=== PATIENT | male | born 1955 | race Caucasian/White ===

== ENCOUNTER 2024-02-02 16:10 | Emergency (ER) | payer MEDICARE, SELFPAY ==
--- NOTE | 2024-02-02 16:23 | USR_ITS ---
PROCEDURE INFORMATION: Exam: US Scrotum and Artery or Vein of the Abdominal and/or Reproductive Organs, Limited Scrotum Exam date and time: 02/02/2024 5:02 PM Age: 68 years old Clinical indication: Swelling, testicles or scrotum; Additional info: Testicle swelling TECHNIQUE: Imaging protocol: Real-time ultrasound of the scrotum. Real-time duplex ultrasound scan of the arterial or venous flow with kulkarni scale, color Doppler flow and spectral waveform analysis with image documentation. Limited Duplex exam focused of the scrotum. Duplex exam was performed to evaluate for torsion and other vascular conditions. COMPARISON: CT chest abdpel w/*[id number] 03/20/2018 8:55 PM FINDINGS: Right testicle: The right testicle measures 4.4 x 2.6 x 2.8 cm. No mass. Normal arterial and venous waveforms on Doppler. No torsion. Left testicle: The left testicle measures 4.5 x 2.2 x 2.6 cm. No mass. Normal arterial and venous waveforms on Doppler. No torsion. Epididymides: Normal. Scrotum/soft tissues: There are large bilateral hydroceles more prominent on the right.. US/US scrotum [id number] IMPRESSION: Large bilateral hydroceles more prominent on the right. Otherwise normal scrotal ultrasound.
--- NOTE | 2024-02-02 16:23 | XRR_ITS ---
PROCEDURE INFORMATION: Exam: XR Chest Exam date and time: 02/02/2024 4:50 PM Age: 68 years old Clinical indication: Shortness of breath; Additional info: SOB TECHNIQUE: Imaging protocol: Radiologic exam of the chest. Views: 1 view. COMPARISON: CT chest joshuapel w/*[id number] 03/20/2018 8:55 PM FINDINGS: Lungs: There is a calcified granuloma in the far lateral left base. Pleural spaces: Airspace opacity with a probable accompanying pleural effusion is seen in the right base. No pneumothorax. Heart/Mediastinum: Unremarkable. No cardiomegaly. Bones/joints: Unremarkable. XR/XR chest 1V portable [id number] IMPRESSION: Airspace opacity with a probable accompanying pleural effusion is seen in the right base.
[2024-02-02 16:25] VITALS: BP 141/82; PULSE 90; RESP 20; TEMP 37; O2SAT 94; BMI 28.0
--- NOTE | 2024-02-02 16:28 | ECG_ITS ---
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 Measurements Intervals [place] Rate: 86 P: 50 [place]: 181 QRS: 61 QRSD: 106 T: 16 QT: 398 QTc: 477 Interpretive Statements SINUS RHYTHM WITH OCCASIONAL VENTRICULAR PREMATURE COMPLEXES POSSIBLE ANTERIOR MYOCARDIAL INFARCTION , PROBABLY OLD [30 ms Q WAVE IN V3/V4, OR R < 0.2 mV IN V4] Compared to ECG 05/10/2017 23:14:14 Ventricular premature complex(es) now present Myocardial infarct finding now present Electronically Signed On 02-02-2024 16:44:03 CDT by Sohail De Leon M.D. [id number]
--- NOTE | 2024-02-02 16:30 | ED_ITS ---
HPI - Male Genitourinary 2 General: Chief complaint: Urogenital-Male Stated complaint: swollen testicles, red Time Seen by Provider: 02/02/24 16:18 Source: patient Mode of arrival: ambulatory Limitations: no limitations History of Present Illness: 68-year-old male who states that he has had a history of COPD but he states he has not seen a physician in years. He states that today and went to urgent care she had some slight increase shortness of breath but it is time for him to get a new primary physician. He states that he had seen them and started on inhaler along with steroids and they are getting him follow-up PCP states that he did not tell them about his testicles or he states he has been having testicle swelling for the last 3 to 4 days and states he feels like they have enlarged and sees been in town today. He has no known history of CHF he denies any testicle pain denies dysuria. Associated symptoms: Deny nausea or vomiting Review of Systems 2 Const: Denies: fever(s), chills, body aches or change in appetite ENMT: Denies: throat pain or dental pain Card: Denies: chest pain Resp: Reports: dyspnea and wheezing GI: Denies: abdominal pain, nausea, vomiting or diarrhea : Reports: scrotal swelling Musc: Denies: neck pain or back pain Skin/Breast: Denies: rash Neuro: Denies: headache(s) Physical Exam 2 Const: COMMON NORMALS: patient oriented x3 HENMT: COMMON NORMALS: normocephalic and atraumatic HEAD & SCALP: n ormocephalic and atraumatic Eye: COMMON NORMALS: conjunctivae normal CONJUNCTIVA: Yes conjunctivae normal Neck/C-Spine: COMMON NORMALS: full ROM and supple Chest: COMMONS NORMALS: normal inspection of the chest Resp: COMMON NORMALS: normal respiratory effort, No retractions and No use of accessory muscles AUSCULTATION: wheezes Cardio: COMMON NORMALS: regular rate, regular rhythm and No murmurs present (Cardio) RATE: regular rate RHYTHM: regular rhythm GI: COMMON NORMALS: Normal to inspection, nondistended, normoactive bowel sounds present, Soft to palpation, non-tender and no masses PALPATION: Yes Soft to palpation : OTHER: Swelling noted to bilateral testicles no tenderness on exam no signs of cellulitis Extremity: COMMON NORMALS: normal to inspection and full ROM Neuro: COMMON NORMALS: patient oriented x3, moves all extremities and no focal motor deficits Psych: COMMON NORMALS: mental status grossly normal, Normal thought process present and cooperative THOUGHT PROCESS: Normal thought process present Skin: COMMON NORMALS: no rashes or lesions noted and no wounds GENERAL SKIN EXAM: no rashes or lesions noted Course 2 Vital Signs: Vital signs: Vital Signs Temperature 98.6 F 02/02/24 18:55 Pulse Rate 86 02/02/24 18:55 Respiratory Rate 20 H 02/02/24 18:55 Blood Pressure 141/108 02/02/24 18:55 Pulse Oximetry 92 02/02/24 18:55 Oxygen Delivery Me thod Room Air 02/02/24 18:04 MDM - Male Medical Decision Making Patient presents here with testicle swelling is also been having some shortness of breath. He has an elevated BNP CT also shows pleural effusion concerning for new onset congestive heart failure. I strongly recommended admission to patient due to the effusion and likely CHF this is likely causing some of his testicle swelling as well he does have hydroceles on ultrasound as well no signs of torsion. Patient refused admission he is signing out AGAINST MEDICAL ADVICE. He understands the risks and has medical decision making capacity we will start him on Lasix he is to follow-up with PCP return if worsening or if he changes his mind he understands agrees to plan Medical Records I reviewed the patient's medical records. Lab Data I reviewed the patient's lab results. 02/02/24 16:35 02/02/24 16:35 Radiology Impressions Chest X-Ray 02/02/24 16:23 IMPRESSION: Airspace opacity with a probable accompanying pleural effusion is seen in the right base. Scrotum Ultrasound 02/02/24 16:23 IMPRESSION: Large bilateral hydroceles more prominent on the right. Otherwise normal scrotal ultrasound. Chest CTA 02/02/24 16:57 IMPRESSION: Bilateral pleural effusions suspected to relate to congestive heart failure. No evident pulmonary embolic disease. Cholelithiasis. COMMENTS: The presence of pulmonary emphysema on CT is an independent risk factor for lung cancer. In the absence of a history or active diagnosis of lung cancer, it is recommended that this patient with emphysema be evaluated for enrollment in a low dose CT lung cancer screening program. Laboratory Results WBC 10.10 10^3/uL (3.29-11.43) 02/02/24 16:35 RBC 4.88 10^6/uL (3.85-5.65) 02/02/24 16:35 Hgb 13.90 g/dL (11.27-16.99) 02/02/24 16:35 Hct 43.9 % (37-53) 02/02/24 16:35 MCV 90.0 fl (82-101) 02/02/24 16:35 MCH 28.5 pg (27-33) 02/02/24 16:35 MCHC 31.7 g/dL (30-55) 02/02/24 16:35 RDW 16.2 % (12.1-15.1) H 02/02/24 16:35 Plt Count 220 10^3/cmm (157-399) 02/02/24 16:35 MPV 11.9 fL (7.4-10.4) H 02/02/24 16:35 Neut % (Auto) 75.8 % 02/02/24 16:35 Lymph % (Auto) 13.5 % 02/02/24 16:35 [place] % (Auto) 7.5 % 02/02/24 16:35 Eos % (Auto) 2.0 % 02/02/24 16:35 Baso % (Auto) 0.8 % 02/02/24 16:35 Neut # (Auto) 7.66 10^3/uL (1.8-7.7) 02/02/24 16:35 Lymph # (Auto) 1.4 10^3/uL (0.8-4.8) 02/02/24 16:35 [place] # (Auto) 0.8 10^3/uL (0.2-0.9) 02/02/24 16:35 Eos # (Auto) 0.2 10^3/uL (0.0-0.8) 02/02/24 16:35 Baso # (Auto) 0.1 10^3/uL (0.0-0.1) 02/02/24 16:35 Nucleated RBC % (auto) 0 % 02/02/24 16:35 Nucleated RBCs # 0.0 /100WBC 02/02/24 16:35 Sodium 138 mmol/L (136-145) 02/02/24 16:35 Potassium 3.2 mmol/L (3.5-5.1) L 02/02/24 16:35 Chloride 101 mmol/L (98-107) 02/02/24 16:35 Carbon Dioxide 22 mmol/L (22-29) 02/02/24 16:35 Anion Gap 18.2 (5-19) 02/02/24 16:35 BUN 10 mg/dL (8-23) 02/02/24 16:35 Creatinine 0.9 mg/dL (0.7-1.2) 02/02/24 16:35 GFR Calculation 84.4 mL/min (90-130) L 02/02/24 16:35 Glucose 98 mg/dL (65-115) 02/02/24 16:35 Calculated Osmolality 285 mOsm/kg (285-295) 02/02/24 16:35 Calcium 8.0 mg/dL (8.5-10.5) L 02/02/24 16:35 Total Bilirubin 1.6 mg/dL (0.15-1.2) H 02/02/24 16:35 AST 24 U/L (0-40) 02/02/24 16:35 ALT 11 U/L (0-41) 02/02/24 16:35 Alkaline Phosphatase 93 U/L (40-130) 02/02/24 16:35 NT-Pro-B Natriuret Pep 8806 pg/mL (0-125) H 02/02/24 16:35 Total Protein 7.4 g/dL (6.6-8.7) 02/02/24 16:35 Albumin 3.5 g/dL (3.5-5.2) 02/02/24 16:35 Globulin 3.9 g/dL (1.3-4.6) 02/02/24 16:35 All radiology interpretation(s) finalized by discharge EKG Data EKG 1: I personally reviewed and interpreted this EKG as follows: EKG Data: 02/02/24 EKG interpretation time: 16:28 Interpretation: nsr hr [address] elevation qrs 106 qtc 441 Discharge Plan Discharge Patient Disposition: Home Clinical Impression: CHF (congestive heart failure), Hydrocele Condition: Stable Prescriptions: New Lasix 40 mg tablet 40 mg PO DAILY Qty: 30 0RF No Action prednisone 20 mg tablet 40 mg PO DAILY 5 Days Qty: 10 0RF albuterol sulfate [Ventolin HFA] 90 mcg/actuation HFA aerosol inhaler 2 puff inhalation QID Qty: 6.7 0RF Discharge Orders: Discharge ED (Routine); Ordered 02/02/24 Ordered By: Katlyn Sy Discharge Diet: Advance as tolerated Discharge Activity: Resume usual activity Patient Instructions: Heart Failure (ED) Coding Level of Care Code ED Director Of Investigations for Jacoby Chowdhury
[2024-02-02 16:44] LABS: Basophils # 0.1 10^3/uL (0.0-0.1); Basophils % 0.8 %; Eosinophils # 0.2 10^3/uL (0.0-0.8); Hematocrit 43.9 % (37-53); Lymphocytes # 1.4 10^3/uL (0.8-4.8); Lymphocytes % 13.5 %; Mean Corpuscular HGB Conc 31.7 g/dL (30-55); Mean Corpuscular Hemoglobin 28.5 pg (27-33); Mean Platelet Volume 11.9 fL (7.4-10.4); Monocytes # 0.8 10^3/uL (0.2-0.9); Monocytes % 7.5 %; Neutrophils # 7.66 10^3/uL (1.8-7.7); Neutrophils % 75.8 %; Nucleated Red Blood Cells % 0 %; Platelet Count 220 10^3/cmm (157-399); Red Blood Count 4.88 10^6/uL (3.85-5.65); Red Cell Distribution Width 16.2 % (12.1-15.1)
[2024-02-02 16:54] VITALS: BP 135/76; PULSE 83; O2SAT 93
--- NOTE | 2024-02-02 16:57 | CTR_ITS ---
PROCEDURE INFORMATION: Exam: CTA Chest With Contrast Exam date and time: 02/02/2024 5:32 PM Age: 68 years old Clinical indication: Dyspnea; Patient HX: PT reports swollen testicles x3 days. PT states he noticed some redness 3 days ago, PT states he came to town today and reports his testicles double in size. PT has poor hygiene. PT has expiratory wheezing, PT reports having chf and copd. PT denies wearing oxygen at home. PT denies pain in testicle area, PT reports its more a pressure. ; Additional info: Sob/possible mass TECHNIQUE: Imaging protocol: Computed tomographic angiography of the chest with contrast. Exam focused on the arteries. 3D rendering (Not supervised by radiologist): MIP and/or 3D reconstructed images were created by the technologist. Radiation optimization: All CT scans at this facility use at least one of these dose optimization techniques: automated exposure control; mA and/or kV adjustment per patient size (includes targeted exams where dose is matched to clinical indication); or iterative reconstruction. Contrast material: OMNI 350; Contrast volume: 90 ml; Contrast route: INTRAVENOUS (IV); COMPARISON: CR XR chest 1V portable [id number] 02/02/2024 4:50 PM RADIATION DOSE METRICS: Total DLP (mGy-cm): 528 FINDINGS: Tubes, catheters and devices: Spinal stimulator lead is positioned in thoracic spinal canal. Pulmonary arteries: Normal. No pulmonary emboli. Aorta: Aortic calcifications are noted. No findings of aneurysm or mediastinal hemorrhage. Veins: Contrast reflux into inferior vena cava and hepatic veins noted. Lungs: Airspace disease at right middle and lower lobes is favored to represent atelectasis; findings are moderate at right middle lobe and mild to moderate at right lower lobe. Mild paraseptal emphysema. Pleural spaces: Moderate to large right pleural effusion. Small left pleural effusion. Heart: Mild cardiomegaly. Coronary arteries: Coronary calcifications are noted. Lymph nodes: No enlarged lymph nodes. Gallbladder and bile ducts: Calcified cholelithiasis noted. Bones/joints: Well corticated defect is seen at posterior spinous process of T1. No acute bony findings. Soft tissues: Mild edema in subcutaneous fat over sternum. There is also symmetrically distributed edema in subcutaneous fat at flanks. CT/CT angio chest PE protcl [id number] IMPRESSION: Bilateral pleural effusions suspected to relate to congestive heart failure. No evident pulmonary embolic disease. Cholelithiasis. COMMENTS: The presence of pulmonary emphysema on CT is an independent risk factor for lung cancer. In the absence of a history or active diagnosis of lung cancer, it is recommended that this patient with emphysema be evaluated for enrollment in a low dose CT lung cancer screening program.
[2024-02-02 17:14] LABS: Alanine Aminotransferase 11 U/L (0-41); Albumin Level 3.5 g/dL (3.5-5.2); Alkaline Phosphatase 93 U/L (40-130); Anion Gap 18.2 (5-19); Aspartate Amino Transferase 24 U/L (0-40); Blood Urea Nitrogen 10 mg/dL (8-23); Carbon Dioxide 22 mmol/L (22-29); Chloride 101 mmol/L (98-107); Creatinine Clr Calc Pharmacy 87.8101; Globulin 3.9 g/dL (1.3-4.6); Glomerular Filtration Rate 84.4 mL/min (90-130); Glucose 98 mg/dL (65-115); NT Pro B Type Natriuretic Pept 8806 pg/mL (0-125); Osmolality Calculated 285 mOsm/kg (285-295); Potassium 3.2 mmol/L (3.5-5.1); Sodium 138 mmol/L (136-145); Total Bilirubin 1.6 mg/dL (0.15-1.2); Total Protein 7.4 g/dL (6.6-8.7)
[2024-02-02] MEDS: iohexol 350 mg/mL 500 mL Btl (per mL) IV (17:54)
[2024-02-02 18:04] VITALS: BP 141/108; PULSE 86; O2SAT 92
[2024-02-02] MEDS: FUROsemide 10 mg/mL SDV 10mL 60 MG IVP (18:52)
[2024-02-02 18:55] VITALS: BP 141/108; PULSE 86; RESP 20; TEMP 37; O2SAT 92
== END 2024-02-02 18:59 | disposition home or self-care (01) ==
PROVIDERS: Emergency Provider Emergency Medicine
DX: N43.3 Hydrocele, unspecified (principal); I50.9 Heart failure, unspecified; J44.9 Chronic obstructive pulmonary disease, unspecified
CPT/HCPCS: 36415; 71045; 71275; 76870; 80053; 83880; 85025; 93005; 96374; 99285; J1940; Q9967

== ENCOUNTER 2024-03-01 12:31 | Inpatient (IN) | payer MEDICARE, SELFPAY ==
[2024-03-01] VITALS (15 sets, daily range): BP systolic 79–172; BP diastolic 43–96; PULSE 76–84; RESP 16–26; TEMP 36.4–36.5; O2SAT 92–98; BMI 31.0; BMI 31.8
--- NOTE | 2024-03-01 12:38 | XRR_ITS ---
PROCEDURE INFORMATION: Exam: XR Chest Exam date and time: 03/01/2024 1:16 PM Age: 68 years old Clinical indication: Shortness of breath; Additional info: Weakness TECHNIQUE: Imaging protocol: Radiologic exam of the chest. Views: 1 view. COMPARISON: CT angio chest PE protcl [id number] 02/02/2024 5:32 PM FINDINGS: Lungs: No focal consolidation. Pleural spaces: No evidence of pneumothorax. No evidence of pleural effusion. Heart/Mediastinum: Cardiomediastinal silhouette is within normal limits. Bones/joints: No evidence of acute osseous abnormality. XR/XR chest 1V portable [id number] IMPRESSION: 1. No acute cardiopulmonary abnormality.
--- NOTE | 2024-03-01 12:39 | ECG_ITS ---
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 Measurements Intervals [place] Rate: 79 P: 71 [place]: 183 QRS: -22 QRSD: 115 T: 66 QT: 447 QTc: 513 Interpretive Statements SINUS RHYTHM POSSIBLE ANTERIOR MYOCARDIAL INFARCTION , OF INDETERMINATE AGE [30 ms Q WAVE IN V3/V4, OR R < 0.2 mV IN V4] Compared to ECG 02/02/2024 16:28:00 Ventricular premature complex(es) no longer present Myocardial infarct finding still present Electronically Signed On 03-01-2024 21:56:59 CDT by Vishnu Sr M.D. [id number]
--- NOTE | 2024-03-01 12:59 | ED_ITS ---
HPI - General Adult 2 General: Chief complaint: Shortness of Breath/Dyspnea Stated complaint: Chest pain, Bites all over, SOB Time Seen by Provider: 03/01/24 12:34 History of Present Illness: 68-year-old man who [facility] with several complaints. He says he has been more short of breath than usual. He has been having some pleuritic chest pain. He also has sores and wounds all over his body. Apparently he had gotten out onto his porch and yelled for neighbor to call for help. He is wheelchair-bound. He OPD and hypertension. He had a stroke in the past. CHF is listed in his history as well. [facility] ED 2 PFS: Medical History (Updated 03/01/24 @ 15:56 by Shonna Benito MD) Smoker Obesity (BMI 30.0-34.9) Chronic back pain Hx of arterial ischemic stroke Hx of myocardial infarction COPD (chronic obstructive pulmonary disease) Hydrocele CHF (congestive heart failure) Surgical History (Updated 02/11/24 @ 10:34 by Bandar Jones MD) History of appendectomy History of back surgery Family History (Updated 02/11/24 @ 09:56 by Essence Abarca LPN) Father Cancer Mother No problems noted. Social History (Updated 02/11/24 @ 09:57 by Essence Abarca LPN) Smoking and tobacco/nicotine status: current every day tobacco/nicotine user Quit status (tobacco/nicotine): not considering quitting Alcohol intake: current Alcohol intake frequency: 0-2 Drinks per Day Alcohol type: beer Substance/Drug Use: never Physical Exam 2 Narrative: EXAM NARRATIVE: General: Patient appears quite ill. He is alert. He can answer some questions appropriately Skin: Patient has lesions over his entire body. There is a sore/hole just in his right axilla. Excoriation under his pannus in his groin area. Head: Normocephalic, atraumatic. Neck: Supple, trachea midline. Eye: Extraocular movements are intact. Ears, nose, mouth and throat: Dry oral mucosa Cardiovascular: Regular, Normal peripheral perfusion. Respiratory: Diffuse scattered expiratory wheeze, prolonged expiratory phase, moderate increased work of breathing, breath sounds are equal, Symmetrical chest wall expansion. Gastrointestinal: Soft, Nontender, Non distended Musculoskeletal: Normal ROM, no deformity. Neurological: Alert but somewhat confused, No focal neurological deficit observed. Psychiatric: Cooperative Course 2 Vital Signs: Vital signs: Vital Signs Temperature 97.6 F 03/01/24 12:52 Pulse Rate 76 03/01/24 14:00 Respiratory Rate 18 03/01/24 13:03 Blood Pressure 134/65 03/01/24 14:00 Pulse Oximetry 96 03/01/24 14:00 Oxygen Delivery Me thod Nasal Cannula 03/01/24 14:00 Oxygen Flow Rate 2 03/01/24 14:00 MDM - General Adult Medical Decision Making Medical decision making: Differential diagnosis including but not limited to and based on the above HPI, review of systems and physical exam: In this patient with altered mental status: Stroke. Hypoglycemia. Metabolic encephalopathy. Infections such as pneumonia, urinary tract infection, Covid-19, Influenza. Electrolyte abnormalities such as hypernatremia. Renal failure / uremia. Hepatic encephalopathy. Hypoxemia. Hypercapnic respiratory failure. Psychosis. Drug or alcohol intoxication. Medication overdose. Orders placed to evaluate differential diagnosis based on the above differential, HPI and physical exam EKG: Time 1256. Rate 79. No peaked T waves. Normal sinus rhythm, No ST-T changes, no ectopy, normal ME & QRS intervals, This was reviewed and interpreted by myself the ER physician at 1300. Repeat EKG: Time 1445. Rate 72. No peaked T waves. Normal sinus rhythm, No ST-T changes, no ectopy, normal ME & QRS intervals, This was reviewed and interpreted by myself the ER physician at at 1450 Lab Review: Laboratory results were reviewed and interpreted by myself the emergency room physician. Leukocytosis with a white count of 27.5. He is not anemic. Hemoglobin is 13.8. Although he likely is quite concentrated. BUN and creatinine are 76 and 17. Potassium is 6. Phosphorus is 16.5. Urinalysis appears infected. CT of the chest abdomen and pelvis: This was done without contrast secondary to renal failure. No obvious acute process in either of the chest abdomen or pelvis. This was reviewed and interpreted by myself the emergency room physician. I also reviewed the radiology report. Consultation: I spoke with the hospitalist on-call Dr. Carreno who agrees to admission and requests nephrology consultation. Consultation: I spoke with Dr. Dupree who is on telemedicine for nephrology. Discussed the patient with him and he will review the chart and make recommendations. I reviewed the patient's medical record. Reexamination: Patient's blood pressure has improved some with fluids. He is still little bit confused but will answer some questions. He talks to me. No focal motor deficits. Work of breathing seems improved now that he is in bed and at rest. Assessment and plan: Renal failure Hyperkalemia Sepsis Hypotension Metabolic encephalopathy COPD with acute exacerbation Rhabdomyolysis Metabolic acidosis Skin infection Urinary tract infection -2.0 L normal saline bolus. With his history of CHF and with his new renal failure careful hydration. -Broad-spectrum antibiotics were administered. Meropenem and Zyvox. -Sepsis quality measures. -Lactic acid with a reflex was ordered. -Blood cultures were ordered. -Nephrology consultation. No emergent indication for dialysis. Blood pressure improved with fluids. He does not appear fluid overloaded. No lower extremity edema. No edema on his CT scan of his chest. Potassium is mildly elevated at 6 but he has no EKG changes. -I discussed the patient with the hospitalist on-call who is admitting the patient. - Discussed findings and plan with patient. Answered any questions. - All laboratory values were reviewed and interpreted personally by myself, the ER physician - All imaging was reviewed and interpreted personally by myself, the ER physician. - Evaluation and treatment of this problem were appropriate in the emergency setting -I spent a total of >35 minutes of critical care time managing the patient, independent of any other practitioner. -The time involved in the performance of separately reportable procedures was not counted towards critical care time. Lab Data 03/01/24 12:58 03/01/24 12:58 Radiology Impressions Chest X-Ray 03/01/24 12:38 IMPRESSION: 1. No acute cardiopulmonary abnormality. Chest/Abdomen/Pelvis CT 03/01/24 14:07 IMPRESSION: 1. No evidence of acute abnormality within limitations of a noncontrast exam. 2. Mild emphysematous changes. The presence of pulmonary emphysema on CT is an independent risk factor for lung cancer. In the absence of a history or active diagnosis of lung cancer, it is recommended that this patient with emphysema be evaluated for enrollment in a low dose CT lung cancer screening program. IMPRESSION: 1. No evidence of acute abnormality in the abdomen or pelvis within limitations of a noncontrast exam. Laboratory Results WBC 27.46 10^3/uL (3.29-11.43) H 03/01/24 12:58 RBC 5.06 10^6/uL (3.85-5.65) 03/01/24 12:58 Hgb 13.80 g/dL (11.27-16.99) 03/01/24 12:58 Hct 42.8 % (37-53) 03/01/24 12:58 MCV 84.6 fl (82-101) 03/01/24 12:58 MCH 27.3 pg (27-33) 03/01/24 12:58 MCHC 32.2 g/dL (30-55) 03/01/24 12:58 RDW 17.6 % (12.1-15.1) H 03/01/24 12:58 Plt Count 393 10^3/cmm (157-399) 03/01/24 12:58 MPV 10.4 fL (7.4-10.4) 03/01/24 12:58 Neut % (Auto) 89.5 % 03/01/24 12:58 Lymph % (Auto) 3.6 % 03/01/24 12:58 Cameron % (Auto) 5.3 % 03/01/24 12:58 Eos % (Auto) 0.1 % 03/01/24 12:58 Baso % (Auto) 0.4 % 03/01/24 12:58 Neut # (Auto) 24.54 10^3/uL (1.8-7.7) H 03/01/24 12:58 Lymph # (Auto) 1.0 10^3/uL (0.8-4.8) 03/01/24 12:58 Cameron # (Auto) 1.5 10^3/uL (0.2-0.9) H 03/01/24 12:58 Eos # (Auto) 0.0 10^3/uL (0.0-0.8) 03/01/24 12:58 Baso # (Auto) 0.1 10^3/uL (0.0-0.1) 03/01/24 12:58 Nucleated RBC % (auto) 0 % 03/01/24 12:58 Nucleated RBCs # 0.0 /100WBC 03/01/24 12:58 ESR 94 mm/hr (0-10) H 03/01/24 12:58 Specimen Type Arterial 03/01/24 12:46 Sample Site Radial, right 03/01/24 12:46 ABG pH 7.21 (7.35-7.45) L 03/01/24 12:46 ABG pCO2 25.1 mmHg (35-45) L 03/01/24 12:46 ABG pO2 97.6 mmHg (80.0-100.0) 03/01/24 12:46 ABG PO2/FiO2 Ratio 464 03/01/24 12:46 ABG HCO3 10.0 mmol/L (22-26) L 03/01/24 12:46 ABG O2 Saturation 96.3 03/01/24 12:46 ABG Base Excess -16.1 mmol/L (-2.0-2.0) L 03/01/24 12:46 Lucian Test Pos 03/01/24 12:46 A-a O2 Gradient 2.4 mmHg (5-10) L 03/01/24 12:46 Hematocrit 44.1 % (42-52) 03/01/24 12:46 Hgb O2 Saturation 93.7 % (95-100) L 03/01/24 12:46 Carboxyhemoglobin 2.1 %THgb (0.4-20.1) 03/01/24 12:46 Methemoglobin 0.7 % (0.4-1.5) 03/01/24 12:46 Total Hemoglobin 14.4 g/dL (14-18) 03/01/24 12:46 Sodium 133.0 mmol/L (131-143) 03/01/24 12:46 Potassium 5.3 mmol/L (3.5-5.0) H 03/01/24 12:46 Glucose 87.0 mg/dL (70-115) 03/01/24 12:46 Ionized Calcium 0.7 mmol/L (1.1-1.4) L 03/01/24 12:46 O2 Delivery Device Room air 03/01/24 12:46 FiO2 21.0 % 03/01/24 12:46 Acute Care Nursing Assistant ID [place] 03/01/24 12:46 Sodium 133 mmol/L (136-145) L 03/01/24 12:58 Potassium 6.0 mmol/L (3.5-5.1) H 03/01/24 12:58 Chloride 85 mmol/L (98-107) L 03/01/24 12:58 Carbon Dioxide 9 mmol/L (22-29) L 03/01/24 12:58 Anion Gap 45.0 (5-19) H 03/01/24 12:58 BUN 76 mg/dL (8-23) H 03/01/24 12:58 Creatinine 17.0 mg/dL (0.7-1.2) H* 03/01/24 12:58 GFR Calculation 2.8 mL/min (90-130) L 03/01/24 12:58 Glucose 87 mg/dL (65-115) 03/01/24 12:58 Calculated Osmolality 298 mOsm/kg (285-295) H 03/01/24 12:58 Lactic Acid 2.9 mmol/L (0.5-2.2) H 03/01/24 13:03 Calcium 5.9 mg/dL (8.5-10.5) L 03/01/24 12:58 Phosphorus 16.9 mg/dL (2.5-4.5) H* 03/01/24 12:58 Magnesium 2.1 mg/dL (1.7-2.3) 03/01/24 12:58 Total Bilirubin 0.4 mg/dL (0.15-1.2) 03/01/24 12:58 AST 31 U/L (0-40) 03/01/24 12:58 ALT 11 U/L (0-41) 03/01/24 12:58 Alkaline Phosphatase 86 U/L (40-130) 03/01/24 12:58 Creatine Kinase 2938 U/L (39-308) H* 03/01/24 12:58 Troponin T Baseline 173 ng/L (0-15) H* 03/01/24 12:58 Troponin T 120 Minute 160.4 ng/L (0-15) H 03/01/24 14:54 Delta Troponin T -12.6 ABS# (0-10) L 03/01/24 14:54 C-Reactive Protein 406.2 mg/L (0.0-4.9) H 03/01/24 12:58 NT-Pro-B Natriuret Pep 61983 pg/mL (0-125) H 03/01/24 12:58 Total Protein 8.1 g/dL (6.6-8.7) 03/01/24 12:58 Albumin 3.3 g/dL (3.5-5.2) L 03/01/24 12:58 Globulin 4.8 g/dL (1.3-4.6) H 03/01/24 12:58 Procalcitonin 1.32 ng/mL (0-0.5) H 03/01/24 12:58 Urine Color Dark yellow (Yellow) A 03/01/24 13:48 Urine Appearance Cloudy (CLEAR) A 03/01/24 13:48 Urine pH 5 (5-7) 03/01/24 13:48 Ur Specific [place] 1.030 (1.005-1.030) 03/01/24 13:48 Urine Protein 1+ (Negative) H 03/01/24 13:48 Urine Glucose (UA) Trace (Normal) H 03/01/24 13:48 Urine Ketones 1+ (Negative) H 03/01/24 13:48 Urine Blood 2+ (Negative) H 03/01/24 13:48 Urine Nitrate Negative (Negative) 03/01/24 13:48 Urine Bilirubin 1+ (Negative) H 03/01/24 13:48 Urine Urobilinogen Norm mg/dL (Negative) 03/01/24 13:48 Ur Leukocyte Esterase 2+ (Negative) H 03/01/24 13:48 Urine RBC 0-4 /hpf (0-2) H 03/01/24 13:48 Urine WBC 55-80 /hpf (0-5) H 03/01/24 13:48 Ur Squamous Epith Cells 40-55 /hpf (0-5) H 03/01/24 13:48 Amorphous Sediment Not Reportable 03/01/24 13:48 Urine Bacteria 1+ /hpf (NONE) H 03/01/24 13:48 Serum Ketones Negative (Negative) 03/01/24 12:58 All radiology interpretation(s) finalized by discharge Discharge Plan Discharge Patient Disposition: Admitted As Inpatient Clinical Impression: Acute renal failure, Rhabdomyolysis, Sepsis, COPD with acute exacerbation, Skin infection, Metabolic encephalopathy, Uremia, Metabolic acidosis Condition: Stable Coding Level of Care Code ED Machine Worker for Jacoby Chowdhury
[2024-03-01 13:00] LABS: ABG PCO2 25.1 mmHg (35-45); ABG PH Result 7.21 (7.35-7.45); Alveolar-Arterial Oxygen Gradi 2.4 mmHg (5-10); Arterial Blood Gas Hematocrit 44.1 % (42-52); Base Excess ABG -16.1 mmol/L (-2.0-2.0); Blood Gas Allen Test Pos; Blood Gas Operator Identificat WALCI; Blood Gas Sample Site Radial, right; Blood Gas Sample Type Arterial; Carboxyhemoglobin 2.1 %THgb (0.4-20.1); HGB O2 Sat 93.7 % (95-100); Ionized Calcium Level - ABG 0.7 mmol/L (1.1-1.4); Methemoglobin 0.7 % (0.4-1.5); Oxygen Device ROOM AIR; Oxygen Saturation ABG 96.3; PO2 ABG 97.6 mmHg (80.0-100.0); PO2 FiO2 Ratio Arterial Blood 464; Potassium Level - ABG 5.3 mmol/L (3.5-5.0); Total Hemoglobin 14.4 g/dL (14-18)
[2024-03-01] MEDS: albuterol 2.5 mg/3 mL Neb INHALATION (13:06)
[2024-03-01] MEDS: methylPREDNISolone sod succ 125 mg/2 mL INJ IVP (13:15)
[2024-03-01 13:20] LABS: Basophils # 0.1 10^3/uL (0.0-0.1); Basophils % 0.4 %; Eosinophils % 0.1 %; Hematocrit 42.8 % (37-53); Lymphocytes % 3.6 %; Mean Corpuscular HGB Conc 32.2 g/dL (30-55); Mean Corpuscular Hemoglobin 27.3 pg (27-33); Mean Corpuscular Volume 84.6 fl (82-101); Mean Platelet Volume 10.4 fL (7.4-10.4); Monocytes # 1.5 10^3/uL (0.2-0.9); Monocytes % 5.3 %; Neutrophils # 24.54 10^3/uL (1.8-7.7); Neutrophils % 89.5 %; Nucleated Red Blood Cells % 0 %; Platelet Count 393 10^3/cmm (157-399); Red Blood Count 5.06 10^6/uL (3.85-5.65); Red Cell Distribution Width 17.6 % (12.1-15.1); White Blood Count 27.46 10^3/uL (3.29-11.43)
[2024-03-01 13:25] LABS: Ketone (Acetest) Serum Negative (Negative)
[2024-03-01] MEDS: meropenem 500 MG in sodium chloride 0.9% (plus) 50 ML 100 MG IV (13:26)
[2024-03-01] MEDS: linezolid premix 600 MG/300 ML PREMIX 300 MG IV (13:26)
[2024-03-01] MEDS: sodium chloride 0.9% 1,000 ML 999 ML IV ×4 (13:26→21:11)
[2024-03-01 13:34] LABS: Lactic Sepsis W/Reflex 2.9 mmol/L (0.5-2.2)
[2024-03-01 13:42] LABS: Troponin(5th) Baseline 173 ng/L (0-15)
[2024-03-01 13:43] LABS: Erythrocyte Sedimentation Rate 94 mm/hr (0-10)
[2024-03-01 13:44] LABS: Alanine Aminotransferase 11 U/L (0-41); Albumin Level 3.3 g/dL (3.5-5.2); Alkaline Phosphatase 86 U/L (40-130); Aspartate Amino Transferase 31 U/L (0-40); Blood Urea Nitrogen 76 mg/dL (8-23); Chloride 85 mmol/L (98-107); Creatinine Clr Calc Pharmacy 4.8681; Globulin 4.8 g/dL (1.3-4.6); Glomerular Filtration Rate 2.8 mL/min (90-130); Glucose 87 mg/dL (65-115); NT Pro B Type Natriuretic Pept 11333 pg/mL (0-125); Osmolality Calculated 298 mOsm/kg (285-295); Sodium 133 mmol/L (136-145); Total Bilirubin 0.4 mg/dL (0.15-1.2); Total Protein 8.1 g/dL (6.6-8.7)
[2024-03-01 13:58] LABS: C Reactive Protein 406.2 mg/L (0.0-4.9); Calcium 5.9 mg/dL (8.5-10.5); Carbon Dioxide 9 mmol/L (22-29); Creatine Phosphokinase 2938 U/L (39-308)
--- NOTE | 2024-03-01 14:07 | CTR_ITS ---
PROCEDURE INFORMATION: Exam: CT Chest Without Contrast; Diagnostic Exam date and time: 03/01/2024 2:42 PM Age: 68 years old Clinical indication: Other: Sepsis renal failure; Prior surgery; Surgery date: 6+ months; Surgery type: Appy back surgery; Additional info: Sepsis. Renal failure TECHNIQUE: Imaging protocol: Diagnostic computed tomography of the chest without contrast. COMPARISON: CT angio chest PE protcl [id number] 02/02/2024 5:32 PM RADIATION DOSE METRICS: Total DLP (mGy-cm): 1079 FINDINGS: Thyroid: Grossly unremarkable. Lungs: No focal consolidation. No pneumothorax. Mild paraseptal emphysematous changes. Pleural spaces: No pleural effusion. Heart: No cardiomegaly. No pericardial effusion. Coronary arteries: There are incidental coronary artery calcifications. Mediastinal space: Trachea and airway are grossly patent. Few calcified mediastinal nodes compatible with sequela of a remote granulomatous process. Lymph nodes: No evidence of mediastinal adenopathy. Evaluation for hilar adenopathy is limited by lack of IV contrast. Vasculature: No evidence of aneurysmal dilatation of the thoracic aorta. Evaluation for acute vascular injury or thrombosis is limited by lack of IV contrast. Bones/joints: No evidence of acute fracture or aggressive osseous lesion. Soft tissues: No evidence of fluid collection or hematoma in the superficial soft tissues. PROCEDURE INFORMATION: Exam: CT Abdomen And Pelvis Without Contrast Exam date and time: 03/01/2024 2:42 PM Age: 68 years old Clinical indication: Other: Sepsis renal failure; Prior surgery; Surgery date: 6+ months; Surgery type: Appy back surgery; Additional info: Sepsis. Renal failure TECHNIQUE: Imaging protocol: Computed tomography of the abdomen and pelvis without contrast. COMPARISON: CT chest abdpel w/*[id number] 03/20/2018 8:55 PM RADIATION DOSE METRICS: Total DLP (mGy-cm): 1079 FINDINGS: Diaphragm: No evidence of diaphragmatic defect. Liver: No evidence of focal hepatic lesion within limitation of a noncontrast exam. Multiple hepatic calcifications compatible with sequela of a remote granulomatous process. Gallbladder and biliary ducts: There is cholelithiasis. No inflammatory changes to suggest acute cholecystitis. No intrahepatic or extrahepatic biliary dilatation. Pancreas: Grossly unremarkable. Spleen: Multiple splenic calcifications compatible with sequela of a remote granulomatous process. Otherwise grossly unremarkable. Adrenal glands: Grossly unremarkable. Kidneys and ureters: No gross renal parenchymal abnormality. No evidence of hydronephrosis or ureteral stone. Stomach and bowel: No evidence of bowel obstruction or perienteric inflammatory changes. Appendix: The appendix is not visualized, however there are no findings to suggest appendicitis. Intraperitoneal space: No evidence of free air or fluid collection. Vasculature: Extensive atherosclerosis without evidence of aneurysmal dilitation of abdominal aorta. Lymph nodes: No evidence of adenopathy. Urinary bladder: The bladder is decompressed by a Moore catheter in expected position. There is a small amount of air within the bladder, which may be secondary to the indwelling Moore catheter. Consider correlation with urinalysis to exclude cystitis with a gas-forming organism. Reproductive: Grossly unremarkable. Bones/joints: No evidence of acute fracture or aggresive osseous lesion. L5-S1 posterior instrumented fusion with interbody cage. Severe advanced osteoarthritis of the right hip. Partially visualized intramedullary serina fixation of the left femur. Soft tissues: No evidence of fluid collection or hematoma in the superficial soft tissues. CT/[place] [id number] IMPRESSION: 1. No evidence of acute abnormality within limitations of a noncontrast exam. 2. Mild emphysematous changes. The presence of pulmonary emphysema on CT is an independent risk factor for lung cancer. In the absence of a history or active diagnosis of lung cancer, it is recommended that this patient with emphysema be evaluated for enrollment in a low dose CT lung cancer screening program. IMPRESSION: 1. No evidence of acute abnormality in the abdomen or pelvis within limitations of a noncontrast exam.
[2024-03-01 14:17] LABS: Bilirubin Urine 1+ (Negative); Blood Urine 2+ (Negative); Glucose Urine UA Trace (Normal); Ketones Urine 1+ (Negative); Leukocyte Esterase Urine 2+ (Negative); Nitrate Urine Negative (Negative); Protein Urine 1+ (Negative); Urine Appearance Cloudy (CLEAR); Urine Color Dark Yellow (Yellow); Urobilinogen Urine Norm (Negative); pH Urine 5 (5-7)
[2024-03-01 14:18] LABS: RBC Urine 0-4 /hpf (0-2); Squamous Epithelial Cell Urine 40-55 /hpf (0-5); WBC Urine 55-80 /hpf (0-5)
[2024-03-01 14:19] LABS: Add Urine Culture? No; Bacteria Urine 1+ /hpf
--- NOTE | 2024-03-01 14:44 | ECG_ITS ---
[facility] Test Date: 2024-03-01 Pat Name: James Zaragoza Department: Room: Gender: Male Legal Advisor: : 1955 Requested By: Shonna Bray Order Number: [id number] Huong MD: Vishnu Sr M.D. Measurements Intervals [place] Rate: 72 P: 71 UT: 195 QRS: -21 QRSD: 120 T: 56 QT: 489 QTc: 535 Interpretive Statements SINUS RHYTHM POSSIBLE ANTERIOR MYOCARDIAL INFARCTION , OF INDETERMINATE AGE [30 ms Q WAVE IN V3/V4, OR R < 0.2 mV IN V4] Compared to ECG 03/01/2024 12:56:07 No significant changes Electronically Signed On 03-01-2024 22:14:08 CDT by Vishnu Sr M.D. [id number]
[2024-03-01 14:50] LABS: Magnesium 2.1 mg/dL (1.7-2.3)
[2024-03-01 14:56] LABS: Phosphorus 16.9 mg/dL (2.5-4.5)
[2024-03-01 14:57] LABS: Procalcitonin 1.32 ng/mL (0-0.5)
[2024-03-01 14:59] LABS: Reflex Lactate Order REFLEX LACTIC ORDERD
[2024-03-01 15:27] LABS: Troponin 5 2HR 160.4 ng/L (0-15); Troponin 5 2HR Delta -12.6 ABS# (0-10)
--- NOTE | 2024-03-01 15:55 | P.CONIM_ITS ---
Providers/Reason For Consult 2 Consulting Physician/Specialty*: Sandor Dupree MD/ telenephrology Reason for Consult*: ADELA Requesting Physician: Dr Beach Attending Physician: Dr Baech Primary Care Provider: Bandar Jones MD History of Present Illness History of Present Illness James Zaragoza is a 68 year old male presented emergency room with weakness and sores all over his body's. The patient was unable to leave the house had a call for help. Patient was found to have acute kidney injury. The patient has a history of CHF COPD bilateral hydroceles, asymptomatic gallstones, depression, ischemic CVA, tobacco use. Review of Systems 2 Narrative: Weak short of breath edema lesions confusion nausea poor appetite. Headaches. Patient takes NSAIDs as needed. Patient states that he drinks some alcohol. He has difficulty urinating over the last couple days. Rest review of systems within normal limits Medications/Allergies Home Medications Medication Instructions Recorded Confirmed Last Taken Type bupropion HCl 100 mg tablet,12 hr 100 mg PO QAM #30 tabs 02/11/24 03/01/24 02/29/24 Rx sustained-release (Wellbutrin SR) furosemide 40 mg tablet (Lasix) 40 mg PO DAILY #30 tabs 02/11/24 03/01/24 02/29/24 Rx lisinopril 10 mg tablet 10 mg PO DAILY heart failure #90 02/11/24 03/01/24 02/29/24 Rx tabs wheelchair #1 ea 02/11/24 03/01/24 Unknown Rx albuterol sulfate 90 mcg/actuation 2 puff inhalation QID PRN 03/01/24 03/01/24 Unknown History aerosol inhaler (Ventolin HFA) Shortness Of Breath Allergies Allergy/AdvReac Type Severity Reaction Status Date / Time No Known Allergies Allergy Unverified 02/11/24 09:41 PFSH Acute 2 PFSH: Medical History (Updated 03/01/24 @ 16:57 by Jose Juan Dupree MD) Smoker Obesity (BMI 30.0-34.9) Chronic back pain Hx of arterial ischemic stroke Hx of myocardial infarction COPD (chronic obstructive pulmonary disease) Hydrocele CHF (congestive heart failure) Surgical History (Updated 02/11/24 @ 10:34 by Bandar Jones MD) History of appendectomy History of back surgery Family History (Updated 02/11/24 @ 09:56 by Essence Abarca LPN) Father Cancer Mother No problems noted. Social History (Updated 02/11/24 @ 09:57 by Essence Abarca LPN) Smoking and tobacco/nicotine status: current every day tobacco/nicotine user Quit status (tobacco/nicotine): not considering quitting Alcohol intake: current Alcohol intake frequency: 0-2 Drinks per Day Alcohol type: beer Substance/Drug Use: never Vitals/I&O/Wt Last Vital Signs Temp 97.6 F 03/01/24 12:52 Pulse 76 03/01/24 14:00 Resp 18 03/01/24 13:03 BP 134/65 03/01/24 14:00 Pulse Ox 96 03/01/24 14:00 O2 Del Method Nasal Cannula 03/01/24 14:00 O2 Flow Rate 2 03/01/24 14:00 Weight last 48 hrs Weight 95.254 kg Physical Exam 2 Narrative: Elderly man in bed sitting up overweight. Vital signs noted. Patient on nasal cannula oxygen. Skin multiple lesions all over diffusely. HEENT normocephalic/atraumatic. Neck is supple. Lungs good air movement. Heart regular Abdomen is soft positive bowel sounds. Extremities have edema. Neuro awake alert oriented x 1-2. The patient was seen and examined using audiovisual technology this was a telehealth visit. The nurse examined the patient. Data 03/01/24 12:58 03/01/24 12:58 Micro: Microbiology 03/01/24 13:03 Blood Culture - Preliminary Blood SPECIMEN COLLECTED 03/01/24 12:58 Blood Culture - Preliminary Blood SPECIMEN COLLECTED A&P Assessment and plan (1) Acute renal failure: The patient is a 68-year-old gentleman history of COPD, CHF I do not have an echo, CVA [place] hydrocele. The patient has recently been started on Lasix and lisinopril along with bupropion. 1. Multiple lesions unlikely infection as per medical service. 2. Acute kidney injury patient had a normal creatinine on February 02, 2024. Patient CT scan without obstruction. Urinalysis reviewed is dark and cloudy 1+ protein trace glucose 1+ ketones 2+ blood 2+ leuk esterase 55-80 white cells. I am concerned for a UTI I am also concerned for ATN. Possible prerenal azotemia. Also send serologies. Noticed baseline creatinine 0.9 is now 17. Ratio consistent with intrinsic renal disease. Increased anion gap metabolic acidosis of 39 anion gap. Patient only has a mild lactic acidosis of 2.9 possibility of starvation acidosis. Also uremia will send ethylene glycol level. Rhabdomyolysis can cross his hyperphosphatemia hypocalcemia and renal insufficiency however would expect a much higher CK than 3000. Will check a uric acid level. Will monitor chemistries closely give significant IV fluids. 3. Increased anion gap metabolic acidosis as stated above. Patient has good respiratory compensation. 4. Hyponatremia check urine lites and monitor. 5. Hypocalcemia hyperphosphatemia and renal failure must concern for tumor lysis syndrome. May need rasburicase based on the labs. I discussed in detail with the patient that he may need emergent dialysis. The patient consents to dialysis if necessary. The patient consented to telehealth visit. The patient was seen and examined using A/V equipment. Patient was seen with the nurse. Qualifiers: Acute renal failure type: unspecified Qualified Code(s): N17.9 - Acute kidney failure, unspecified Plan See above. Consult Attestations 2 Medical Necessity Statement: Hyperphosphatemia, electrolyte abnormalities, increased anion gap metabolic acidosis, ADELA, rhabdomyolysis, infection Time Spent in Patient Care: Greater than 35 minutes (>than 50% of time spent in counselling and/or direct pt care on unit) . Coding Level of Care Code Acute Code for [facility] Diagnoses Acute renal failure, unspecified acute renal failure type N17.9 Acute renal failure type: unspecified
[2024-03-01 16:29] LABS: Lactic Acid level (Lactate) 1.8 mmol/L (0.5-2.2)
--- NOTE | 2024-03-01 17:02 | P.HP_ITS ---
Providers/Chief Complaint 2 Admitting Physician: Armen Carreno Primary Care Provider: Bandar Jones MD Chief Complaint: Chest pain, Bites all over, SOB History of Present Illness Pleasant 68-year-old gentleman with history of COPD, using oxygen at home as needed, current smoker, with chronic back pain, recently with concern for congestive heart failure, with pleural effusions, lower extremity edema, scrotal edema, treated with diuretics, started on lisinopril, started on bupropion with concern for depression relating 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 He was brought in for evaluation to ER after he was calling out for help and was heard by his neighbors, he was not feeling well, he states he felt like he was going to . He has been significantly weak. Has had a few falls including one a couple days ago had to stay on the floor for some time laying on his belly. With some pleuritic discomfort. Has been coughing up some phlegm. He states has not urinated in several days. In ER he is found to have leukocytosis 27.5, elevated ESR 94, acidemia, 7.1/25.1/97.6, hyponatremia 133, hyperkalemia 6, chloride 85, bicarb 9, anion gap 45, BUN 76, creatinine 17 glucose 87. Lactic acid 2.9. Calcium 5.9. Phosphorus 16.9. CK 2938. Baseline troponin 173, chart 160. NT-proBNP 11,333. Albumin 3.3. Globulin 4.8. Procalcitonin 1.32. UA urine cloudy, with 1+ ketones, 55-80 WBC, but also 45-55 SEC. 1+ bacteria. Serum ketones negative. Chest x-ray without acute cardiopulmonary abnormality. CT chest abdomen pelvis with no evidence of acute abnormality on noncontrast study, emphysema. Initially hypotensive on presentation, blood pressure 79/43, received fluid bolus and currently receiving another 1. Started on meropenem, linezolid, given a dose of methylprednisolone, breathing treatment. He is noted to have significant rashes including erythema, excoriation under armpits, in the groin, under pannus. As well as multiple small bite bruce spread throughout the body. He states that something has been biting him at home, he states he has not seen any bedbugs. Has seen cockroaches for sure. He states he has been ambulating a little bit with a walker, but has had a much more difficult time recently. He takes ibuprofen occasionally, maybe once or twice a week. Review of Systems 2 Const: Reports: change in appetite; Denies: fever(s), chills, body aches or malaise ENMT: Denies: throat pain Card: Denies: edema, pre-syncope or dyspnea on exertion Resp: Reports: dyspnea and productive cough; Denies: hemoptysis GI: Denies: abdominal pain, nausea, vomiting, diarrhea, constipation, hematochezia or melena : Denies: flank pain, difficulty urinating, urinary frequency or hematuria Musc: Denies: back pain, joint swelling or joint redness Skin/Breast: Reports: rash and new lesions Neuro: Denies: headache(s), dizziness or confusion Medications/Allergies Home Medications Medication Instructions Recorded Confirmed Last Taken Type bupropion HCl 100 mg tablet,12 hr 100 mg PO QAM #30 tabs 02/11/24 03/01/24 02/29/24 Rx sustained-release (Wellbutrin SR) furosemide 40 mg tablet (Lasix) 40 mg PO DAILY #30 tabs 02/11/24 03/01/24 02/29/24 Rx lisinopril 10 mg tablet 10 mg PO DAILY heart failure #90 02/11/24 03/01/24 02/29/24 Rx tabs wheelchair #1 ea 02/11/24 03/01/24 Unknown Rx albuterol sulfate 90 mcg/actuation 2 puff inhalation QID PRN 03/01/24 03/01/24 Unknown History aerosol inhaler (Ventolin HFA) Shortness Of Breath Allergies Allergy/AdvReac Type Severity Reaction Status Date / Time No Known Allergies Allergy Unverified 02/11/24 09:41 PFSH Acute 2 PFSH: Medical History Smoker Obesity (BMI 30.0-34.9) Chronic back pain Hx of arterial ischemic stroke Hx of myocardial infarction COPD (chronic obstructive pulmonary disease) Hydrocele CHF (congestive heart failure) Surgical History History of appendectomy History of back surgery Family History Father Cancer Mother No problems noted. Social History (Updated 03/01/24 @ 17:19 by Armen Carreno MD) Smoking and tobacco/nicotine status: current every day tobacco/nicotine user Quit status (tobacco/nicotine): not considering quitting Alcohol intake: current Alcohol intake frequency: 0-2 Drinks per Day Alcohol type: beer Substance/Drug Use: never Marital status: / Vitals/I&O/Wt Last Vital Signs Temp 97.6 F 03/01/24 12:52 Pulse 76 03/01/24 14:00 Resp 18 03/01/24 13:03 BP 134/65 03/01/24 14:00 Pulse Ox 96 03/01/24 14:00 O2 Del Method Nasal Cannula 03/01/24 14:00 O2 Flow Rate 2 03/01/24 14:00 03/01/24 03/01/24 03/01/24 06:59 14:59 22:59 Intake Total 1383.3 / 1383.3 Balance 1383.3 / 1383.3 Weight last 48 hrs Weight 95.254 kg Physical Exam 2 Const: COMMON NORMALS: patient oriented x3 and alert GENERAL APPEARANCE: c ooperative ORIENTATION/CONSCIOUSNESS: Yes awake HENMT: COMMON NORMALS: oropharynx normal Neck/C-Spine: COMMON NORMALS: no JVD Resp: COMMON NORMALS: normal respiratory effort and clear to auscultation bilaterally AUSCULTATION: clear to auscultation bilaterally Cardio: COMMON NORMALS: no JVD, regular rhythm, S1 normal heart sound present, S2 normal heart sound present and No murmurs present (Cardio) RHYTHM: regular rhythm HEART SOUNDS: S1 normal heart sound present and S2 normal heart sound present GI: COMMON NORMALS: Normal to inspection, nondistended, normoactive bowel sounds present, Soft to palpation and non-tender PALPATION: Yes Soft to palpation Extremity: COMMON NORMALS: no joint enlargement and no pedal edema Neuro: COMMON NORMALS: patient oriented x3 and moves all extremities S ENSORIUM/ORIENTATION: Yes alert Skin: LESIONS: lesion noted (Multiple small lesions/tiny ulcerations throughout the body, worse on LE) RASHES: rashes noted (Raw, excoriated bilateral armpits, groin, under pannus without rim of eryth) OTHER: No blisters or bullae. Some ulcerations without confluence. Data 03/01/24 12:58 03/01/24 12:58 Micro: Microbiology 03/01/24 13:03 Blood Culture - Preliminary Blood SPECIMEN COLLECTED 03/01/24 12:58 Blood Culture - Preliminary Blood SPECIMEN COLLECTED A&P Assessment and plan (1) Acute renal failure: Acute renal failure, states has not urinated for several days, has been feeling weaker, with pruritus. Reviewed vitals, CBC, ESR, ABG, CMP, lactic acid, magnesium, phosphorus, CK, troponin, UA, CT abdomen pelvis, ER provider note, discussed with ER provider, discussed with line camera operator. Anuric renal failure, so far without urine output, with hyperkalemia, hyperphosphatemia, anion gap metabolic acidosis, BUN 76. With systemic pruritus. CK is 2938, but not likely causing this. He had been recently diagnosed with CHF, will obtain TTE. Was hypotensive on presentation, on Lasix, recently also started on lisinopril. Hold medications for now. He is receiving fluid resuscitation currently. At risk of fluid overload, had pleural effusions on CTA back on 02/01. No PE. Discussed with him high possibility that he may need emergent dialysis with severe metabolic abnormalities, as well as anuria and with history of CHF. He verbalized understanding and agreement. Admission to intensive care unit. Appreciate nephrology assessment, nephrology is following up labs to reassess further for need for urgent renal replacement. He is also started on bicarb drip. Qualifiers: Acute renal failure type: unspecified Qualified Code(s): N17.9 - Acute kidney failure, unspecified (2) Metabolic acidosis: Anion gap metabolic acidosis as above. Lactic acidosis, 2.9-1.8. Reassess chemistry. (3) Uremia: Possible uremia, diffusely pruritic, although suspicion of bedbugs as well. BUN is 76. Appreciate nephrology assessment, he is having short-term reevaluation with consideration of need for urgent dialysis. (4) Skin infection: Raw excoriated areas under both armpits, in the groin, under pannus. Appears like tinea with bacterial superinfection. I do not get the yeast odor. Start terbinafine cream, continue broad-spectrum coverage with Zosyn, linezolid. Avoid meropenem at this time due to risk of seizure with renal failure. Monitor for risk of adrenal cytosis with linezolid. At risk of sepsis, leukocytosis 27.46. Lactic acidosis. Hypotension on presentation. Additionally diffuse ulcerated rash, he states after insect bites at home, has not seen bedbugs, thought that it was from cockroaches, but discussed with him that they are not known to do that. Possible bedbugs. Requesting daily bath, discussed with nursing staff room will benefit from he fumigation. Requesting case management consultation. (5) Rhabdomyolysis: Moderate rhabdomyolysis, CK 2938, reassess CK. Possibly after a fall and staying on the floor for some time at home with generalized weakness. Possibly with dehydration, hypotension. (6) Smoker: Current smoker, discussed smoking cessation for 5 minutes. He states he knows he should quit. He is agreeable to nicotine patch, will add lozenges as needed as well. (7) Hyperkalemia: Received Kayexalate (8) Abnormal urinalysis: (9) CHF (congestive heart failure): Recently diagnosed with CHF, hold Lasix for now. Assess TTE. Monitor CHECO. Monitor oxygenation previously with pleural effusions. NT-proBNP 11,333. Qualifiers: Heart failure chronicity: acute on chronic Heart failure type: combined systolic and diastolic Qualified Code(s): I50.43 - Acute on chronic combined systolic (congestive) and diastolic (congestive) heart failure (10) Chronic back pain: Qualifiers: Back pain location: low back pain Back pain laterality: bilateral S ciatica presence: without sciatica Qualified Code(s): M54.50 - Low back pain, unspecified; G89.29 - Other chronic pain Plan Difficulty coping after loss of his in 2012: Possible depression, started on bupropion by PCP. Will hold for now, consider resumption at lower dose, 75 mg. Decreasing functional capacity: With recent difficulties with ambulation, using walker, but had also required a wheelchair. Difficult social situation, some limited social support. Poor living conditions at home. Will request PT evaluation. Case management consultation. Attestations 2 Medical Necessity Statement*: Admission of over 2 midnights anticipated for assessment management of acute renal failure, possibly uremia, multiple metabolic abnormalities and gentleman with underlying congestive heart failure, poor social situation. Coding Level of Care Code Critical Care >/= 30 minutes Critical care time (in minutes): 40 The high probability of a clinically significant, sudden or life threatening deterioration, as referenced in this documentation, required my full and direct attention, intervention and personal management. The critical care time shown is in addition to time spent performing any reported separately billable procedures and includes the following: [x] Data and vital sign review and interpretation [x ] Patient assessment, examination and intervention [x] Medication orders and management [x] Patient/Family updates as able [x] Care Coordination and Documentation. Diagnoses Acute renal failure, unspecified acute renal failure type N17.9 Acute renal failure type: unspecified Metabolic acidosis E87.20 Uremia N19 Skin infection L08.9 Rhabdomyolysis M62.82 Smoker F17.200 Hyperkalemia E87.5 Abnormal urinalysis R82.90 Acute on chronic combined systolic and diastolic congestive heart failure I50.43 Heart failure chronicity: acute on chronic Heart failure type: combined systolic and diastolic Chronic bilateral low back pain without sciatica M54.50; G89.29 Back pain location: low back pain Back pain laterality: bilateral Sciatica presence: without sciatica
--- NOTE | 2024-03-01 17:21 | USCV_ITS ---
James Zaragoza Age: 68 Gender: M : 1955 Exam Date: 03/01/2024 19:33 Ordering Phys: Armen Carreno MD Technologist: MAGDA Exam Location: [facility] [place] Indication: SOB, CP, Hx HTN, CHF, OPD BP: 134 / 65 HR: 76 Rhythm: Sinus Technical Quality: Suboptimal MEASUREMENTS (Male / Female) Normal Values 2D ECHO LV Diastolic Diameter PLAX 5.7 cm 4.2 - 5.9 / 3.9 - 5.3 cm IVS Diastolic Thickness 1.1 cm 0.6 - 1.0 / 0.6 - 0.9 cm IVS Systolic Thickness 1.0 cm LVPW Diastolic Thickness 1.1 cm 0.6 - 1.0 / 0.6 - 0.9 cm LVPW Systolic Thickness 1.6 cm LVOT Diameter 2.0 cm LV Ejection Fraction 2D Teich 35.3 % LV Ejection Fraction MOD 2C 31.2 % LV Ejection Fraction 2C AL 31.5 % LA Diameter 4.7 cm Aorta at Sinotubular Diameter 3.1 cm IVC Diameter 1.4 cm M-MODE LA Ao Ratio MM 1.4 AV Cusp Separation MM 1.4 cm DOPPLER AV Peak Velocity 286.0 cm/s LVOT Peak Velocity 99.0 cm/s AV Area Cont Eq vti 1.1 cm squared AV Area Cont Eq pk 1.1 cm squared MV Peak Velocity 151.0 cm/s MV Area PHT 4.0 cm squared Mitral E to A Ratio 0.9 TV Peak E Velocity 46.0 cm/s Right Atrial Pressure 3.0 mmHg PV Peak Velocity 117.0 cm/s FINDINGS Left Ventricle Suboptimal imaging. The ventricle is normal in size. There are no obvious wall motion disturbances. The left ventricular function is lower limit of normal to mildly globally hypokinetic. Ejection fraction is around 50%. Grade 1 diastolic dysfunction. Right Ventricle Normal right ventricular size and systolic function. Right Atrium The right atrium is normal in size. Left Atrium The left atrium is normal in size. Mitral Valve Structurally normal mitral valve. Trace mitral valve regurgitation. Aortic Valve Structurally normal trileaflet aortic valve. Moderate aortic valve calcification. Mild aortic valve stenosis, mean gradient 14.5 mmHg, MANJINDER 1.1 cm squared. Mild aortic valve regurgitation. Tricuspid Valve Structurally normal tricuspid valve. Pulmonic Valve Pulmonic valve not well visualized. Pericardium Normal pericardium without effusion. Aorta Normal ascending aorta dimension. IVC The inferior vena cava appears normal. CONCLUSIONS Suboptimal imaging. The ventricle is normal in size. There are no obvious wall motion disturbances. The left ventricular function is lower limit of normal to mildly globally hypokinetic. Ejection fraction is around 50%. Grade 1 diastolic dysfunction. Structurally normal mitral valve. Trace mitral valve regurgitation. Structurally normal trileaflet aortic valve. Moderate aortic valve calcification. Mild aortic valve stenosis, mean gradient 14.5 mmHg, MANJINDER 1.1 cm squared. Mild aortic valve regurgitation. There are no prior echocardiogram studies to compare. Dr. Dickson Rios MD (Electronically Signed) Final Date: 02 March 2024 18:41 S
[2024-03-01 18:11] LABS: Estmated Average Glucose 123; Hemoglobin A1C 5.9 % (4.0-6.0)
[2024-03-01 18:16] LABS: Hepatitis B Core AB, Total Non-Reactive (Nonreactive); Hepatitis B Surface AB < 3.5 (11.5-1000); Hepatitis B Surface Antigen Non-Reactive (Nonreactive)
[2024-03-01] MEDS: sodium bicarbonate 150 MEQ in dextrose 5% 1,000 ML IV (18:18)
[2024-03-01] MEDS: sodium polystyrene sulfonate 15 gm/60 mL Btl 30 GM PO ×2 (18:22→23:50)
[2024-03-01] MEDS: heparin 5,000 unit/mL INJ 1 mL 5000 UNIT SUBCUT (18:23)
[2024-03-01] MEDS: terbinafine 1% Cream 15 gm 1 APPLIC TOPICAL (18:23)
[2024-03-01] MEDS: nicotine 21 mg Patch 1 PATCH TRANSDERMA (18:23)
--- NOTE | 2024-03-01 18:25 | PC.NURSE ---
ADULT [employer]ECTIVE SERVICES REPORT MADE. CASE# [id number]
[2024-03-01 18:27] LABS: Calcium 5.7 mg/dL (8.5-10.5)
[2024-03-01 19:03] LABS: Potassium, Radom Urine 44 mmol/L; Urine Creatinine 497 mg/dL (39-259); Urine Random Chloride 27 mmol/L; Urine Random Sodium 23 mmol/L
[2024-03-01 19:51] LABS: Troponin 5 6HR Delta -39.8 ng/L (0-12)
[2024-03-01 19:52] LABS: Parathyroid Hormone 229.4 pg/mL (15-65)
[2024-03-01 19:53] LABS: Troponin 5 6HR 133.2 ng/L (0-15)
[2024-03-01 20:08] LABS: Thyroid Stimulating Hormone 15.99 uIU/mL (0.27-4.20)
[2024-03-01 20:23] LABS: Alanine Aminotransferase 11 U/L (0-41); Albumin Level 3.2 g/dL (3.5-5.2); Alkaline Phosphatase 85 U/L (40-130); Blood Urea Nitrogen 76 mg/dL (8-23); Chloride 89 mmol/L (98-107); Complement C3 179 mg/dL (90-180); Globulin 4.6 g/dL (1.3-4.6); Glucose 118 mg/dL (65-115); Osmolality Calculated 302 mOsm/kg (285-295); Sodium 134 mmol/L (136-145); Total Bilirubin 0.4 mg/dL (0.15-1.2); Total Protein 7.8 g/dL (6.6-8.7); Uric Acid 17.9 mg/dL (3.4-7.0)
[2024-03-01 20:27] LABS: Aspartate Amino Transferase 29 U/L (0-40)
[2024-03-01 20:28] LABS: Lactate Dehydrogenase 536 U/L (135-225)
[2024-03-01 20:30] LABS: Calcium 5.6 mg/dL (8.5-10.5); Carbon Dioxide 8 mmol/L (22-29); Creatinine Clr Calc Pharmacy 5.2423; Phosphorus 15.1 mg/dL (2.5-4.5)
--- NOTE | 2024-03-01 21:42 | ECG_ITS ---
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 Measurements Intervals [place] Rate: 81 P: 81 SC: 228 QRS: -21 QRSD: 96 T: 43 QT: 424 QTc: 495 Interpretive Statements SINUS RHYTHM WITH FIRST DEGREE AV BLOCK POSSIBLE ANTERIOR MYOCARDIAL INFARCTION , OF INDETERMINATE AGE [30 ms Q WAVE IN V3/V4, OR R < 0.2 mV IN V4] Compared to ECG 03/01/2024 14:44:57 First degree AV block now present Myocardial infarct finding still present Electronically Signed On 03-01-2024 22:04:14 CDT by Vishnu Sr M.D. [email or web address]
[2024-03-01 22:07] LABS: ABG PCO2 28.9 mmHg (35-45); ABG PH Result 7.22 (7.35-7.45); Alveolar-Arterial Oxygen Gradi 0.3 mmHg (5-10); Arterial Blood Gas Hematocrit 40.9 % (42-52); Base Excess ABG -14.3 mmol/L (-2.0-2.0); Blood Gas Allen Test Pos; Blood Gas Sample Site Brachial, right; Blood Gas Sample Type Arterial; Carboxyhemoglobin 1.3 %THgb (0.4-20.1); HCO3 ABG 11.9 mmol/L (22-26); Ionized Calcium Level - ABG 0.7 mmol/L (1.1-1.4); Methemoglobin 0.7 % (0.4-1.5); Oxygen Device NC; Oxygen Saturation ABG 97.9; Potassium Level - ABG 5.2 mmol/L (3.5-5.0); Total Hemoglobin 13.3 g/dL (14-18)
--- NOTE | 2024-03-01 23:12 | P.CONIM_ITS ---
Providers/Reason For Consult 2 Consulting Physician/Specialty*: General surgery Reason for Consult*: Need for emergent dialysis Attending Physician: Armen Carreno Primary Care Provider: Bandar Jones MD History of Present Illness History of Present Illness James Zaragoza is a 68 year old male who was admitted to the hospital with acute renal failure, rhabdomyolysis hyperkalemia and metabolic acidosis. He has a creatinine of 16 and a high anion gap, I was consulted as dialysis needs to be performed in an emergent basis. A temporary dialysis catheter has been requested. Review of Systems 2 General: Reports: 10 or more systems reviewed and unremarkable except in HPI and below Medications/Allergies Home Medications Medication Instructions Recorded Confirmed Last Taken Type bupropion HCl 100 mg tablet,12 hr 100 mg PO QAM #30 tabs 02/11/24 03/01/24 02/29/24 Rx sustained-release (Wellbutrin SR) furosemide 40 mg tablet (Lasix) 40 mg PO DAILY #30 tabs 02/11/24 03/01/24 02/29/24 Rx lisinopril 10 mg tablet 10 mg PO DAILY heart failure #90 02/11/24 03/01/24 02/29/24 Rx tabs wheelchair #1 ea 02/11/24 03/01/24 Unknown Rx albuterol sulfate 90 mcg/actuation 2 puff inhalation QID PRN 03/01/24 03/01/24 Unknown History aerosol inhaler (Ventolin HFA) Shortness Of Breath Allergies Allergy/AdvReac Type Severity Reaction Status Date / Time No Known Allergies Allergy Unverified 02/11/24 09:41 Current Medications Generic Name Dose Route Start Last Admin Trade Name Freq PRN Reason Stop Dose Admin Heparin Sodium (Porcine) 5,000 unit 03/01/24 17:30 03/01/24 18:23 Heparin 5,000 Unit/Ml Inj 1 Ml SUBCUT 5,000 unit Q12H SANCHEZ Administration Sodium Chloride 1,000 mls @ 999 mls/hr 03/01/24 15:45 03/01/24 22:39 Sodium Chloride 0.9% IV Infused .Q1H1M SANCHEZ Infusion Sodium Bicarbonate 150 meq/ 1,150 mls @ 150 mls/hr 03/01/24 17:15 03/01/24 18:18 Dextrose IV 150 mls/hr .Q7H40M SANCHEZ Administration Nicotine 1 patch 03/01/24 18:00 03/01/24 18:23 Nicotine 21 Mg Patch TRANSDERMA 1 patch Q24H SANCHEZ Administration Terbinafine HCl 1 applic 03/01/24 18:00 03/01/24 18:23 Terbinafine 1% Cream 15 Gm TOPICAL 1 applic BID SANCHEZ Administration PFSH Acute 2 PFSH: Medical History Smoker Obesity (BMI 30.0-34.9) Chronic back pain Hx of arterial ischemic stroke Hx of myocardial infarction COPD (chronic obstructive pulmonary disease) Hydrocele CHF (congestive heart failure) Surgical History History of appendectomy History of back surgery Family History Father Cancer Mother No problems noted. Social History (Updated 03/01/24 @ 17:19 by Armen Carreno MD) Smoking and tobacco/nicotine status: current every day tobacco/nicotine user Quit status (tobacco/nicotine): not considering quitting Alcohol intake: current Alcohol intake frequency: 0-2 Drinks per Day Alcohol type: beer Substance/Drug Use: never Marital status: / Vitals/I&O/Wt Last Vital Signs Temp 97.7 F 03/01/24 20:00 Pulse 78 03/01/24 21:00 Resp 19 H 03/01/24 21:00 BP 99/47 03/01/24 21:00 Pulse Ox 97 03/01/24 21:00 O2 Del Method Nasal Cannula 03/01/24 20:00 O2 Flow Rate 2 03/01/24 20:00 03/01/24 03/01/24 03/02/24 14:59 22:59 06:59 Intake Total 4383.3 / 4383.3 Balance 4383.3 / 4383.3 Weight last 48 hrs Weight 216 lb Weight 210 lb Physical Exam 2 GI: OTHER: Abdomen soft, nontender, nondistended. Extremity: OTHER: Bilateral groins were evaluated right groin has significant excoriations and erythema, left groin appears normal, I proceeded to interrogate the left groin with the ultrasound and a good target was visualized. Data 03/01/24 12:58 03/01/24 19:01 Micro: Microbiology 03/01/24 13:03 Blood Culture - Preliminary Blood SPECIMEN COLLECTED 03/01/24 12:58 Blood Culture - Preliminary Blood SPECIMEN COLLECTED A&P Assessment and plan (1) Obesity (BMI 30.0-34.9): (2) CHF (congestive heart failure): Qualifiers: Heart failure chronicity: acute on chronic Heart failure type: combined systolic and diastolic Qualified Code(s): I50.43 - Acute on chronic combined systolic (congestive) and diastolic (congestive) heart failure (3) Acute renal failure: Qualifiers: Acute renal failure type: unspecified Qualified Code(s): N17.9 - Acute kidney failure, unspecified (4) Metabolic acidosis: (5) Hyperkalemia: Plan After complete history, physical examination and review of all available clinical data I agree that the patient will benefit from hemodialysis in an emergent setting, therefore I will proceed with dialysis catheter placement. I discussed with the patient all risk and benefits of the procedure including the risk of infection, bleeding, retroperitoneal hematoma, need for additional interventions, injury to surrounding structures, nerve damage, catheter nonfunction. After discussion of all risk and benefits we decided to proceed. -Dialysis catheter placed and is ready to be used -I have contacted the nephrology team and made him aware that the catheter is ready. Coding Level of Care Code 61643 Diagnoses Obesity (BMI 30.0-34.9) E66.9 Acute on chronic combined systolic and diastolic congestive heart failure I50.43 Heart failure chronicity: acute on chronic Heart failure type: combined systolic and diastolic Acute renal failure, unspecified acute renal failure type N17.9 Acute renal failure type: unspecified Metabolic acidosis E87.20 Hyperkalemia E87.5
--- NOTE | 2024-03-01 23:16 | PM.ACPR ---
Procedure/Consent Time out: Time Out Performed: Yes Consent: Consent for Procedure: Consent obtained from patient Procedure Narrative: After a timeout was conducted I prepped and draped the left groin in the usual sterile fashion. I then identified the left femoral vein and proceeded to cannulated with an 18-gauge needle under direct ultrasound visualization. A wire was advanced and the needle was removed, position of the wire bias verified with ultrasound. I then proceeded to made small cut in the skin at the level of the wire insertion site to allow for passage of the dilators. The tract was subsequently dilated and then the catheter was advanced over the wire with standard technique. The wire was removed. The catheter was working well, was flushing and retrieving below the good rate from both ports. The catheter was flushed and capped. The catheter was fixed to the skin with #2-0 silk. A sterile dressing and Biopatch was applied. At the end of the procedure patient tolerated well and remained in the ICU in critical but stable condition. Acute Procedures Epistaxis Control: Time out performed: Yes
[2024-03-01] MEDS: calcium gluconate 0.9% NaCL 1 GM/50 ML PREMIX IV (23:51)
[2024-03-02] VITALS (31 sets, daily range): BP systolic 79–163; BP diastolic 53–88; PULSE 73–95; RESP 13–27; TEMP 36.3–37.1; O2SAT 94–100; BMI 32.0
[2024-03-02] MEDS: insulin regular-human 100 units/1 mL 10 UNIT IVP ×2 (00:22→00:27)
[2024-03-02 01:39] LABS: Anion Gap 37.4 (5-19); Blood Urea Nitrogen 79 mg/dL (8-23); Carbon Dioxide 15 mmol/L (22-29); Chloride 92 mmol/L (98-107); Glomerular Filtration Rate 2.9 mL/min (90-130); Glucose 148 mg/dL (65-115); Osmolality Calculated 314 mOsm/kg (285-295); Potassium 5.4 mmol/L (3.5-5.1); Sodium 139 mmol/L (136-145)
[2024-03-02] MEDS: piperacillin-tazobactam 3.375 GM in sodium chloride 0.9% (plus) 50 ML IV ×2 (01:47→12:44)
[2024-03-02] MEDS: linezolid premix 600 MG/300 ML PREMIX 300 MG IV ×2 (01:47→13:19)
[2024-03-02 02:03] LABS: Creatinine Clr Calc Pharmacy 5.0529
[2024-03-02 02:04] LABS: Creatine Phosphokinase 2731 U/L (39-308); Phosphorus 15.6 mg/dL (2.5-4.5)
[2024-03-02 02:57] LABS: Urine Random Sodium 56 mmol/L
[2024-03-02 05:07] LABS: Basophils % 0.2 %; Hematocrit 37.4 % (37-53); Lymphocytes # 0.3 10^3/uL (0.8-4.8); Lymphocytes % 1.9 %; Mean Corpuscular HGB Conc 32.6 g/dL (30-55); Mean Corpuscular Hemoglobin 27.2 pg (27-33); Mean Corpuscular Volume 83.3 fl (82-101); Mean Platelet Volume 10.3 fL (7.4-10.4); Monocytes # 0.1 10^3/uL (0.2-0.9); Monocytes % 0.7 %; Neutrophils # 16.55 10^3/uL (1.8-7.7); Neutrophils % 96.4 %; Nucleated Red Blood Cells % 0 %; Platelet Count 279 10^3/cmm (157-399); Red Blood Count 4.49 10^6/uL (3.85-5.65); Red Cell Distribution Width 17.2 % (12.1-15.1); White Blood Count 17.17 10^3/uL (3.29-11.43)
[2024-03-02 05:30] LABS: Alanine Aminotransferase 9 U/L (0-41); Albumin Level 3.2 g/dL (3.5-5.2); Alkaline Phosphatase 75 U/L (40-130); Anion Gap 37.2 (5-19); Aspartate Amino Transferase 22 U/L (0-40); Carbon Dioxide 14 mmol/L (22-29); Chloride 92 mmol/L (98-107); Globulin 3.7 g/dL (1.3-4.6); Glomerular Filtration Rate 3.1 mL/min (90-130); Glucose 196 mg/dL (65-115); Osmolality Calculated 318 mOsm/kg (285-295); Potassium 4.2 mmol/L (3.5-5.1); Sodium 139 mmol/L (136-145); Total Bilirubin 0.3 mg/dL (0.15-1.2); Total Protein 6.9 g/dL (6.6-8.7)
[2024-03-02 05:35] LABS: Hepatitis B Surface AB < 3.5 (11.5-1000); Hepatitis B Surface Antigen Non-Reactive (Nonreactive); Hepatitis C Virus Antibody Non-Reactive (Nonreactive)
[2024-03-02 05:56] LABS: Ferritin 206 ng/mL (30-400); Percent Saturation 28.8 % (20-50); Total Iron Binding Capacity 194 mcg/dl; Unsaturated Iron Binding 138 ug/dL (112-347)
[2024-03-02 06:01] LABS: Blood Urea Nitrogen 82 mg/dL (8-23); Calcium 5.5 mg/dL (8.5-10.5); Creatinine Clr Calc Pharmacy 5.3205; Phosphorus 14.5 mg/dL (2.5-4.5)
[2024-03-02 06:02] LABS: Creatine Phosphokinase 2423 U/L (39-308)
[2024-03-02 06:20] LABS: 25 Hydroxy Vitamin D < 6 ng/mL (30-100); Iron 56 ug/dL (59-158)
[2024-03-02] MEDS: heparin, porcine 1,000 unit/mL INJ 10 mL 1000 UNIT HE (06:52)
--- NOTE | 2024-03-02 06:58 | P.PN_ITS ---
Subjective 2 Subjective: seen and examined. has made some urine overnight. using nc02. has multiple skin wounds. no n/v/f/c/leal/d Medications: Reviewed: Yes Medication Review Details: Current Medications Acetaminophen (Acetaminophen 325 Mg Tablet) 650 mg PO Q6H PRN PRN Reason: Mild/Mod Pain Or Temp >/= 101 Sodium Bicarbonate 150 meq/ (Dextrose) 1,150 mls @ 150 mls/hr IV .Q7H40M [facility] Last Infusion: 03/02/24 06:56 Dose: Infused Linezolid (Zyvox Premix) 600 mg in 300 mls @ 300 mls/hr IV Q12H [facility]; Protocol Last Infusion: 03/02/24 05:04 Dose: Infused Piperacillin Sod/Tazobactam (Sod 3.375 gm/ Sodium Chloride) 50 mls @ 12.5 mls/hr IV Q12H [facility]; Protocol Last Infusion: 03/02/24 06:51 Dose: Infused Sodium Chloride (Sodium Chloride 0.9%) 1,000 mls @ 0 mls/hr IV .Q0M PRN PRN Reason: hypotension or symptomatic Dextrose (D10w) 250 mls @ 1,000 mls/hr IV PRN PRN PRN Reason: HYPOGLYCEMIA Nicotine (Nicotine 21 Mg Patch) 1 patch TRANSDERMA Q24H [facility] Last Admin: 03/01/24 18:23 Dose: 1 patch Nicotine Polacrilex (Nicotine 4 Mg Lozenge) 4 mg MUCOUS MEM Q4H PRN PRN Reason: NICOTINE CRAVINGS Ondansetron HCl (Ondansetron 2 Mg/Ml Sdv 2 Ml) 4 mg IVP Q8H PRN PRN Reason: vomiting, or N/V if npo Terbinafine HCl (Terbinafine 1% Cream 15 Gm) 1 applic TOPICAL BID [facility] Last Admin: 03/01/24 18:23 Dose: 1 applic Vitals/I&O/Wt Last Vital Signs Temp 97.4 F L 03/02/24 04:00 Pulse 83 03/02/24 06:00 Resp 16 03/02/24 04:30 BP 114/53 03/02/24 04:30 Pulse Ox 96 03/02/24 04:30 O2 Del Method Nasal Cannula 03/02/24 04:30 O2 Flow Rate 2 03/02/24 04:30 03/01/24 03/01/24 03/02/24 14:59 22:59 06:59 Intake Total 4383.3 / 4383.3 1550 / 5933.3 Output Total 250 / 250 Balance 4383.3 / 4383.3 1300 / 5683.3 Weight last 48 hrs Weight 98.43 kg Weight 98.43 kg Weight 97.976 kg Weight 95.254 kg Physical Exam 2 Narrative: Elderly man in bed lying down, overweight. Vital signs noted. Patient on nasal cannula oxygen. Skin multiple lesions all over diffusely. HEENT normocephalic/atraumatic. Neck is supple. Lungs good air movement. Heart regular Abdomen is soft positive bowel sounds. Extremities have edema. Neuro awake alert oriented x 2-3, moves all extremities but weak The patient was seen and examined using audiovisual technology this was a telehealth visit. The nurse examined the patient. Data 03/02/24 04:15 03/02/24 04:15 Micro: Microbiology 03/01/24 13:03 Blood Culture - Preliminary Blood SPECIMEN COLLECTED 03/01/24 12:58 Blood Culture - Preliminary Blood SPECIMEN COLLECTED A&P Assessment and plan (1) Acute renal failure: The patient is a 68-year-old gentleman history of COPD, CHF I do not have an echo, CVA [place] hydrocele. The patient has recently been started on Lasix and lisinopril along with bupropion. 1. Multiple lesions-likely infection as per medical service. 2. Acute kidney injury patient had a normal creatinine on February 02, 2024. Patient CT scan without obstruction. Urinalysis reviewed is dark and cloudy 1+ protein trace glucose 1+ ketones 2+ blood 2+ leuk esterase 55-80 white cells. I am concerned for ATN vs prerenal azotemia. Q of TLS CK under 3000, is too low to cause such severe ADELA o-send serologies. Noticed baseline creatinine 0.9 is now 17. BUN: cr ratio consistent with intrinsic renal disease. - k improved - inc AGMA is improving - but AG remains 33 -as on dialysis, can d/c bicarb drip for now -etiology can be uremia, send ethylene glycol level -inc URic acid, low ca, elevated phos is c/w TLS- please assess for possible cancer 3. replete vit d -I discussed in detail with the patient, the benefits and risks of hemodialysis. This patient's creatinine remains elevated. Patient still has increase in negative metabolic acidosis. Patient remains oliguric. Discussed with hospitalist and we feel would be best to initiate dialysis. Surgery placed a femoral catheter. We are starting dialysis now. And will monitor daily for further dialysis needs. Follow-up serologies. Normal complements. 4. Hypothyroidism please give levothyroxine consider IV. The patient consented to telehealth visit. The patient was seen and examined using A/V equipment. Patient was seen with the nurse. Case discussed in detail with the patient, ICU nurse, hemodialysis nurse, and with the hospitalist overnight multiple times Qualifiers: Acute renal failure type: unspecified Qualified Code(s): N17.9 - Acute kidney failure, unspecified Plan See above. Attestations 2 Medical Necessity Statement*: Metabolic acidosis, acute kidney injury, hyperuricemia, hypocalcemia, vitamin D deficiency. Time Spent in Patient Care: Greater than 35 minutes (>than 50% of time spent in counselling and/or direct pt care on unit) . Coding Level of Care Code Acute Code for Chg Fwd Diagnoses Acute renal failure, unspecified acute renal failure type N17.9 Acute renal failure type: unspecified
[2024-03-02] MEDS: calcium carbonate 500 mg Chew Tablet 1250 MG PO ×3 (08:38→20:57)
[2024-03-02] MEDS: ergocalciferol (vitamin D2) 50,000 Unit Capsule 50000 UNIT PO (08:38)
--- NOTE | 2024-03-02 10:01 | PC.SOCIAL ---
IMM Update Pg. 2 of IMM updated and reviewed with patient, who verbalized understanding. Copy provided.
--- NOTE | 2024-03-02 12:13 | PM.PN ---
Subjective Subjective: Patient evaluated this morning at the bedside after I was informed that his dialysis catheter was not working well. Per dialysis nurse reported pressures were up and have poor flow from the arterial lumen. Vitals/I&O/Wt Last Vital Signs Temp 97.6 F 03/02/24 07:29 Pulse 89 03/02/24 08:36 Resp 16 03/02/24 08:30 BP 148/76 03/02/24 08:30 Pulse Ox 96 03/02/24 08:36 O2 Del Method Nasal Cannula 03/02/24 08:36 O2 Flow Rate 2 03/02/24 08:36 03/01/24 03/02/24 03/02/24 22:59 06:59 14:59 Intake Total 4383.3 / 4383.3 1550 / 5933.3 0 / 0 Output Total 250 / 250 Balance 4383.3 / 4383.3 1300 / 5683.3 0 / 0 Weight last 48 hrs Weight 217 lb Weight 217 lb Weight 216 lb Weight 210 lb Physical Exam Extremity: NARRATIVE EXTREMITY EXAM: Dialysis catheter noted in place in the left groin, with a sterile technique with these was reposition it, it was retracted 2 cm and excellent flow was achieved, catheter fix with #2-0 silk. Data 03/02/24 04:15 03/02/24 04:15 Micro: Microbiology 03/01/24 13:03 Blood Culture - Preliminary Blood SPECIMEN COLLECTED 03/01/24 12:58 Blood Culture - Preliminary Blood SPECIMEN COLLECTED A&P Assessment and plan (1) CAD (coronary artery disease): Qualifiers: Coronary Disease-Associated Artery/Lesion type: [place] artery [place] vs. transplanted heart: [place] heart Associated angina: with stable angina Qualified Code(s): I25.118 - Atherosclerotic heart disease of [place] coronary artery with other forms of angina pectoris (2) CHF (congestive heart failure): Qualifiers: Heart failure chronicity: acute on chronic Heart failure type: combined systolic and diastolic Qualified Code(s): I50.43 - Acute on chronic combined systolic (congestive) and diastolic (congestive) heart failure (3) Acute renal failure: Qualifiers: Acute renal failure type: unspecified Qualified Code(s): N17.9 - Acute kidney failure, unspecified Plan I evaluated this morning the patient due to difficulty getting adequate pressures with the dialysis catheter, the catheter was repositioned and after that excellent flow was achieved. Patient was able to get dialysis after repositioning. Attestations Medical Necessity Statement*: Per medical team Coding Level of Care Code Acute Code for g Fwd Diagnoses Coronary artery disease of [place] artery of [place] heart with stable angina pectoris I25.118 Coronary Disease-Associated Artery/Lesion type: [place] artery [place] vs. transplanted heart: [place] heart Associated angina: with stable angina Acute on chronic combined systolic and diastolic congestive heart failure I50.43 Heart failure chronicity: acute on chronic Heart failure type: combined systolic and diastolic Acute renal failure, unspecified acute renal failure type N17.9 Acute renal failure type: unspecified
[2024-03-02] MEDS: nicotine 21 mg Patch 1 PATCH TRANSDERMA (17:28)
[2024-03-02] MEDS: terbinafine 1% Cream 15 gm 1 APPLIC TOPICAL (17:29)
--- NOTE | 2024-03-02 20:00 | PC.NURSE ---
Patient transferred on his bed to room 270.
--- NOTE | 2024-03-02 21:36 | P.PN_ITS ---
Subjective 2 Subjective: He had dialysis catheter placed, underwent dialysis. He is feeling improvement in his condition after dialysis. Vitals/I&O/Wt Last Vital Signs Temp 98.7 F 03/02/24 20:00 Pulse 73 03/02/24 20:00 Resp 18 03/02/24 20:00 BP 96/62 03/02/24 20:48 Pulse Ox 97 03/02/24 20:00 O2 Del Method Nasal Cannula 03/02/24 08:36 O2 Flow Rate 2 03/02/24 08:36 03/02/24 03/02/24 03/02/24 06:59 14:59 22:59 Intake Total 1550 / 5933.3 300 / 300 530 / 830 Output Total 250 / 250 400 / 400 Balance 1300 / 5683.3 300 / 300 130 / 430 Weight last 48 hrs Weight 98.43 kg Weight 98.43 kg Weight 97.976 kg Weight 95.254 kg Physical Exam 2 Const: COMMON NORMALS: patient oriented x3 and alert GENERAL APPEARANCE: c ooperative ORIENTATION/CONSCIOUSNESS: Yes awake HENMT: COMMON NORMALS: oropharynx normal Neck/C-Spine: COMMON NORMALS: no JVD Resp: COMMON NORMALS: normal respiratory effort and clear to auscultation bilaterally AUSCULTATION: clear to auscultation bilaterally Cardio: COMMON NORMALS: no JVD, regular rhythm, S1 normal heart sound present, S2 normal heart sound present and No murmurs present (Cardio) RHYTHM: regular rhythm HEART SOUNDS: S1 normal heart sound present and S2 normal heart sound present GI: COMMON NORMALS: Normal to inspection, nondistended, normoactive bowel sounds present, Soft to palpation and non-tender PALPATION: Yes Soft to palpation Extremity: COMMON NORMALS: no joint enlargement and no pedal edema Neuro: COMMON NORMALS: patient oriented x3 and moves all extremities S ENSORIUM/ORIENTATION: Yes alert Skin: LESIONS: lesion noted (Multiple small lesions/tiny ulcerations throughout the body, worse on LE) RASHES: rashes noted (Raw, excoriated bilateral armpits, groin, under pannus without rim of eryth) OTHER: No blisters or bullae. Some ulcerations without confluence. Data 03/02/24 04:15 03/02/24 04:15 Micro: Microbiology 03/01/24 13:03 Blood Culture - Preliminary Blood NEGATIVE TO DATE 03/01/24 12:58 Blood Culture - Preliminary Blood NEGATIVE TO DATE A&P Assessment and plan (1) Acute renal failure: Still with severe metabolic disturbances, including BUN 82, creatinine 15.8, bicarb 14, phosphorus 14.5, calcium 5.5. Reviewed vitals, CBC, CMP, phosphorus, magnesium, iron studies, CK, vitamin D, nephrology note, discussed with nursing, discussed with pillowcase maker. Dialysis catheter was placed and he was able to undergo dialysis. He is doing somewhat better. Follow-up chemistries, monitor CHECO. Reassess renal function. Discussed with case management, may need consideration of continuation of dialysis after discharge. Additionally may benefit from rehabilitation. There working with him on consideration of SNF. CK is improving. Monitor for risk of hypotension, electrolyte disturbance with hemodialysis. Acute renal failure, states has not urinated for several days. Recently diagnosed with CHF. Reviewed echocardiogram, low normal EF, 50%, grade 1 diastolic function, no obvious RWMA. Mildly globally hypokinetic LV. Was hypotensive on presentation, on Lasix, recently also started on lisinopril. Hold medications for now. He is receiving fluid resuscitation currently. At risk of fluid overload, had pleural effusions on CTA back on 02/01. No PE. Discussed with him high possibility that he may need emergent dialysis with severe metabolic abnormalities, as well as anuria and with history of CHF. He verbalized understanding and agreement. Admission to intensive care unit. Appreciate nephrology assessment, nephrology is following up labs to reassess further for need for urgent renal replacement. Bicarb drip is held. Qualifiers: Acute renal failure type: unspecified Qualified Code(s): N17.9 - Acute kidney failure, unspecified (2) Metabolic acidosis: Anion gap metabolic acidosis as above. Lactic acidosis, 2.9-1.8. Reassess chemistry. (3) Uremia: Started on hemodialysis. Possible uremia, diffusely pruritic, although suspicion of bedbugs as well. BUN is 76. Appreciate nephrology assessment, he is having short-term reevaluation with consideration of need for urgent dialysis. (4) Skin infection: Continue IV antibiotic coverage. Continue topical antifungal. Reassess CBC, monitor for risk of cytopenias with linezolid. Tinea corporis with secondary bacterial cellulitis. Raw excoriated areas under both armpits, in the groin, under pannus. Appears like tinea with bacterial superinfection. I do not get the yeast odor. Start terbinafine cream, continue broad-spectrum coverage with Zosyn, linezolid. Avoid meropenem at this time due to risk of seizure with renal failure. Monitor for risk of adrenal cytosis with linezolid. At risk of sepsis, leukocytosis 27.46. Lactic acidosis. Hypotension on presentation. Additionally diffuse ulcerated rash, he states after insect bites at home, has not seen bedbugs, thought that it was from cockroaches, but discussed with him that they are not known to do that. Possible bedbugs. Requesting daily bath, discussed with nursing staff room will benefit from he fumigation. Requesting case management consultation. (5) Rhabdomyolysis: Repeat CK, with improvement. Moderate rhabdomyolysis. Possibly after a fall and staying on the floor for some time at home with generalized weakness. Possibly with dehydration, hypotension. (6) Smoker: Current smoker, discussed smoking cessation for 5 minutes. He states he knows he should quit. He is agreeable to nicotine patch, will add lozenges as needed as well. (7) Hyperkalemia: Received Kayexalate. Started on dialysis. Hypokalemia improved. (8) Abnormal urinalysis: (9) CHF (congestive heart failure): Recently diagnosed with CHF, hold Lasix for now. Assess TTE. Monitor CHECO. Monitor oxygenation previously with pleural effusions. NT-proBNP 11,333. TTE with low normal EF, mild LV global hypokinesis. Qualifiers: Heart failure chronicity: acute on chronic Heart failure type: combined systolic and diastolic Qualified Code(s): I50.43 - Acute on chronic combined systolic (congestive) and diastolic (congestive) heart failure (10) Chronic back pain: Qualifiers: Back pain location: low back pain Back pain laterality: bilateral S ciatica presence: without sciatica Qualified Code(s): M54.50 - Low back pain, unspecified; G89.29 - Other chronic pain Plan Difficulty coping after loss of his in 2012: Possible depression, started on bupropion by PCP. Will hold for now, consider resumption at lower dose, 75 mg. Decreasing functional capacity: With recent difficulties with ambulation, using walker, but had also required a wheelchair. Difficult social situation, some limited social support. Poor living conditions at home. Will request PT evaluation. Case management consultation. Attestations 2 Medical Necessity Statement*: Continue admission for assessment management of acute renal failure, fungal skin infection with secondary cellulitis, rhabdomyolysis. Diagnoses Acute renal failure, unspecified acute renal failure type N17.9 Acute renal failure type: unspecified Metabolic acidosis E87.20 Uremia N19 Skin infection L08.9 Rhabdomyolysis M62.82 Smoker F17.200 Hyperkalemia E87.5 Abnormal urinalysis R82.90 Acute on chronic combined systolic and diastolic congestive heart failure I50.43 Heart failure chronicity: acute on chronic Heart failure type: combined systolic and diastolic Chronic bilateral low back pain without sciatica M54.50; G89.29 Back pain location: low back pain Back pain laterality: bilateral Sciatica presence: without sciatica
--- NOTE | 2024-03-02 23:20 | PC.HD ---
Pt has new left femoral cath placed this am. Ports draw and flush easily, but once on machine AP quickly increased to the point of stopping blood pump incessantly, did not improve with repositioning pt and catheter, flushing, or reversing lines. Dr Joon garcia, said ok to try heparin but suspects it needs pulled back. Heparin loading dose given and cath ports flushed, machine set to recirculate x5 min. Once reconnected, AP again spiking. Blood returned, ports flushed, and LAUNDR[employer] ntmike. Dr Avila came and pulled cath back with improved draw flush, cath resecured and redressed. Thinks vessel is collapsing due to hypovolemia and suggested giving albumin or fluid to conteract the hypovolemia. Machine restrung and treatment restarted. Pressures much improved until pt got on bedpan, AP again spiking and stopping pump. Did not improve with repositioning or flushing lines. Lines reversed and pressures again improved until pt got off the bedpan and then AP increased and spiking again. Lines flushed and then un-reversed with improvement in pressures until pt started moving legs causing AP to increase and start spiking again. Unable to bring AP down with repositioning, manipulating catheter, or flushing lines. BFR decreased to 200 and with holding pannus up and applying slight traction to cath and frequently flushing the line, treatment was completed with net fluid gain (from frequent flushing of lines and from prime and rinse back x2)
[2024-03-03] VITALS (9 sets, daily range): BP systolic 90–171; BP diastolic 65–76; PULSE 68–89; RESP 16–19; TEMP 36.4–36.7; O2SAT 90–97
[2024-03-03] MEDS: piperacillin-tazobactam 3.375 GM in sodium chloride 0.9% (plus) 50 ML IV ×2 (01:37→12:50)
[2024-03-03] MEDS: linezolid premix 600 MG/300 ML PREMIX 300 MG IV ×2 (01:37→12:52)
[2024-03-03 05:56] LABS: Basophils % 0.1 %; Hematocrit 35.5 % (37-53); Lymphocytes # 0.6 10^3/uL (0.8-4.8); Lymphocytes % 3.4 %; Mean Corpuscular HGB Conc 32.7 g/dL (30-55); Mean Corpuscular Hemoglobin 27.2 pg (27-33); Mean Corpuscular Volume 83.1 fl (82-101); Mean Platelet Volume 9.9 fL (7.4-10.4); Monocytes # 0.9 10^3/uL (0.2-0.9); Monocytes % 4.8 %; Neutrophils # 16.41 10^3/uL (1.8-7.7); Neutrophils % 90.8 %; Nucleated Red Blood Cells % 0 %; Platelet Count 246 10^3/cmm (157-399); Red Blood Count 4.27 10^6/uL (3.85-5.65); Red Cell Distribution Width 17.2 % (12.1-15.1); White Blood Count 18.07 10^3/uL (3.29-11.43)
[2024-03-03 06:13] LABS: Alanine Aminotransferase 10 U/L (0-41); Albumin Level 2.8 g/dL (3.5-5.2); Alkaline Phosphatase 65 U/L (40-130); Anion Gap 24.3 (5-19); Aspartate Amino Transferase 20 U/L (0-40); Carbon Dioxide 24 mmol/L (22-29); Chloride 95 mmol/L (98-107); Globulin 3.4 g/dL (1.3-4.6); Glomerular Filtration Rate 5.1 mL/min (90-130); Glucose 126 mg/dL (65-115); Magnesium 1.7 mg/dL (1.7-2.3); Osmolality Calculated 317 mOsm/kg (285-295); Potassium 3.3 mmol/L (3.5-5.1); Sodium 140 mmol/L (136-145); Total Bilirubin 0.2 mg/dL (0.15-1.2); Total Protein 6.2 g/dL (6.6-8.7); Uric Acid 12.5 mg/dL (3.4-7.0)
[2024-03-03 06:27] LABS: Blood Urea Nitrogen 84 mg/dL (8-23); Calcium 5.6 mg/dL (8.5-10.5); Creatine Phosphokinase 1499 U/L (39-308); Creatinine Clr Calc Pharmacy 8.5651; Phosphorus 9.3 mg/dL (2.5-4.5)
[2024-03-03] MEDS: levothyroxine 50 mcg Tablet PO (06:39)
--- NOTE | 2024-03-03 08:11 | PC.HD ---
Unable to draw from arterial port of temporary HD catheter. Lines affixed in reverse configuration; machine pressures remain elevated. Unable to run trx at prescribed 300 blood flow rate. Currently at 225. Aids Social Worker aware.
--- NOTE | 2024-03-03 09:41 | PC.PT ---
Pt not available for PT this morning. Will check on him tomorrow AM.
[2024-03-03] MEDS: terbinafine 1% Cream 15 gm 1 APPLIC TOPICAL ×2 (12:55→17:50)
--- NOTE | 2024-03-03 15:18 | P.PN_ITS ---
Subjective 2 Subjective: getting hD Medications: Reviewed: Yes Vitals/I&O/Wt Last Vital Signs Temp 98.0 F 03/03/24 11:58 Pulse 70 03/03/24 11:58 Resp 18 03/03/24 11:58 BP 156/76 03/03/24 11:58 Pulse Ox 96 03/03/24 11:58 O2 Del Method Nasal Cannula 03/03/24 11:58 O2 Flow Rate 2 03/03/24 11:58 03/03/24 03/03/24 03/03/24 06:59 14:59 22:59 Intake Total 2530 / 3596 770 / 770 Output Total 747 / 1297 1350 / 1350 Balance 1783 / 2299 -580 / -580 Weight last 48 hrs Weight 104.5 kg Weight 106.458 kg Weight 106.458 kg Weight 102.467 kg Weight 98.43 kg Weight 98.43 kg Weight 97.976 kg Physical Exam 2 Narrative: Elderly man in bed lying down, overweight. Vital signs noted. Patient on nasal cannula oxygen. Skin multiple lesions all over diffusely. HEENT normocephalic/atraumatic. Neck is supple. Lungs good air movement. Heart regular Abdomen is soft positive bowel sounds. Extremities have edema. Neuro awake alert oriented x 2-3, moves all extremities but weak The patient was seen and examined using audiovisual technology this was a telehealth visit. The nurse examined the patient. Data 03/03/24 05:26 03/03/24 05:26 Micro: Microbiology 03/01/24 13:03 Blood Culture - Preliminary Blood NEGATIVE TO DATE 03/01/24 12:58 Blood Culture - Preliminary Blood NEGATIVE TO DATE A&P Assessment and plan (1) Acute renal failure: The patient is a 68-year-old gentleman history of COPD, CHF I do not have an echo, CVA [place] hydrocele. The patient has recently been started on Lasix and lisinopril along with bupropion. 1. Acute kidney injury -- patient had a normal creatinine on February 02, 2024. Patient CT scan without obstruction. Urinalysis reviewed is dark and cloudy 1+ protein trace glucose 1+ ketones 2+ blood 2+ leuk esterase 55-80 white cells. Etiology likely ATN vs prerenal azotemia. Q of TLS CK under 3000, is too low to cause such severe [place] pending serologies. Noticed baseline creatinine 0.9 --> 17 on admission BUN: cr ratio consistent with intrinsic renal disease. -currently on dialysis, HD today -I discussed in detail with the patient, the benefits and risks of hemodialysis. pt agreed to proceed. 3 Hypothyroidism please give levothyroxine consider IV. The patient consented to telehealth visit. The patient was seen and examined using A/V equipment. Patient was seen with the nurse. Qualifiers: Acute renal failure type: unspecified Qualified Code(s): N17.9 - Acute kidney failure, unspecified Plan See above. Attestations 2 Medical Necessity Statement*: per [facility] Coding Level of Care Code Acute Code for Chg Fwd Diagnoses Acute renal failure, unspecified acute renal failure type N17.9 Acute renal failure type: unspecified
--- NOTE | 2024-03-03 15:26 | PM.PN ---
Subjective Subjective: no new complaints Medications: Reviewed: Yes Vitals/I&O/Wt Last Vital Signs Temp 98.0 F 03/03/24 11:58 Pulse 70 03/03/24 11:58 Resp 18 03/03/24 11:58 BP 156/76 03/03/24 11:58 Pulse Ox 96 03/03/24 11:58 O2 Del Method Nasal Cannula 03/03/24 11:58 O2 Flow Rate 2 03/03/24 11:58 03/03/24 03/03/24 03/03/24 06:59 14:59 22:59 Intake Total 2530 / 3596 770 / 770 Output Total 747 / 1297 1350 / 1350 Balance 1783 / 2299 -580 / -580 Weight last 48 hrs Weight 104.5 kg Weight 106.458 kg Weight 106.458 kg Weight 102.467 kg Weight 98.43 kg Weight 98.43 kg Weight 97.976 kg Physical Exam Narrative: Elderly man in bed lying down, overweight. Vital signs noted. Patient on nasal cannula oxygen. Skin multiple lesions all over diffusely. HEENT normocephalic/atraumatic. Neck is supple. Lungs good air movement. Heart regular Abdomen is soft positive bowel sounds. Extremities have edema. Neuro awake alert oriented x 2-3, moves all extremities but weak The patient was seen and examined using audiovisual technology this was a telehealth visit. The nurse examined the patient. Data 03/04/24 04:45 03/04/24 04:45 Micro: Microbiology 03/01/24 13:03 Blood Culture - Preliminary Blood NEGATIVE TO DATE 03/01/24 12:58 Blood Culture - Preliminary Blood NEGATIVE TO DATE A&P Assessment and plan (1) Acute renal failure: The patient is a 68-year-old gentleman history of COPD, CHF I do not have an echo, CVA [place] hydrocele. The patient has recently been started on Lasix and lisinopril along with bupropion. 1. Acute kidney injury -- patient had a normal creatinine on February 02, 2024. Patient CT scan without obstruction. Urinalysis reviewed is dark and cloudy 1+ protein trace glucose 1+ ketones 2+ blood 2+ leuk esterase 55-80 white cells. Etiology likely ATN vs prerenal azotemia. Q of TLS CK under 3000, is too low to cause such severe [place] pending serologies. Noticed baseline creatinine 0.9 --> 17 on admission BUN: cr ratio consistent with intrinsic renal disease. -currently on dialysis, HD done yesterday -I discussed in detail with the patient, the benefits and risks of hemodialysis. pt agreed to proceed. 3 Hypothyroidism please give levothyroxine consider IV. The patient consented to telehealth visit. The patient was seen and examined using A/V equipment. Patient was seen with the nurse. Qualifiers: Acute renal failure type: unspecified Qualified Code(s): N17.9 - Acute kidney failure, unspecified Plan See above. Attestations Medical Necessity Statement*: per [facility] Coding Level of Care Code Acute Code for Chg Fwd Diagnoses Acute renal failure, unspecified acute renal failure type N17.9 Acute renal failure type: unspecified
[2024-03-03] MEDS: calcium carbonate 500 mg Chew Tablet 1250 MG PO ×2 (16:34→20:39)
[2024-03-03] MEDS: nicotine 21 mg Patch 1 PATCH TRANSDERMA (17:49)
--- NOTE | 2024-03-03 20:30 | P.PN_ITS ---
Subjective 2 Subjective: He is sleeping, but wakes up to voice. Reports that he is overall doing better. He denies pain. Tells me there are plans for more dialysis today. Vitals/I&O/Wt Last Vital Signs Temp 97.6 F 03/03/24 19:41 Pulse 68 03/03/24 19:41 Resp 18 03/03/24 19:41 BP 123/70 03/03/24 19:41 Pulse Ox 97 03/03/24 19:41 O2 Del Method Room Air 03/03/24 19:41 O2 Flow Rate 2 03/03/24 11:58 03/03/24 03/03/24 03/03/24 06:59 14:59 22:59 Intake Total 2530 / 3596 770 / 770 50 / 820 Output Total 747 / 1297 1350 / 1350 800 / 2150 Balance 1783 / 2299 -580 / -580 -750 / -1330 Weight last 48 hrs Weight 104.5 kg Weight 106.458 kg Weight 106.458 kg Weight 102.467 kg Weight 98.43 kg Weight 98.43 kg Physical Exam 2 Const: COMMON NORMALS: patient oriented x3 and alert GENERAL APPEARANCE: c ooperative ORIENTATION/CONSCIOUSNESS: Yes awake HENMT: COMMON NORMALS: oropharynx normal Neck/C-Spine: COMMON NORMALS: no JVD Resp: COMMON NORMALS: normal respiratory effort and clear to auscultation bilaterally AUSCULTATION: clear to auscultation bilaterally Cardio: COMMON NORMALS: no JVD, regular rhythm, S1 normal heart sound present, S2 normal heart sound present and No murmurs present (Cardio) RHYTHM: regular rhythm HEART SOUNDS: S1 normal heart sound present and S2 normal heart sound present GI: COMMON NORMALS: Normal to inspection, nondistended, normoactive bowel sounds present, Soft to palpation and non-tender PALPATION: Yes Soft to palpation Extremity: COMMON NORMALS: no joint enlargement and no pedal edema Neuro: COMMON NORMALS: patient oriented x3 and moves all extremities S ENSORIUM/ORIENTATION: Yes alert Skin: LESIONS: lesion noted (Multiple small lesions/tiny ulcerations throughout the body, worse on LE) RASHES: rashes noted (Slight improvement in armpits, groin, under pannus rash) OTHER: No blisters or bullae. Some ulcerations without confluence. Data 03/03/24 05:26 03/03/24 05:26 A&P Assessment and plan (1) Acute renal failure: Reviewed vitals, CBC, CMP, phosphorus, magnesium, CK, nephrology note. He tells me there are plans for additional dialysis today. Reassess renal function, monitor intake and output. Pending reassessment of any possible return of renal function, consideration of need for continued outpatient hemodialysis. Still with severe metabolic disturbances, including BUN 84, creatinine 10.2, anion gap 24.3, potassium 3.3, phosphorus 9.3, calcium 5.6. CK 1499. CK is improving. Monitor for risk of hypotension, electrolyte disturbance with hemodialysis. Acute renal failure, states has not urinated for several days. Recently diagnosed with CHF. Reviewed echocardiogram, low normal EF, 50%, grade 1 diastolic function, no obvious RWMA. Mildly globally hypokinetic LV. Was hypotensive on presentation, on Lasix, recently also started on lisinopril. Hold medications for now. He is receiving fluid resuscitation currently. At risk of fluid overload, had pleural effusions on CTA back on 02/01. No PE. Qualifiers: Acute renal failure type: unspecified Qualified Code(s): N17.9 - Acute kidney failure, unspecified (2) Metabolic acidosis: Gradually improving, bicarb up to 24. Still has anion gap 24.3. Anion gap metabolic acidosis as above. Lactic acidosis, 2.9-1.8. Reassess chemistry. (3) Uremia: Started on hemodialysis. Possible uremia, diffusely pruritic, although suspicion of bedbugs as well. BUN is 76. Appreciate nephrology assessment, he is having short-term reevaluation with consideration of need for urgent dialysis. (4) Skin infection: Some improvement in cellulitis areas under armpits, skin folds. Continue IV antibiotic coverage. Continue topical antifungal. Reassess CBC, monitor for risk of cytopenias with linezolid. Tinea corporis with secondary bacterial cellulitis. Hypotension with improvement. Additionally diffuse ulcerated rash, he states after insect bites at home, has not seen bedbugs, thought that it was from cockroaches, but discussed with him that they are not known to do that. Possible bedbugs. Requesting daily bath, discussed with nursing staff room will benefit from he fumigation. Requesting case management consultation. (5) Rhabdomyolysis: Repeat CK, with improvement. Moderate rhabdomyolysis. Possibly after a fall and staying on the floor for some time at home with generalized weakness. Possibly with dehydration, hypotension. (6) Smoker: Current smoker, discussed smoking cessation for 5 minutes. He states he knows he should quit. He is agreeable to nicotine patch, will add lozenges as needed as well. (7) Hyperkalemia: Received Kayexalate. Started on dialysis. Hypokalemia improved. (8) Abnormal urinalysis: (9) CHF (congestive heart failure): Recently diagnosed with CHF, hold Lasix for now. Assess TTE. Monitor CHECO. Monitor oxygenation previously with pleural effusions. NT-proBNP 11,333. TTE with low normal EF, mild LV global hypokinesis. Qualifiers: Heart failure chronicity: acute on chronic Heart failure type: combined systolic and diastolic Qualified Code(s): I50.43 - Acute on chronic combined systolic (congestive) and diastolic (congestive) heart failure (10) Chronic back pain: Qualifiers: Back pain location: low back pain Back pain laterality: bilateral S ciatica presence: without sciatica Qualified Code(s): M54.50 - Low back pain, unspecified; G89.29 - Other chronic pain Plan Difficulty coping after loss of his in 2012: Possible depression, started on bupropion by PCP. Will hold for now, consider resumption at lower dose, 75 mg. Decreasing functional capacity: With recent difficulties with ambulation, using walker, but had also required a wheelchair. Difficult social situation, some limited social support. Poor living conditions at home. PT. Case management consultation. Attestations 2 Medical Necessity Statement*: Continue admission for assessment management of acute renal failure with multiple severe metabolic derangements, fungal skin infection with secondary cellulitis, rhabdomyolysis. and High MDM includes number and complexity of problems actively addressed during encounter and described risk of complication, morbidity or mortality of management as documented Diagnoses Acute renal failure, unspecified acute renal failure type N17.9 Acute renal failure type: unspecified Metabolic acidosis E87.20 Uremia N19 Skin infection L08.9 Rhabdomyolysis M62.82 Smoker F17.200 Hyperkalemia E87.5 Abnormal urinalysis R82.90 Acute on chronic combined systolic and diastolic congestive heart failure I50.43 Heart failure chronicity: acute on chronic Heart failure type: combined systolic and diastolic Chronic bilateral low back pain without sciatica M54.50; G89.29 Back pain location: low back pain Back pain laterality: bilateral Sciatica presence: without sciatica
[2024-03-04] VITALS (7 sets, daily range): BP systolic 87–146; BP diastolic 53–91; PULSE 66–87; RESP 16–18; TEMP 36.4–36.9; O2SAT 94–99
[2024-03-04] MEDS: piperacillin-tazobactam 3.375 GM in sodium chloride 0.9% (plus) 50 ML IV ×2 (01:07→14:51)
[2024-03-04] MEDS: linezolid premix 600 MG/300 ML PREMIX 300 MG IV ×2 (01:10→14:50)
[2024-03-04] MEDS: levothyroxine 50 mcg Tablet PO (05:44)
[2024-03-04 05:57] LABS: Basophils % 0.2 %; Eosinophils % 0.2 %; Hematocrit 39.1 % (37-53); Lymphocytes # 1.3 10^3/uL (0.8-4.8); Lymphocytes % 10.3 %; Mean Corpuscular Hemoglobin 27.5 pg (27-33); Mean Corpuscular Volume 85.9 fl (82-101); Mean Platelet Volume 10.3 fL (7.4-10.4); Monocytes # 0.9 10^3/uL (0.2-0.9); Monocytes % 6.6 %; Neutrophils # 10.62 10^3/uL (1.8-7.7); Neutrophils % 81.9 %; Nucleated Red Blood Cells % 0 %; Platelet Count 241 10^3/cmm (157-399); Red Blood Count 4.55 10^6/uL (3.85-5.65); White Blood Count 12.98 10^3/uL (3.29-11.43)
[2024-03-04 06:18] LABS: Alanine Aminotransferase 10 U/L (0-41); Albumin Level 2.5 g/dL (3.5-5.2); Alkaline Phosphatase 59 U/L (40-130); Blood Urea Nitrogen 63 mg/dL (8-23); Calcium 6.4 mg/dL (8.5-10.5); Carbon Dioxide 23 mmol/L (22-29); Chloride 97 mmol/L (98-107); Creatinine Clr Calc Pharmacy 14.4266; Globulin 3.7 g/dL (1.3-4.6); Glomerular Filtration Rate 9.5 mL/min (90-130); Glucose 86 mg/dL (65-115); Magnesium 1.4 mg/dL (1.7-2.3); Osmolality Calculated 301 mOsm/kg (285-295); Phosphorus 5.4 mg/dL (2.5-4.5); Sodium 137 mmol/L (136-145); Total Bilirubin 0.2 mg/dL (0.15-1.2); Total Protein 6.2 g/dL (6.6-8.7); Uric Acid 9.6 mg/dL (3.4-7.0)
[2024-03-04 06:22] LABS: Anion Gap 20.2 (5-19); Aspartate Amino Transferase 21 U/L (0-40); Potassium 3.2 mmol/L (3.5-5.1)
[2024-03-04 06:31] LABS: Creatine Phosphokinase 597 U/L (39-308)
[2024-03-04] MEDS: terbinafine 1% Cream 15 gm 1 APPLIC TOPICAL ×2 (08:37→17:05)
[2024-03-04] MEDS: calcium carbonate 500 mg Chew Tablet 1250 MG PO ×3 (08:37→20:23)
--- NOTE | 2024-03-04 09:49 | PC.CHAP ---
Pastoral Care Encounter/Spiritual Assessment Type of Contact [] Declined rfid engineer visit [] Patient/Family/Request visit [] Outpatient visit [] Follow-up visit [] Physician referral [] Code/Alert [x] Routine visit [] Staff referral [] Actively dying [] Patient sleeping [] Family support [] [] Out of room [] Palliative care [] [] Receiving care in room [] Pre-surgical visit [] Trauma [] Long length of stay [] ICU visit [] Other: Relational/Emotional Strength [x] Patient feels connected with others/family/visitors/staff [] Distress [] Loneliness/isolation [] Abandonment Spirituality of Patient [x] Person of Eva [] Attends Oriental Orthodox of their Eva [x] Believes in Prayer [] Reads Bible or Sabianism materials [] There are Spiritual issues to be addressed Personal Care Service Provider Interventions [x] Prayer [x] Active listening [] Non-anxious presence [x] Spiritual/emotional support [] Crisis/trauma care [] Spiritual counseling [] Bereavement support [] Provided bereavement packet [] Provided Bible/devotional materials [] Provided toy/stuffed animal, coloring book to patient or family member [] Provided Communion [] Anointing/[place] [] Salvation [x] Completed spiritual assessment [] Other: Impact on Illness or Injury [] Angry [] Fearful [] Anxious [] Often cries [] Exhaustion [] Unable to work [] Unable to attend adventist [] Unable to walk/stand [] Unable to read [] Unable to drive [] Unable to eat/drink [] Unable to sleep [] Unable to be with family [] Patient intubated [] Other: Summary Time spent with patient 5 min
--- NOTE | 2024-03-04 10:50 | PC.SOCIAL ---
IMM Updated Updated pt on IMM. No questions voiced. Provided pt a copy. Initialed, dated, & timed a copy & placed in chart.
[2024-03-04] MEDS: magnesium sulfate premix 2 GM/50 ML PIGGYBACK IV (11:51)
[2024-03-04] MEDS: potassium chloride ER 20 mEq Tablet PO (11:51)
[2024-03-04 16:44] LABS: Anti-Nuclear Antibody Screen NEGATIVE (NEGATIVE)
[2024-03-04] MEDS: nicotine 21 mg Patch 1 PATCH TRANSDERMA (17:04)
--- NOTE | 2024-03-04 19:30 | P.PN_ITS ---
Subjective 2 Subjective: no new c/o Medications: Reviewed: Yes Vitals/I&O/Wt Last Vital Signs Temp 97.8 F 03/04/24 15:30 Pulse 66 03/04/24 15:30 Resp 16 03/04/24 15:30 BP 146/69 03/04/24 15:30 Pulse Ox 98 03/04/24 15:30 O2 Del Method Room Air 03/04/24 15:30 O2 Flow Rate 2 03/04/24 11:48 03/04/24 03/04/24 03/04/24 06:59 14:59 22:59 Intake Total 950 / 2070 236 / 236 586 / 822 Output Total 1000 / 3550 1100 / 1100 Balance -50 / -1480 -864 / -864 586 / -278 Weight last 48 hrs Weight 104.5 kg Weight 104.5 kg Weight 104.5 kg Weight 106.458 kg Weight 106.458 kg Weight 102.467 kg Physical Exam 2 Narrative: Elderly man in bed lying down, overweight. Vital signs noted. Patient on nasal cannula oxygen. Skin multiple lesions all over diffusely. HEENT normocephalic/atraumatic. Neck is supple. Lungs good air movement. Heart regular Abdomen is soft positive bowel sounds. Extremities have edema. Neuro awake alert oriented x 2-3, moves all extremities but weak The patient was seen and examined using audiovisual technology this was a telehealth visit. The nurse examined the patient. Data 03/04/24 04:45 03/04/24 04:45 A&P Assessment and plan (1) Acute renal failure: The patient is a 68-year-old gentleman history of COPD, CHF I do not have an echo, CVA [place] hydrocele. The patient has recently been started on Lasix and lisinopril along with bupropion. 1. Acute kidney injury -- patient had a normal creatinine on February 02, 2024. Patient CT scan without obstruction. Urinalysis reviewed is dark and cloudy 1+ protein trace glucose 1+ ketones 2+ blood 2+ leuk esterase 55-80 white cells. Etiology likely ATN vs prerenal azotemia. Q of TLS CK under 3000, is too low to cause such severe ADELA pending serologies. Noticed baseline creatinine 0.9 --> 17 on admission BUN: cr ratio consistent with intrinsic renal disease. -currently on dialysis, HD done yesterday - hold off on HD over weekend and await for recovery -I discussed in detail with the patient, the benefits and risks of hemodialysis. pt agreed to proceed. 3 Hypothyroidism please give levothyroxine consider IV. The patient consented to telehealth visit. The patient was seen and examined using A/V equipment. Patient was seen with the nurse. Qualifiers: Acute renal failure type: unspecified Qualified Code(s): N17.9 - Acute kidney failure, unspecified Plan See above. Attestations 2 Medical Necessity Statement*: per melvin Coding Level of Care Code Acute Code for Chg Fwd Diagnoses Acute renal failure, unspecified acute renal failure type N17.9 Acute renal failure type: unspecified
--- NOTE | 2024-03-04 19:58 | P.PN_ITS ---
Subjective 2 Subjective: She is overall feeling better. Rash is showing some gradual improvement but still there and bothersome. He is having a loose stool. Vitals/I&O/Wt Last Vital Signs Temp 97.8 F 03/04/24 15:30 Pulse 66 03/04/24 15:30 Resp 16 03/04/24 15:30 BP 146/69 03/04/24 15:30 Pulse Ox 98 03/04/24 15:30 O2 Del Method Room Air 03/04/24 15:30 O2 Flow Rate 2 03/04/24 11:48 03/04/24 03/04/24 03/04/24 06:59 14:59 22:59 Intake Total 950 / 2070 236 / 236 636 / 872 Output Total 1000 / 3550 1100 / 1100 Balance -50 / -1480 -864 / -864 636 / -228 Weight last 48 hrs Weight 104.5 kg Weight 104.5 kg Weight 104.5 kg Weight 106.458 kg Weight 106.458 kg Weight 102.467 kg Physical Exam 2 Narrative: Accompanied by his friend and advocate. Const: COMMON NORMALS: patient oriented x3 and alert GENERAL APPEARANCE: c ooperative ORIENTATION/CONSCIOUSNESS: Yes awake HENMT: COMMON NORMALS: oropharynx normal Neck/C-Spine: COMMON NORMALS: no JVD Resp: COMMON NORMALS: normal respiratory effort and clear to auscultation bilaterally AUSCULTATION: clear to auscultation bilaterally Cardio: COMMON NORMALS: no JVD, regular rhythm, S1 normal heart sound present, S2 normal heart sound present and No murmurs present (Cardio) RHYTHM: regular rhythm HEART SOUNDS: S1 normal heart sound present and S2 normal heart sound present GI: COMMON NORMALS: Normal to inspection, nondistended, normoactive bowel sounds present, Soft to palpation and non-tender PALPATION: Yes Soft to palpation Extremity: COMMON NORMALS: no joint enlargement and no pedal edema Neuro: COMMON NORMALS: patient oriented x3 and moves all extremities S ENSORIUM/ORIENTATION: Yes alert Skin: LESIONS: lesion noted (Multiple small lesions/tiny ulcerations throughout the body, worse on LE) RASHES: rashes noted (Slight improvement in armpits, groin, under pannus rash) OTHER: No blisters or bullae. Some ulcerations without confluence. Data 03/04/24 04:45 03/04/24 04:45 A&P Assessment and plan (1) Acute renal failure: Reviewed vitals, nephrology note, discussed with logistics project manager, reviewed sodium, potassium, chloride, anion gap, bicarb, BUN, creatinine, phosphorus, magnesium. Replace hypomagnesemia, hypokalemia. Reviewed CK, improving. Nephrology holding off on dialysis today. Reassessing kidney function. Consideration of additional dialysis tomorrow. He is making some urine. This management is working on discharge to SNF. Monitor for risk of hypotension, electrolyte disturbance with hemodialysis. Acute renal failure, states has not urinated for several days. Recently diagnosed with CHF. Reviewed echocardiogram, low normal EF, 50%, grade 1 diastolic function, no obvious RWMA. Mildly globally hypokinetic LV. Was hypotensive on presentation, on Lasix, recently also started on lisinopril. Hold medications for now. He is receiving fluid resuscitation currently. At risk of fluid overload, had pleural effusions on CTA back on 02/01. No PE. Qualifiers: Acute renal failure type: unspecified Qualified Code(s): N17.9 - Acute kidney failure, unspecified (2) Metabolic acidosis: Improving, but still present, bicarb is up to 23, but anion gap still at 20.2. (3) Uremia: Started on hemodialysis. Showing gradual improvement. BUN is down to 63. Pleuritic symptoms with improvement. Subjectively he is feeling better. Possible uremia, diffusely pruritic, although suspicion of bedbugs as well. Appreciate nephrology assessment, he is having short-term reevaluation with consideration of need for urgent dialysis. (4) Skin infection: Some improvement in cellulitis areas under armpits, skin folds. Gradually improving. Continue antibiotic coverage, topical antifungal. Continue IV antibiotic coverage. Continue topical antifungal. Reassess CBC, monitor for risk of cytopenias with linezolid. Tinea corporis with secondary bacterial cellulitis. Hypotension with improvement. Additionally diffuse ulcerated rash, he states after insect bites at home, has not seen bedbugs, thought that it was from cockroaches, but discussed with him that they are not known to do that. Possible bedbugs. Requesting daily bath, discussed with nursing staff room will benefit from he fumigation. Requesting case management consultation. (5) Rhabdomyolysis: Repeat CK improving. Moderate rhabdomyolysis. Possibly after a fall and staying on the floor for some time at home with generalized weakness. Possibly with dehydration, hypotension. (6) Smoker: Current smoker, discussed smoking cessation for 5 minutes. He states he knows he should quit. He is agreeable to nicotine patch, will add lozenges as needed as well. (7) Hyperkalemia: Received Kayexalate. Started on dialysis. Hypokalemia improved. (8) Abnormal urinalysis: (9) CHF (congestive heart failure): Holding off on additional dialysis today for now, reassess renal function, consideration of additional dialysis tomorrow. Recently diagnosed with CHF, hold Lasix for now. Assess TTE. Monitor CHCEO. Monitor oxygenation previously with pleural effusions. NT-proBNP 11,333. TTE with low normal EF, mild LV global hypokinesis. Qualifiers: Heart failure chronicity: acute on chronic Heart failure type: combined systolic and diastolic Qualified Code(s): I50.43 - Acute on chronic combined systolic (congestive) and diastolic (congestive) heart failure (10) Chronic back pain: Qualifiers: Back pain location: low back pain Back pain laterality: bilateral S ciatica presence: without sciatica Qualified Code(s): M54.50 - Low back pain, unspecified; G89.29 - Other chronic pain Plan Difficulty coping after loss of his in 2012: Possible depression, started on bupropion by PCP. Will hold for now, consider resumption at lower dose, 75 mg. Decreasing functional capacity: With recent difficulties with ambulation, using walker, but had also required a wheelchair. Difficult social situation, some limited social support. Poor living conditions at home. PT. Case management consultation. Attestations 2 Medical Necessity Statement*: Continue admission for assessment management of acute renal failure with multiple severe metabolic derangements, fungal skin infection with secondary cellulitis, rhabdomyolysis. and High MDM includes amount and/or complexity of data reviewed/ordered [ resulted lab(s)/test(s), ordered lab(s)/test(s) and other healthcare professional discussion] as documented Diagnoses Acute renal failure, unspecified acute renal failure type N17.9 Acute renal failure type: unspecified Metabolic acidosis E87.20 Uremia N19 Skin infection L08.9 Rhabdomyolysis M62.82 Smoker F17.200 Hyperkalemia E87.5 Abnormal urinalysis R82.90 Acute on chronic combined systolic and diastolic congestive heart failure I50.43 Heart failure chronicity: acute on chronic Heart failure type: combined systolic and diastolic Chronic bilateral low back pain without sciatica M54.50; G89.29 Back pain location: low back pain Back pain laterality: bilateral Sciatica presence: without sciatica
[2024-03-05] VITALS (7 sets, daily range): BP systolic 115–158; BP diastolic 58–87; PULSE 67–103; RESP 15–18; TEMP 36.5–36.8; O2SAT 94–99
[2024-03-05] MEDS: linezolid premix 600 MG/300 ML PREMIX 30 MG IV (01:07)
[2024-03-05] MEDS: acetaminophen 325 mg Tablet 650 MG PO (01:43)
[2024-03-05] MEDS: piperacillin-tazobactam 3.375 GM in sodium chloride 0.9% (plus) 50 ML IV ×2 (02:31→13:08)
[2024-03-05] MEDS: levothyroxine 50 mcg Tablet PO (06:08)
[2024-03-05 06:12] LABS: Basophils % 0.2 %; Eosinophils # 0.2 10^3/uL (0.0-0.8); Eosinophils % 1.7 %; Lymphocytes # 1.5 10^3/uL (0.8-4.8); Lymphocytes % 11.6 %; Mean Corpuscular HGB Conc 31.5 g/dL (30-55); Mean Corpuscular Hemoglobin 26.8 pg (27-33); Mean Corpuscular Volume 85.1 fl (82-101); Mean Platelet Volume 10.2 fL (7.4-10.4); Monocytes # 0.7 10^3/uL (0.2-0.9); Monocytes % 5.1 %; Neutrophils # 10.42 10^3/uL (1.8-7.7); Neutrophils % 80.6 %; Nucleated Red Blood Cells % 0 %; Platelet Count 220 10^3/cmm (157-399); Red Cell Distribution Width 16.6 % (12.1-15.1); White Blood Count 12.92 10^3/uL (3.29-11.43)
[2024-03-05 06:30] LABS: Alanine Aminotransferase 12 U/L (0-41); Alkaline Phosphatase 56 U/L (40-130); Anion Gap 17.1 (5-19); Aspartate Amino Transferase 17 U/L (0-40); Blood Urea Nitrogen 58 mg/dL (8-23); Calcium 6.9 mg/dL (8.5-10.5); Carbon Dioxide 26 mmol/L (22-29); Chloride 98 mmol/L (98-107); Globulin 3.5 g/dL (1.3-4.6); Glucose 94 mg/dL (65-115); Magnesium 1.4 mg/dL (1.7-2.3); Osmolality Calculated 302 mOsm/kg (285-295); Phosphorus 3.6 mg/dL (2.5-4.5); Potassium 3.1 mmol/L (3.5-5.1); Sodium 138 mmol/L (136-145); Total Bilirubin 0.2 mg/dL (0.15-1.2); Total Protein 6.5 g/dL (6.6-8.7)
--- NOTE | 2024-03-05 06:41 | P.PN_ITS ---
Subjective 2 Subjective: no new c/o Medications: Reviewed: Yes Vitals/I&O/Wt Last Vital Signs Temp 98.2 F 03/05/24 04:00 Pulse 71 03/05/24 04:00 Resp 18 03/05/24 04:00 BP 115/61 03/05/24 04:00 Pulse Ox 94 03/05/24 04:00 O2 Del Method Nasal Cannula 03/05/24 04:00 O2 Flow Rate 2 03/04/24 11:48 03/04/24 03/04/24 03/05/24 14:59 22:59 06:59 Intake Total 236 / 236 636 / 872 300 / 1172 Output Total 1100 / 1100 1500 / 2600 1000 / 3600 Balance -864 / -864 -864 / -1728 -700 / -2428 Weight last 48 hrs Weight 102.965 kg Weight 102.965 kg Weight 104.5 kg Weight 104.5 kg Weight 104.5 kg Physical Exam 2 Narrative: Elderly man in bed lying down, overweight. Vital signs noted. Patient on nasal cannula oxygen. Skin multiple lesions all over diffusely. HEENT normocephalic/atraumatic. Neck is supple. Lungs good air movement. Heart regular Abdomen is soft positive bowel sounds. Extremities have edema. Neuro awake alert oriented x 2-3, moves all extremities but weak The patient was seen and examined using audiovisual technology this was a telehealth visit. The nurse examined the patient. Data 03/05/24 05:07 03/05/24 05:07 A&P Assessment and plan (1) Acute renal failure: The patient is a 68-year-old gentleman history of COPD, CHF I do not have an echo, CVA [place] hydrocele. The patient has recently been started on Lasix and lisinopril along with bupropion. 1. Acute kidney injury -- patient had a normal creatinine on February 02, 2024. Patient CT scan without obstruction. Urinalysis reviewed is dark and cloudy 1+ protein trace glucose 1+ ketones 2+ blood 2+ leuk esterase 55-80 white cells. Etiology likely ATN vs prerenal azotemia. Q of TLS CK under 3000, is too low to cause such severe ADELA pending serologies. Noticed baseline creatinine 0.9 --> 17 on admission BUN: cr ratio consistent with intrinsic renal disease. -started HD , last HD , uop picked up - hold off on HD over weekend and await for recovery , 3 Hypothyroidism please give levothyroxine consider IV. The patient consented to telehealth visit. The patient was seen and examined using A/V equipment. Patient was seen with the nurse. Qualifiers: Acute renal failure type: unspecified Qualified Code(s): N17.9 - Acute kidney failure, unspecified Plan See above. Attestations 2 Medical Necessity Statement*: per medicine Coding Level of Care Code Acute Code for Chg Fwd Diagnoses Acute renal failure, unspecified acute renal failure type N17.9 Acute renal failure type: unspecified
[2024-03-05] MEDS: calcium carbonate 500 mg Chew Tablet 1250 MG PO ×3 (09:16→21:03)
[2024-03-05] MEDS: terbinafine 1% Cream 15 gm 1 APPLIC TOPICAL ×2 (09:17→17:38)
--- NOTE | 2024-03-05 10:29 | P.PN_ITS ---
Subjective 2 Subjective: This is a 68-year-old male who is known to my service for need for emergent dialysis, and left femoral dialysis catheter was placed and has been used for dialysis. In addition he has a wound on the right arm. That I have been following. Patient is doing okay this morning no significant issues wound. Appears to be healing. Vitals/I&O/Wt Last Vital Signs Temp 97.9 F 03/05/24 07:25 Pulse 76 03/05/24 07:25 Resp 16 03/05/24 07:25 BP 139/69 03/05/24 07:25 Pulse Ox 97 03/05/24 07:25 O2 Del Method Nasal Cannula 03/05/24 07:25 O2 Flow Rate 1.5 03/05/24 07:25 03/04/24 03/05/24 03/05/24 22:59 06:59 14:59 Intake Total 636 / 872 300 / 1172 236 / 236 Output Total 1500 / 2600 1000 / 3600 Balance -864 / -1728 -700 / -2428 236 / 236 Weight last 48 hrs Weight 227 lb Weight 227 lb Weight 230 lb 6.129 oz Weight 230 lb 6.129 oz Weight 230 lb 6.129 oz Physical Exam 2 Extremity: NARRATIVE EXTREMITY EXAM: On the right arm. There is a 1 cm circular lesion on the involves the skin and part of the subcutaneous tissue, the base of the wound is clean is has been pack daily with wet-to-dry which appears to have a good impact. Data 03/05/24 05:07 03/05/24 05:07 A&P Assessment and plan (1) Acute renal failure: Qualifiers: Acute renal failure type: unspecified Qualified Code(s): N17.9 - Acute kidney failure, unspecified (2) Skin infection: Plan Patient is showing good progression from the general surgery standpoint. Right axilla wound does not require additional debridement at this time, patient can continue wet-to-dry dressing at home hoping for eventual healing of this defect. Regarding dialysis catheter is working well no significant issues. At this point general surgery will sign off and follow-up in the periphery, please reconsult as needed wound care can be continued by nursing staff. Attestations 2 Medical Necessity Statement*: Per medical team Coding Level of Care Code Acute Code for g Fwd Diagnoses Acute renal failure, unspecified acute renal failure type N17.9 Acute renal failure type: unspecified Skin infection L08.9
[2024-03-05] MEDS: potassium chloride ER 20 mEq Tablet 40 MEQ PO (11:13)
[2024-03-05] MEDS: magnesium sulfate premix 4 GM/100 ML PREMIX IV (11:13)
[2024-03-05] MEDS: linezolid premix 600 MG/300 ML PREMIX 300 MG IV (13:09)
[2024-03-05] MEDS: nicotine 21 mg Patch 1 PATCH TRANSDERMA (17:38)
--- NOTE | 2024-03-05 19:08 | P.PN_ITS ---
Subjective 2 Subjective: He is improving. Cellulitis is improving. 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 Vitals/I&O/Wt Last Vital Signs Temp 97.7 F 03/05/24 16:02 Pulse 75 03/05/24 16:02 Resp 15 03/05/24 16:02 BP 134/64 03/05/24 16:02 Pulse Ox 98 03/05/24 16:02 O2 Del Method Nasal Cannula 03/05/24 16:02 O2 Flow Rate 1.5 03/05/24 16:02 03/05/24 03/05/24 03/05/24 06:59 14:59 22:59 Intake Total 300 / 1172 922 / 922 286 / 1208 Output Total 1000 / 3600 1300 / 1300 Balance -700 / -2428 -378 / -378 286 / -92 Weight last 48 hrs Weight 102.965 kg Weight 102.965 kg Weight 104.5 kg Weight 104.5 kg Physical Exam 2 Const: COMMON NORMALS: patient oriented x3 and alert GENERAL APPEARANCE: c ooperative ORIENTATION/CONSCIOUSNESS: Yes awake HENMT: COMMON NORMALS: oropharynx normal Neck/C-Spine: COMMON NORMALS: no JVD Resp: COMMON NORMALS: normal respiratory effort and clear to auscultation bilaterally AUSCULTATION: clear to auscultation bilaterally Cardio: COMMON NORMALS: no JVD, regular rhythm, S1 normal heart sound present, S2 normal heart sound present and No murmurs present (Cardio) RHYTHM: regular rhythm HEART SOUNDS: S1 normal heart sound present and S2 normal heart sound present GI: COMMON NORMALS: Normal to inspection, nondistended, normoactive bowel sounds present, Soft to palpation and non-tender PALPATION: Yes Soft to palpation Extremity: COMMON NORMALS: no joint enlargement and no pedal edema Neuro: COMMON NORMALS: patient oriented x3 and moves all extremities S ENSORIUM/ORIENTATION: Yes alert Skin: LESIONS: lesion noted (Multiple small lesions/tiny ulcerations throughout the body, worse on LE) RASHES: rashes noted (Slight improvement in armpits, groin, under pannus rash) OTHER: No blisters or bullae. Some ulcerations without confluence. Data 03/05/24 05:07 03/05/24 05:07 A&P Assessment and plan (1) Acute renal failure: Reviewed vitals, INR, BMP, magnesium, phosphorus. Reviewed nephrology note. They are holding off on dialysis for now, reassessing functional recovery. Replace additional hypokalemia, hypomagnesemia, repeat chemistry, repeat magnesium. Phosphorus. Reviewed surgery note. This management is working on discharge to SNF. Monitor for risk of hypotension, electrolyte disturbance with hemodialysis. Acute renal failure, states has not urinated for several days. Recently diagnosed with CHF. Reviewed echocardiogram, low normal EF, 50%, grade 1 diastolic function, no obvious RWMA. Mildly globally hypokinetic LV. Was hypotensive on presentation, on Lasix, recently also started on lisinopril. Hold medications for now. He is receiving fluid resuscitation currently. At risk of fluid overload, had pleural effusions on CTA back on 02/01. No PE. Qualifiers: Acute renal failure type: unspecified Qualified Code(s): N17.9 - Acute kidney failure, unspecified (2) Metabolic acidosis: Improving, but still present, bicarb is up to 23, but anion gap still at 20.2. (3) Uremia: Started on hemodialysis. Showing gradual improvement. BUN is down to 63. Pleuritic symptoms with improvement. Subjectively he is feeling better. Possible uremia, diffusely pruritic, although suspicion of bedbugs as well. Appreciate nephrology assessment, he is having short-term reevaluation with consideration of need for urgent dialysis. (4) Skin infection: Some improvement in cellulitis areas under armpits, skin folds. Gradually improving. Continue antibiotic coverage, topical antifungal. Reviewed surgery note, the surgeon has reassessed his wound, no further debridement needed. Will switch from Zosyn to cephalexin with linezolid. Continue IV antibiotic coverage. Continue topical antifungal. Reassess CBC, monitor for risk of cytopenias with linezolid. Tinea corporis with secondary bacterial cellulitis. Hypotension with improvement. Additionally diffuse ulcerated rash, he states after insect bites at home, has not seen bedbugs, thought that it was from cockroaches, but discussed with him that they are not known to do that. Possible bedbugs. Requesting daily bath, discussed with nursing staff room will benefit from he fumigation. Requesting case management consultation. (5) Rhabdomyolysis: Repeat CK improving. Moderate rhabdomyolysis. Possibly after a fall and staying on the floor for some time at home with generalized weakness. Possibly with dehydration, hypotension. (6) Smoker: Current smoker, discussed smoking cessation for 5 minutes. He states he knows he should quit. He is agreeable to nicotine patch, will add lozenges as needed as well. (7) Hyperkalemia: Received Kayexalate. Started on dialysis. Hypokalemia improved. (8) Abnormal urinalysis: (9) CHF (congestive heart failure): Holding off on additional dialysis today for now, reassess renal function, consideration of additional dialysis tomorrow. Recently diagnosed with CHF, hold Lasix for now. Assess TTE. Monitor CHECO. Monitor oxygenation previously with pleural effusions. NT-proBNP 11,333. TTE with low normal EF, mild LV global hypokinesis. Qualifiers: Heart failure chronicity: acute on chronic Heart failure type: combined systolic and diastolic Qualified Code(s): I50.43 - Acute on chronic combined systolic (congestive) and diastolic (congestive) heart failure (10) Chronic back pain: Qualifiers: Back pain location: low back pain Back pain laterality: bilateral S ciatica presence: without sciatica Qualified Code(s): M54.50 - Low back pain, unspecified; G89.29 - Other chronic pain Plan Difficulty coping after loss of his in 2012: Possible depression, started on bupropion by PCP. Will hold for now, consider resumption at lower dose, 75 mg. Decreasing functional capacity: With recent difficulties with ambulation, using walker, but had also required a wheelchair. Difficult social situation, some limited social support. Poor living conditions at home. PT. Case management consultation. Attestations 2 Medical Necessity Statement*: Continue admission for assessment management of acute renal failure with multiple severe metabolic derangements, fungal skin infection with secondary cellulitis, rhabdomyolysis. Diagnoses Acute renal failure, unspecified acute renal failure type N17.9 Acute renal failure type: unspecified Metabolic acidosis E87.20 Uremia N19 Skin infection L08.9 Rhabdomyolysis M62.82 Smoker F17.200 Hyperkalemia E87.5 Abnormal urinalysis R82.90 Acute on chronic combined systolic and diastolic congestive heart failure I50.43 Heart failure chronicity: acute on chronic Heart failure type: combined systolic and diastolic Chronic bilateral low back pain without sciatica M54.50; G89.29 Back pain location: low back pain Back pain laterality: bilateral Sciatica presence: without sciatica
[2024-03-06] MEDS: linezolid premix 600 MG/300 ML PREMIX 300 MG IV ×2 (01:39→13:39)
[2024-03-06 03:36] LABS: Basophils % 0.3 %; Eosinophils # 0.3 10^3/uL (0.0-0.8); Eosinophils % 2.5 %; Lymphocytes # 1.2 10^3/uL (0.8-4.8); Lymphocytes % 9.5 %; Mean Corpuscular Hemoglobin 27.8 pg (27-33); Mean Platelet Volume 9.6 fL (7.4-10.4); Monocytes # 0.7 10^3/uL (0.2-0.9); Monocytes % 5.1 %; Neutrophils # 10.61 10^3/uL (1.8-7.7); Neutrophils % 81.9 %; Nucleated Red Blood Cells % 0 %; Platelet Count 193 10^3/cmm (157-399); Red Cell Distribution Width 16.8 % (12.1-15.1); White Blood Count 12.95 10^3/uL (3.29-11.43)
[2024-03-06] MEDS: acetaminophen 325 mg Tablet 650 MG PO (03:48)
[2024-03-06 03:57] VITALS: BP 110/72; PULSE 82; RESP 17; TEMP 36.7; O2SAT 99
[2024-03-06 03:57] LABS: Anion Gap 14.1 (5-19); Blood Urea Nitrogen 47 mg/dL (8-23); Calcium 7.9 mg/dL (8.5-10.5); Carbon Dioxide 29 mmol/L (22-29); Chloride 98 mmol/L (98-107); Creatinine Clr Calc Pharmacy 40.9183; Glomerular Filtration Rate 31.8 mL/min (90-130); Glucose 134 mg/dL (65-115); Magnesium 1.5 mg/dL (1.7-2.3); Osmolality Calculated 300 mOsm/kg (285-295); Phosphorus 2.8 mg/dL (2.5-4.5); Potassium 3.1 mmol/L (3.5-5.1); Sodium 138 mmol/L (136-145)
[2024-03-06] MEDS: levothyroxine 50 mcg Tablet PO (06:36)
[2024-03-06 07:41] VITALS: BP 114/67; PULSE 72; RESP 17; TEMP 36.6; O2SAT 97
[2024-03-06 07:44] VITALS: PULSE 72; O2SAT 97
--- NOTE | 2024-03-06 08:31 | PM.PN ---
Subjective Subjective: Patient feels better. Patient is urinating. Patient has no nausea vomiting diarrhea headaches. Edema is improved. Skin feels better. Medications: Reviewed: Yes Medication Review Details: Current Medications Acetaminophen (Acetaminophen 325 Mg Tablet) 650 mg PO Q6H PRN PRN Reason: Mild/Mod Pain Or Temp >/= 101 Last Admin: 03/06/24 03:48 Dose: 650 mg Calcium Carbonate (Calcium Carbonate 500 Mg Chew Tablet) 1,250 mg PO TID [facility] Last Admin: 03/05/24 21:03 Dose: 1,250 mg Cephalexin HCl (Cephalexin 500 Mg Capsule) 500 mg PO BID [facility]; Protocol Ergocalciferol (Ergocalciferol (Vitamin D2) 50,000 Unit Capsule) 50,000 unit PO Q7D [facility] Last Admin: 03/02/24 08:38 Dose: 50,000 unit Sodium Bicarbonate 150 meq/ (Dextrose) 1,150 mls @ 150 mls/hr IV .Q7H40M [facility] Last Infusion: 03/02/24 06:56 Dose: Infused Linezolid (Zyvox Premix) 600 mg in 300 mls @ 300 mls/hr IV Q12H [facility]; Protocol Last Infusion: 03/06/24 02:05 Dose: 0 mls/hr Sodium Chloride (Sodium Chloride 0.9%) 1,000 mls @ 0 mls/hr IV .Q0M PRN PRN Reason: hypotension or symptomatic Dextrose (D10w) 250 mls @ 1,000 mls/hr IV PRN PRN PRN Reason: HYPOGLYCEMIA Levothyroxine Sodium (Levothyroxine 50 Mcg Tablet) 50 mcg PO QAM [facility] Last Admin: 03/06/24 06:36 Dose: 50 mcg Nicotine (Nicotine 21 Mg Patch) 1 patch TRANSDERMA Q24H [facility] Last Admin: 03/05/24 17:38 Dose: 1 patch Nicotine Polacrilex (Nicotine 4 Mg Lozenge) 4 mg MUCOUS MEM Q4H PRN PRN Reason: NICOTINE CRAVINGS Ondansetron HCl (Ondansetron 2 Mg/Ml Sdv 2 Ml) 4 mg IVP Q8H PRN PRN Reason: vomiting, or N/V if npo Terbinafine HCl (Terbinafine 1% Cream 15 Gm) 1 applic TOPICAL BID [facility] Last Admin: 03/05/24 17:38 Dose: 1 applic Vitals/I&O/Wt Last Vital Signs Temp 97.8 F 03/06/24 07:41 Pulse 72 03/06/24 07:44 Resp 17 03/06/24 07:41 BP 114/67 03/06/24 07:41 Pulse Ox 97 03/06/24 07:44 O2 Del Method Nasal Cannula 03/06/24 07:44 O2 Flow Rate 2 03/06/24 07:44 03/05/24 03/06/24 03/06/24 22:59 06:59 14:59 Intake Total 286 / 1208 230 / 1438 Output Total 500 / 1800 Balance 286 / -92 -270 / -362 Weight last 48 hrs Weight 102.965 kg Weight 102.965 kg Physical Exam Narrative: Overweight man sitting up in no apparent distress. Vital signs noted. Patient on nasal cannula oxygen. Skin multiple lesions all over diffusely. HEENT normocephalic/atraumatic. Neck is supple. Lungs-bilateral expiratory wheezes. Heart regular Abdomen is soft positive bowel sounds. Extremities-improved edema. Patient has a femoral dialysis catheter Neuro awake alert oriented x 3. Strength improved. The patient was seen and examined using audiovisual technology this was a telehealth visit. The nurse examined the patient. Data 03/06/24 03:03 03/06/24 03:03 A&P Assessment and plan (1) Acute renal failure: The patient is a 68-year-old gentleman history of COPD, CHF I do not have an echo, CVA [place] hydrocele. The patient has recently been started on Lasix and lisinopril along with bupropion. 1. Acute kidney injury -- patient had a normal creatinine on February 02, 2024. Patient CT scan without obstruction. Urinalysis reviewed is dark and cloudy 1+ protein trace glucose 1+ ketones 2+ blood 2+ leuk esterase 55-80 white cells. Etiology likely ATN vs prerenal azotemia. Q of TLS CK under 3000, is too low to cause such severe ADELA pending serologies. Noticed baseline creatinine 0.9 --> 17 on admission Renal function is improved. Please remove dialysis catheter. Can keep Moore in overnight. 2. Replace electrolytes of magnesium and potassium are being lost due to post ADELA diuresis 3 Hypothyroidism please give levothyroxine 4. Encourage exercise. CK improving. Hemoglobin acceptable. Medications reviewed The patient consented to telehealth visit. The patient was seen and examined using A/V equipment. Patient was seen with the nurse. Qualifiers: Acute renal failure type: unspecified Qualified Code(s): N17.9 - Acute kidney failure, unspecified Plan See above. Attestations Medical Necessity Statement*: Remove dialysis catheter. Monitor urine output and correct chemistries with creatinine. Replace electrolytes. Time Spent in Patient Care: 16 - 35 minutes (>than 50% of time spent in counselling and/or direct pt care on unit). Coding Level of Care Code Acute Code for [facility] Fwd Diagnoses Acute renal failure, unspecified acute renal failure type N17.9 Acute renal failure type: unspecified
[2024-03-06] MEDS: cephALEXin 500 mg Capsule PO ×2 (09:45→17:50)
[2024-03-06] MEDS: calcium carbonate 500 mg Chew Tablet 1250 MG PO ×3 (09:45→20:53)
[2024-03-06] MEDS: magnesium sulfate premix 1 GM/100 ML PIGGYBACK IV (09:46)
[2024-03-06] MEDS: terbinafine 1% Cream 15 gm 1 APPLIC TOPICAL ×2 (09:52→17:52)
[2024-03-06] MEDS: potassium chloride ER 10 mEq Tablet 40 MEQ PO (10:27)
[2024-03-06 11:08] VITALS: BP 110/66; PULSE 64; RESP 17; TEMP 36.2; O2SAT 98
[2024-03-06 16:00] VITALS: BP 94/66; PULSE 83; RESP 17; TEMP 36.2; O2SAT 99
[2024-03-06] MEDS: nicotine 21 mg Patch 1 PATCH TRANSDERMA (17:48)
--- NOTE | 2024-03-06 19:35 | PC.NURSE ---
at approx. 1400, pts dialysis cath removed, pressure and pressure dressing applied
--- NOTE | 2024-03-06 19:40 | PC.NURSE ---
at approx 1415 entered pts room and pts dialysis cath site was bleeding, reinforced bandages and held pressure for approx. 40 minutes. pressure dressing applied. while nurse was cleaning room of supplies used, pts site started to bleed again. reinforced again and dr teixeira notified, held pressure for approx. 1hr. site cleaned and redressed with another pressure dressing, pts site has remainded and is c/d/i at the time of shift change at approx. 1915. noc rn and this nurse assessed site during bedside report and the site was c/d/i
[2024-03-06 19:59] VITALS: BP 95/68; PULSE 92; RESP 18; TEMP 36.6; O2SAT 100
--- NOTE | 2024-03-06 21:03 | P.PN_ITS ---
Subjective 2 Subjective: He reports he is feeling better. Denies any new complaints. Cellulitis has been slowly healing up. Vitals/I&O/Wt Last Vital Signs Temp 97.9 F 03/06/24 19:59 Pulse 92 03/06/24 19:59 Resp 18 03/06/24 19:59 BP 95/68 03/06/24 19:59 Pulse Ox 100 03/06/24 19:59 O2 Del Method Nasal Cannula 03/06/24 19:59 O2 Flow Rate 2 03/06/24 16:00 03/06/24 03/06/24 03/06/24 06:59 14:59 22:59 Intake Total 230 / 1438 580 / 580 540 / 1120 Output Total 500 / 1800 2000 / 2000 700 / 2700 Balance -270 / -362 -1420 / -1420 -160 / -1580 Weight last 48 hrs Weight 102.965 kg Weight 102.965 kg Physical Exam 2 Const: COMMON NORMALS: patient oriented x3 and alert GENERAL APPEARANCE: c ooperative ORIENTATION/CONSCIOUSNESS: Yes awake HENMT: COMMON NORMALS: oropharynx normal Neck/C-Spine: COMMON NORMALS: no JVD Resp: COMMON NORMALS: normal respiratory effort and clear to auscultation bilaterally AUSCULTATION: clear to auscultation bilaterally Cardio: COMMON NORMALS: no JVD, regular rhythm, S1 normal heart sound present, S2 normal heart sound present and No murmurs present (Cardio) RHYTHM: regular rhythm HEART SOUNDS: S1 normal heart sound present and S2 normal heart sound present GI: COMMON NORMALS: Normal to inspection, nondistended, normoactive bowel sounds present, Soft to palpation and non-tender PALPATION: Yes Soft to palpation Extremity: COMMON NORMALS: no joint enlargement and no pedal edema Neuro: COMMON NORMALS: patient oriented x3 and moves all extremities S ENSORIUM/ORIENTATION: Yes alert Skin: LESIONS: lesion noted (Multiple small lesions/tiny ulcerations throughout the body, worse on LE) RASHES: rashes noted (Slight improvement in armpits, groin, under pannus rash) OTHER: No blisters or bullae. Some ulcerations without confluence. Data 03/06/24 03:03 03/06/24 03:03 Micro: Microbiology 03/01/24 13:03 Blood Culture - Final Blood NO GROWTH AFTER 5 DAYS 03/01/24 12:58 Blood Culture - Final Blood NO GROWTH AFTER 5 DAYS A&P Assessment and plan (1) Acute renal failure: Reviewed vitals, CBC, potassium, bicarb, BUN, creatinine. Reviewed phosphorus, magnesium, nephrology note. Given replacement for hypokalemia, hypomagnesemia. Nephrology reassessing kidney function but he has been improving. Overall doing better. Producing urine. Creatinine down to 2.1. Per nephrology remove dialysis catheter. Removed. I came back to reassess him due to acute bleeding after the catheter, additional pressure had to be held, bleeding resolved. Repeat chemistry, blood counts requested. Case management is working on discharge to SNF. Would benefit from rehabilitation. Also with very limited social support. Monitor for risk of hypotension, electrolyte disturbance with hemodialysis. Acute renal failure, states has not urinated for several days. Recently diagnosed with CHF. Reviewed echocardiogram, low normal EF, 50%, grade 1 diastolic function, no obvious RWMA. Mildly globally hypokinetic LV. Was hypotensive on presentation, on Lasix, recently also started on lisinopril. Hold medications for now. He is receiving fluid resuscitation currently. At risk of fluid overload, had pleural effusions on CTA back on 02/01. No PE. Qualifiers: Acute renal failure type: unspecified Qualified Code(s): N17.9 - Acute kidney failure, unspecified (2) Metabolic acidosis: Resolved, but still present, bicarb is up to 23, but anion gap still at 20.2. (3) Uremia: Resolved after hemodialysis. (4) Skin infection: Cellulitis of armpits, groin secondary to tinea corporis. See history of MRSA, will stop linezolid. Continue cephalexin. Will request MRSA PCR. Continue antibiotic coverage, topical antifungal. Reviewed surgery note, the surgeon has reassessed his wound, no further debridement needed. Will switch from Zosyn to cephalexin with linezolid. Additionally diffuse ulcerated rash, he states after insect bites at home, has not seen bedbugs, thought that it was from cockroaches, but discussed with him that they are not known to do that. Possible bedbugs. Requesting daily bath, discussed with nursing staff room will benefit from he fumigation. Requesting case management consultation. (5) Rhabdomyolysis: Repeat CK improving. Moderate rhabdomyolysis. Possibly after a fall and staying on the floor for some time at home with generalized weakness. Possibly with dehydration, hypotension. (6) Smoker: Current smoker, discussed smoking cessation for 5 minutes. He states he knows he should quit. He is agreeable to nicotine patch, will add lozenges as needed as well. (7) Hyperkalemia: Resolved. Received Kayexalate. Started on dialysis. Hypokalemia improved. (8) Abnormal urinalysis: (9) CHF (congestive heart failure): Holding off on additional dialysis today for now, reassess renal function, consideration of additional dialysis tomorrow. Recently diagnosed with CHF, hold Lasix for now. Assess TTE. Monitor CHECO. Monitor oxygenation previously with pleural effusions. NT-proBNP 11,333. TTE with low normal EF, mild LV global hypokinesis. Qualifiers: Heart failure chronicity: acute on chronic Heart failure type: combined systolic and diastolic Qualified Code(s): I50.43 - Acute on chronic combined systolic (congestive) and diastolic (congestive) heart failure (10) Chronic back pain: Qualifiers: Back pain location: low back pain Back pain laterality: bilateral S ciatica presence: without sciatica Qualified Code(s): M54.50 - Low back pain, unspecified; G89.29 - Other chronic pain Plan Difficulty coping after loss of his in 2012: Possible depression, started on bupropion by PCP. Will hold for now, consider resumption at lower dose, 75 mg. Decreasing functional capacity: With recent difficulties with ambulation, using walker, but had also required a wheelchair. Difficult social situation, some limited social support. Poor living conditions at home. PT. Case management consultation. Attestations 2 Medical Necessity Statement*: Continue admission for reassessment of acute renal failure off hemodialysis with multiple severe metabolic derangements, fungal skin infection with secondary cellulitis, rhabdomyolysis. Diagnoses Acute renal failure, unspecified acute renal failure type N17.9 Acute renal failure type: unspecified Metabolic acidosis E87.20 Uremia N19 Skin infection L08.9 Rhabdomyolysis M62.82 Smoker F17.200 Hyperkalemia E87.5 Abnormal urinalysis R82.90 Acute on chronic combined systolic and diastolic congestive heart failure I50.43 Heart failure chronicity: acute on chronic Heart failure type: combined systolic and diastolic Chronic bilateral low back pain without sciatica M54.50; G89.29 Back pain location: low back pain Back pain laterality: bilateral Sciatica presence: without sciatica
[2024-03-07] VITALS: BP 115/80; PULSE 89; RESP 18; TEMP 36.8; O2SAT 97
[2024-03-07 04:00] VITALS: BP 136/73; PULSE 100; RESP 18; TEMP 36.6; O2SAT 98
[2024-03-07 05:25] LABS: Basophils # 0.1 10^3/uL (0.0-0.1); Basophils % 0.4 %; Eosinophils # 0.4 10^3/uL (0.0-0.8); Eosinophils % 3.1 %; Hematocrit 37.5 % (37-53); Lymphocytes # 1.5 10^3/uL (0.8-4.8); Lymphocytes % 10.7 %; Mean Corpuscular HGB Conc 31.5 g/dL (30-55); Mean Corpuscular Hemoglobin 27.7 pg (27-33); Mean Platelet Volume 9.9 fL (7.4-10.4); Monocytes # 0.7 10^3/uL (0.2-0.9); Monocytes % 5.3 %; Neutrophils % 80.1 %; Nucleated Red Blood Cells % 0 %; Platelet Count 181 10^3/cmm (157-399); Red Blood Count 4.26 10^6/uL (3.85-5.65); Red Cell Distribution Width 16.8 % (12.1-15.1); White Blood Count 13.87 10^3/uL (3.29-11.43)
[2024-03-07 05:44] LABS: Anion Gap 13.5 (5-19); Blood Urea Nitrogen 39 mg/dL (8-23); Calcium 8.2 mg/dL (8.5-10.5); Carbon Dioxide 29 mmol/L (22-29); Chloride 101 mmol/L (98-107); Glomerular Filtration Rate 37.9 mL/min (90-130); Glucose 98 mg/dL (65-115); Magnesium 1.2 mg/dL (1.7-2.3); Osmolality Calculated 299 mOsm/kg (285-295); Phosphorus 1.9 mg/dL (2.5-4.5); Potassium 3.5 mmol/L (3.5-5.1); Sodium 140 mmol/L (136-145)
[2024-03-07 05:45] LABS: Creatinine Clr Calc Pharmacy 47.6798
[2024-03-07] MEDS: levothyroxine 50 mcg Tablet PO (06:04)
[2024-03-07 07:52] VITALS: BP 107/69; PULSE 111; RESP 18; O2SAT 98
--- NOTE | 2024-03-07 08:29 | PM.PN ---
Subjective Subjective: He feels better. Still has ulceration and rashes in his axillary area and in his groin. Would like his Moore out. Denies nausea or vomiting. Denies diarrhea. Has some edema. Decreased shortness of breath. Medications: Reviewed: Yes Medication Review Details: Current Medications Acetaminophen (Acetaminophen 325 Mg Tablet) 650 mg PO Q6H PRN PRN Reason: Mild/Mod Pain Or Temp >/= 101 Last Admin: 03/06/24 03:48 Dose: 650 mg Calcium Carbonate (Calcium Carbonate 500 Mg Chew Tablet) 1,250 mg PO TID [facility] Last Admin: 03/06/24 20:53 Dose: 1,250 mg Cephalexin HCl (Cephalexin 500 Mg Capsule) 500 mg PO BID [facility] [place]; Protocol Last Admin: 03/06/24 17:50 Dose: 500 mg Ergocalciferol (Ergocalciferol (Vitamin D2) 50,000 Unit Capsule) 50,000 unit PO Q7D [facility] [place] Last Admin: 03/02/24 08:38 Dose: 50,000 unit Sodium Bicarbonate 150 meq/ (Dextrose) 1,150 mls @ 150 mls/hr IV .Q7H40M [facility] [place] Last Infusion: 03/02/24 06:56 Dose: Infused Sodium Chloride (Sodium Chloride 0.9%) 1,000 mls @ 0 mls/hr IV .Q0M PRN PRN Reason: hypotension or symptomatic Dextrose (D10w) 250 mls @ 1,000 mls/hr IV PRN PRN PRN Reason: HYPOGLYCEMIA Levothyroxine Sodium (Levothyroxine 50 Mcg Tablet) 50 mcg PO QAM [facility] [place] Last Admin: 03/07/24 06:04 Dose: 50 mcg Nicotine (Nicotine 21 Mg Patch) 1 patch TRANSDERMA Q24H [facility] [place] Last Admin: 03/06/24 17:48 Dose: 1 patch Nicotine Polacrilex (Nicotine 4 Mg Lozenge) 4 mg MUCOUS MEM Q4H PRN PRN Reason: NICOTINE CRAVINGS Ondansetron HCl (Ondansetron 2 Mg/Ml Sdv 2 Ml) 4 mg IVP Q8H PRN PRN Reason: vomiting, or N/V if npo Terbinafine HCl (Terbinafine 1% Cream 15 Gm) 1 applic TOPICAL BID [facility] [place] Last Admin: 03/06/24 17:52 Dose: 1 applic Vitals/I&O/Wt Last Vital Signs Temp 97.9 F 03/07/24 04:00 Pulse 111 H 03/07/24 07:52 Resp 18 03/07/24 07:52 BP 107/69 03/07/24 07:52 Pulse Ox 98 03/07/24 07:52 O2 Del Method Nasal Cannula 03/07/24 07:52 O2 Flow Rate 2 03/07/24 07:52 03/06/24 03/07/24 03/07/24 22:59 06:59 14:59 Intake Total 540 / 1120 Output Total 700 / 2700 1500 / 4200 Balance -160 / -1580 -1500 / -3080 Weight last 48 hrs Weight 102.71 kg Physical Exam Narrative: Overweight man sitting up in no apparent distress. Vital signs noted. Patient on nasal cannula oxygen. Skin multiple lesions by his groin and underarms with ulcerations HEENT normocephalic/atraumatic. Neck is supple. Lungs-bilateral expiratory wheezes. Heart regular Abdomen is soft positive bowel sounds. Extremities-improved edema. Neuro awake alert oriented x 3. Strength improved. The patient was seen and examined using audiovisual technology this was a telehealth visit. The nurse examined the patient. Data 03/07/24 04:26 03/07/24 04:26 Micro: Microbiology 03/01/24 13:03 Blood Culture - Final Blood NO GROWTH AFTER 5 DAYS 03/01/24 12:58 Blood Culture - Final Blood NO GROWTH AFTER 5 DAYS A&P Assessment and plan (1) Acute renal failure: The patient is a 68-year-old gentleman history of COPD, CHF I do not have an echo, CVA [place] hydrocele. The patient has recently been started on Lasix and lisinopril along with bupropion. 1. Acute kidney injury -- patient had a normal creatinine on February 02, 2024. Patient CT scan without obstruction. Urinalysis reviewed is dark and cloudy 1+ protein trace glucose 1+ ketones 2+ blood 2+ leuk esterase 55-80 white cells. Etiology likely ATN vs prerenal azotemia. Q of TLS CK under 3000, is too low to cause such severe ADELA pending serologies. Noticed baseline creatinine 0.9 --> 17 on admission Renal function is improved. Please remove dialysis catheter. -I will DC his Moore catheter. 2. Replace electrolytes of magnesium and potassium are being lost due to post ADELA diuresis 3 Hypothyroidism please give levothyroxine 4. Encourage exercise. CK improving. Hemoglobin acceptable. Medications reviewed Skin lesions and ulcerations as per medicine and surgery. The patient consented to telehealth visit. The patient was seen and examined using A/V equipment. Patient was seen with the nurse. Qualifiers: Acute renal failure type: unspecified Qualified Code(s): N17.9 - Acute kidney failure, unspecified Plan See above. Attestations Medical Necessity Statement*: USMAN Moore. Replace electrolytes improving acute kidney injury skin ulcerations as per medicine. Time Spent in Patient Care: 16 - 35 minutes (>than 50% of time spent in counselling and/or direct pt care on unit). Coding Level of Care Code Acute Code for [facility] Fwd Diagnoses Acute renal failure, unspecified acute renal failure type N17.9 Acute renal failure type: unspecified
[2024-03-07 09:03] LABS: Creatine Phosphokinase 49 U/L (39-308)
[2024-03-07] MEDS: magnesium sulfate premix 1 GM/100 ML PIGGYBACK IV ×2 (09:46→14:49)
[2024-03-07] MEDS: potassium chloride ER 20 mEq Tablet PO (09:47)
[2024-03-07] MEDS: calcium carbonate 500 mg Chew Tablet 1250 MG PO ×3 (09:47→19:48)
[2024-03-07] MEDS: cephALEXin 500 mg Capsule PO ×2 (09:47→18:24)
[2024-03-07] MEDS: terbinafine 1% Cream 15 gm 1 APPLIC TOPICAL ×2 (09:48→18:25)
[2024-03-07] MEDS: acetaminophen 325 mg Tablet 650 MG PO ×2 (10:46→19:49)
--- NOTE | 2024-03-07 11:12 | PC.NURSE ---
Moore catheter pulled. Patient tolerated well.
[2024-03-07 11:21] VITALS: BP 104/66; PULSE 76; RESP 17; TEMP 36.7; O2SAT 98
--- NOTE | 2024-03-07 12:49 | PC.SOCIAL ---
IMM Update pg 2 of IMM updated and reviewed w/ patient. Copy provided and copy dated, initialed and placed in chart.
[2024-03-07] MEDS: phosphorus 250 mg Tablet PO ×2 (14:50→18:24)
[2024-03-07 15:13] LABS: Free T4 Free Thyroxine 1.01 ng/dL (0.82-1.77)
--- NOTE | 2024-03-07 15:46 | P.PN_ITS ---
Subjective 2 Subjective: Hospital course, labs appreciated. Examination patient sitting up in recliner. Denies any new complaints. States feeling a lot better. Denies any nausea, vomiting, headache. Has remained hemodynamically stable and afebrile. Currently on 2 L saturating more than 96%. Vitals/I&O/Wt Last Vital Signs Temp 98.0 F 03/07/24 11:21 Pulse 76 03/07/24 11:21 Resp 17 03/07/24 11:21 BP 104/66 03/07/24 11:21 Pulse Ox 98 03/07/24 11:21 O2 Del Method Nasal Cannula 03/07/24 11:21 O2 Flow Rate 2 03/07/24 11:21 03/07/24 03/07/24 03/07/24 06:59 14:59 22:59 Intake Total 480 / 480 Output Total 1500 / 4200 900 / 900 Balance -1500 / -3080 -420 / -420 Weight last 48 hrs Weight 102.71 kg Physical Exam 2 Const: COMMON NORMALS: patient oriented x3 and alert GENERAL APPEARANCE: c ooperative ORIENTATION/CONSCIOUSNESS: Yes awake HENMT: COMMON NORMALS: oropharynx normal Neck/C-Spine: COMMON NORMALS: no JVD Resp: COMMON NORMALS: normal respiratory effort and clear to auscultation bilaterally AUSCULTATION: clear to auscultation bilaterally Cardio: COMMON NORMALS: no JVD, regular rhythm, S1 normal heart sound present, S2 normal heart sound present and No murmurs present (Cardio) RHYTHM: regular rhythm HEART SOUNDS: S1 normal heart sound present and S2 normal heart sound present GI: COMMON NORMALS: Normal to inspection, nondistended, normoactive bowel sounds present, Soft to palpation and non-tender PALPATION: Yes Soft to palpation Extremity: COMMON NORMALS: no joint enlargement and no pedal edema Neuro: COMMON NORMALS: patient oriented x3 and moves all extremities S ENSORIUM/ORIENTATION: Yes alert Skin: LESIONS: lesion noted (Multiple small lesions/tiny ulcerations throughout the body, worse on LE) RASHES: rashes noted (Slight improvement in armpits, groin, under pannus rash) OTHER: No blisters or bullae. Some ulcerations without confluence. Data 03/07/24 04:26 03/07/24 04:26 Micro: Microbiology 03/01/24 13:03 Blood Culture - Final Blood NO GROWTH AFTER 5 DAYS 03/01/24 12:58 Blood Culture - Final Blood NO GROWTH AFTER 5 DAYS A&P Assessment and plan (1) Acute renal failure: Likely ATN in setting of recent versus prerenal azotemia anemia. CT abdomen pelvis negative for obstructive nephropathy. Improving. Dialysis catheter has been removed. Appropriate urine output. Creatinine down to 1.8. Appreciate nephrology recommendations. Strict input charting. Medical reconciliation done for nephrotoxic drugs. Holding off on Lasix and lisinopril for now. Recently diagnosed with CHF. Reviewed echocardiogram, low normal EF, 50%, grade 1 diastolic function, no obvious RWMA. Mildly globally hypokinetic LV. Qualifiers: Acute renal failure type: unspecified Qualified Code(s): N17.9 - Acute kidney failure, unspecified (2) Metabolic acidosis: Resolved. (3) Uremia: Resolved after hemodialysis. (4) Skin infection: Cellulitis of armpits, groin secondary to tinea corporis. MRSA swab pending. Continue with cephalexin. Will plan to continue for overall 7-day course. Date?continue with topical antifungal. Reviewed surgery note, the surgeon has reassessed his wound, no further debridement needed. (5) Rhabdomyolysis: Resolved. Possibly after a fall and staying on the floor for some time at home with generalized weakness. Possibly with dehydration, hypotension. (6) Smoker: Current smoker, discussed smoking cessation for 5 minutes. He states he knows he should quit. He is agreeable to nicotine patch, will add lozenges as needed as well. (7) Hyperkalemia: Resolved. Received Kayexalate. Started on dialysis. Hypokalemia improved. (8) Abnormal urinalysis: (9) CHF (congestive heart failure): Echocardiogram showed an EF of 50% with grade 1 diastolic dysfunction, moderate aortic valve calcification with mild aortic stenosis and mild aortic regurgitation. Patient euvolemic for now. Continue to monitor. Holding off on Lasix for now. Qualifiers: Heart failure chronicity: acute on chronic Heart failure type: combined systolic and diastolic Qualified Code(s): I50.43 - Acute on chronic combined systolic (congestive) and diastolic (congestive) heart failure (10) Chronic back pain: Qualifiers: Back pain location: low back pain Back pain laterality: bilateral S ciatica presence: without sciatica Qualified Code(s): M54.50 - Low back pain, unspecified; G89.29 - Other chronic pain Plan Difficulty coping after loss of his in 2012: Possible depression, started on bupropion by PCP. Will start on 75 mg daily for now. Subclinical hypothyroidism: TSH found to be more than 15. Check free T3 and free T4. For now continue with low-dose levothyroxine at 50 mcg daily. Will plan for repeat thyroid panel done in the next 4 weeks. Decreasing functional capacity: With recent difficulties with ambulation, using walker, but had also required a wheelchair. Difficult social situation, some limited social support. Poor living conditions at home. PT. Case management consultation. Discharge planning: Given poor living condition, admission because of acute renal failure patient will require further rehabitation and would benefit from SNF placement. Case management has been working on the same. Discharge to SNF once accepted. Attestations 2 Medical Necessity Statement*: Requires further hospitalization for management of acute renal failure requiring temporary dialysis in setting of rhabdomyolysis. Fall, dehydration while safe discharge planning is sought. Diagnoses Acute renal failure, unspecified acute renal failure type N17.9 Acute renal failure type: unspecified Metabolic acidosis E87.20 Uremia N19 Skin infection L08.9 Rhabdomyolysis M62.82 Smoker F17.200 Hyperkalemia E87.5 Abnormal urinalysis R82.90 Acute on chronic combined systolic and diastolic congestive heart failure I50.43 Heart failure chronicity: acute on chronic Heart failure type: combined systolic and diastolic Chronic bilateral low back pain without sciatica M54.50; G89.29 Back pain location: low back pain Back pain laterality: bilateral Sciatica presence: without sciatica
[2024-03-07 15:53] VITALS: BP 129/85; PULSE 71; RESP 16; TEMP 36.7; O2SAT 97
[2024-03-07 15:56] LABS: Vitamin B12 325 pg/mL (232-1245)
[2024-03-07 16:20] LABS: Ethylene Glycol <10.0 mg/L (***)
[2024-03-07] MEDS: nicotine 21 mg Patch 1 PATCH TRANSDERMA (18:24)
[2024-03-07 20:00] VITALS: BP 111/62; PULSE 80; RESP 18; TEMP 36.6; O2SAT 98
[2024-03-08] VITALS: BP 144/80; PULSE 78; RESP 18; TEMP 36.7; O2SAT 90
[2024-03-08] MEDS: acetaminophen 325 mg Tablet 650 MG PO (01:34)
[2024-03-08 04:00] VITALS: BP 146/83; PULSE 83; RESP 17; TEMP 36.7; O2SAT 100
[2024-03-08] MEDS: levothyroxine 50 mcg Tablet PO (05:40)
--- NOTE | 2024-03-08 05:40 | PC.NURSE ---
Patient's oxygen saturation 97 percent on room air.
[2024-03-08 06:17] LABS: Alanine Aminotransferase 12 U/L (0-41); Albumin Level 3.2 g/dL (3.5-5.2); Alkaline Phosphatase 59 U/L (40-130); Anion Gap 14.7 (5-19); Aspartate Amino Transferase 18 U/L (0-40); Blood Urea Nitrogen 33 mg/dL (8-23); Calcium 8.2 mg/dL (8.5-10.5); Carbon Dioxide 32 mmol/L (22-29); Chloride 103 mmol/L (98-107); Chol HDL Ratio 3.31 mg/dL (1.0-5.00); Cholesterol 129 mg/dL (0-200); Globulin 3.2 g/dL (1.3-4.6); Glomerular Filtration Rate 40.5 mL/min (90-130); Glucose 93 mg/dL (65-115); HDL Cholesterol 39 mg/dL (60-100); LDL Cholesterol Calculated 55 mg/dL (50-129); Magnesium 1.4 mg/dL (1.7-2.3); Osmolality Calculated 309 mOsm/kg (285-295); Phosphorus 3.6 mg/dL (2.5-4.5); Potassium 3.7 mmol/L (3.5-5.1); Sodium 146 mmol/L (136-145); Total Bilirubin 0.2 mg/dL (0.15-1.2); Total Protein 6.4 g/dL (6.6-8.7); Triglycerides 176 mg/dL (0-150); VLDL Cholestrol Calculation 35 mg/dL (0-30)
[2024-03-08 06:18] LABS: Creatine Phosphokinase 41 U/L (39-308)
[2024-03-08 06:20] LABS: Creatinine Clr Calc Pharmacy 51.6706
[2024-03-08 06:33] LABS: Folate Level 3.6 ng/mL (4.5-32.2)
[2024-03-08 07:38] VITALS: BP 135/84; PULSE 93; RESP 17; TEMP 36.7; O2SAT 97
[2024-03-08] MEDS: calcium carbonate 500 mg Chew Tablet 1250 MG PO (09:19)
[2024-03-08] MEDS: phosphorus 250 mg Tablet PO (09:20)
[2024-03-08] MEDS: cephALEXin 500 mg Capsule PO (09:20)
[2024-03-08] MEDS: terbinafine 1% Cream 15 gm 1 APPLIC TOPICAL (09:22)
--- NOTE | 2024-03-08 10:51 | P.PN_ITS ---
Subjective 2 Subjective: He feels well. He states he is drinking a lot of fluids. He is urinating he states sometimes he feels that he does not fully empty. No nausea no vomiting no shortness of breath or chest pain. Medications: Reviewed: Yes Medication Review Details: Current Medications Acetaminophen (Acetaminophen 325 Mg Tablet) 650 mg PO Q6H PRN PRN Reason: Mild/Mod Pain Or Temp >/= 101 Last Admin: 03/08/24 01:34 Dose: 650 mg Calcium Carbonate (Calcium Carbonate 500 Mg Chew Tablet) 1,250 mg PO TID [facility] Last Admin: 03/08/24 09:19 Dose: 1,250 mg Cephalexin HCl (Cephalexin 500 Mg Capsule) 500 mg PO BID [facility]; Protocol Last Admin: 03/08/24 09:20 Dose: 500 mg Ergocalciferol (Ergocalciferol (Vitamin D2) 50,000 Unit Capsule) 50,000 unit PO Q7D [facility] Last Admin: 03/02/24 08:38 Dose: 50,000 unit Sodium Chloride (Sodium Chloride 0.9%) 1,000 mls @ 0 mls/hr IV .Q0M PRN PRN Reason: hypotension or symptomatic Dextrose (D10w) 250 mls @ 1,000 mls/hr IV PRN PRN PRN Reason: HYPOGLYCEMIA Levothyroxine Sodium (Levothyroxine 50 Mcg Tablet) 50 mcg PO QAM [facility] Last Admin: 03/08/24 05:40 Dose: 50 mcg Nicotine (Nicotine 21 Mg Patch) 1 patch TRANSDERMA Q24H [facility] Last Admin: 03/07/24 18:24 Dose: 1 patch Nicotine Polacrilex (Nicotine 4 Mg Lozenge) 4 mg MUCOUS MEM Q4H PRN PRN Reason: NICOTINE CRAVINGS Ondansetron HCl (Ondansetron 2 Mg/Ml Sdv 2 Ml) 4 mg IVP Q8H PRN PRN Reason: vomiting, or N/V if npo Potassium Phosphate (Phosphorus 250 Mg Tablet) 250 mg PO BID [facility] Last Admin: 03/08/24 09:20 Dose: 250 mg Terbinafine HCl (Terbinafine 1% Cream 15 Gm) 1 applic TOPICAL BID [facility] Last Admin: 03/08/24 09:22 Dose: 1 applic Vitals/I&O/Wt Last Vital Signs Temp 98.1 F 03/08/24 07:38 Pulse 93 07/09/24 07:38 Resp 17 03/08/24 07:38 BP 135/84 03/08/24 07:38 Pulse Ox 97 03/08/24 07:38 O2 Del Method Room Air 03/08/24 07:38 O2 Flow Rate 2 03/07/24 15:53 03/07/24 03/08/24 03/08/24 22:59 06:59 14:59 Intake Total 480 / 960 240 / 240 Output Total 800 / 1700 600 / 2300 550 / 550 Balance -320 / -740 -600 / -1340 -310 / -310 Weight last 48 hrs Weight 107.615 kg Weight 102.71 kg Physical Exam 2 Narrative: Overweight man sitting up in no apparent distress. Vital signs noted. Patient on nasal cannula oxygen. Skin multiple lesions by his groin and underarms with ulcerations HEENT normocephalic/atraumatic. Neck is supple. Lungs-movement bilaterally Heart regular Abdomen is soft positive bowel sounds. Extremities-improved edema. Neuro awake alert oriented x 3. Strength improved. The patient was seen and examined using audiovisual technology this was a telehealth visit. The nurse examined the patient. Data 03/07/24 04:26 03/08/24 05:30 A&P Assessment and plan (1) Acute renal failure: The patient is a 68-year-old gentleman history of COPD, CHF I do not have an echo, CVA WA hydrocele. The patient has recently been started on Lasix and lisinopril along with bupropion. 1. Acute kidney injury -- patient had a normal creatinine on February 02, 2024. Patient CT scan without obstruction. Urinalysis reviewed is dark and cloudy 1+ protein trace glucose 1+ ketones 2+ blood 2+ leuk esterase 55-80 white cells. Etiology likely ATN vs prerenal azotemia. Q of TLS CK under 3000, is too low to cause such severe ADELA pending serologies. Noticed baseline creatinine 0.9 --> 17 on admission Renal function is improved. Dialysis catheter and Moore removed. 2. Hyponatremia coverage water and do not give diuretics. 3. Metabolic alkalosis patient likely somewhat dry. 4. Continue replace potassium and magnesium likely still falling from post ADELA diuresis. 5. Hypothyroidism please give levothyroxine 6. Encourage exercise. 7 replace vitamin D CK improving. Will repeat Hemoglobin acceptable. Medications reviewed Skin lesions and ulcerations as per medicine and surgery. The patient consented to telehealth visit. The patient was seen and examined using A/V equipment. Patient was seen with the nurse. Qualifiers: Acute renal failure type: unspecified Qualified Code(s): N17.9 - Acute kidney failure, unspecified Plan See above. Attestations 2 Medical Necessity Statement*: Improving acute kidney injury hopefully should be able to be discharged soon Time Spent in Patient Care: 16 - 35 minutes (>than 50% of time sp ent in counselling and/or direct pt care on unit) . Coding Level of Care Code Acute Code for [facility] Fwd Diagnoses Acute renal failure, unspecified acute renal failure type N17.9 Acute renal failure type: unspecified
--- NOTE | 2024-03-08 11:27 | P.DS_ITS ---
Discharge Providers Date of Admission: 03/01/24 16:05 Date of Discharge: March 08, 2024 Attending Provider at Admission: Armen Carreno Attending Provider at Discharge: Alejo Lugo MD Consults: Telemetry nephrology Surgery: Dr. Sandor Lai Primary Care Provider: Bandar Jones MD Diagnoses at Discharge Discharge Diagnosis (1) Acute renal failure: Status: Acute Qualifiers: Acute renal failure type: unspecified Qualified Code(s): N17.9 - Acute kidney failure, unspecified Reason for Visit Reason for Visit: Chest pain, Bites all over, SOB Brief History: History as per HPI: Pleasant 68-year-old gentleman with history of COPD, using oxygen at home as needed, current smoker, with chronic back pain, recently with concern for congestive heart failure, with pleural effusions, lower extremity edema, scrotal edema, treated with diuretics, started on lisinopril, started on bupropion with concern for depression relating 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 He was brought in for evaluation to ER after he was calling out for help and was heard by his neighbors, he was not feeling well, he states he felt like he was going to . He has been significantly weak. Has had a few falls including one a couple days ago had to stay on the floor for some time laying on his belly. With some pleuritic discomfort. Has been coughing up some phlegm. He states has not urinated in several days. In ER he is found to have leukocytosis 27.5, elevated ESR 94, acidemia, 7.1/25.1/97.6, hyponatremia 133, hyperkalemia 6, chloride 85, bicarb 9, anion gap 45, BUN 76, creatinine 17 glucose 87. Lactic acid 2.9. Calcium 5.9. Phosphorus 16.9. CK 2938. Baseline troponin 173, chart 160. NT-proBNP 11,333. Albumin 3.3. Globulin 4.8. Procalcitonin 1.32. UA urine cloudy, with 1+ ketones, 55-80 WBC, but also 45-55 SEC. 1+ bacteria. Serum ketones negative. Chest x-ray without acute cardiopulmonary abnormality. CT chest abdomen pelvis with no evidence of acute abnormality on noncontrast study, emphysema. Initially hypotensive on presentation, blood pressure 79/43, received fluid bolus and currently receiving another 1. Started on meropenem, linezolid, given a dose of methylprednisolone, breathing treatment. He is noted to have significant rashes including erythema, excoriation under armpits, in the groin, under pannus. As well as multiple small bite bruce spread throughout the body. He states that something has been biting him at home, he states he has not seen any bedbugs. Has seen cockroaches for sure. He states he has been ambulating a little bit with a walker, but has had a much more difficult time recently. He takes ibuprofen occasionally, maybe once or twice a week. Hospital Course Hospital Course Patient was admitted to the hospital at first with concerns of acute renal failure with metabolic acidosis, rhabdomyolysis uremia and hyperkalemia. On admission there was also concern for cellulitis for which he started on broad- spectrum antibiotics. Telenephrology was consulted who recommended patient to have urgent dialysis for which surgery was consulted and he underwent attempted dialysis catheter placement. Patient responded well to the daily dialysis and his renal functions improved. His blood cultures remain negative during hospitalization. He was also found to have elevated TSH more than 17 for which he was started on oral levothyroxine. He responded well to the treatment and currently has been passing urine well by himself with creatinine down to 1.7 today. Given the difficult social situation with no family around, patient unable to take care of himself safe discharge plan were discussed in detail with patient and he was agreeable to transfer to SNF. He is back to SNF hemodynamically stable condition with advised to repeat BMP in 1 week. He should also have a repeat thyroid panel do patient is encouraged to increase his oral intake of liquids. Ne in 1 month. Physical Exam Const: COMMON NORMALS: patient oriented x3 and alert GENERAL APPEARANCE: cooperative ORIENTATION/CONSCIOUSNESS: Yes awake HENMT: COMMON NORMALS: oropharynx normal Neck/C-Spine: COMMON NORMALS: no JVD Resp: COMMON NORMALS: normal respiratory effort and clear to auscultation bilaterally AUSCULTATION: clear to auscultation bilaterally Cardio: COMMON NORMALS: no JVD, regular rhythm, S1 normal heart sound present, S2 normal heart sound present and No murmurs present (Cardio) RHYTHM: regular rhythm HEART SOUNDS: S1 normal heart sound present and S2 normal heart sound present GI: COMMON NORMALS: Normal to inspection, nondistended, normoactive bowel sounds present, Soft to palpation and non-tender PALPATION: Yes Soft to palpation Extremity: COMMON NORMALS: no joint enlargement and no pedal edema Neuro: COMMON NORMALS: patient oriented x3 and moves all extremities SENSORIUM/ORIENTATION: Yes alert Skin: LESIONS: lesion noted (Multiple small lesions/tiny ulcerations throughout the body, worse on LE) RASHES: rashes noted (Slight improvement in armpits, groin, under pannus rash) OTHER: No blisters or bullae. Some ulcerations without confluence. Discharge Data Studies Completed and Pending Completed Studies During Hospitalization Category Date Time Status CT chest abdomen pelvis [[place] [id number] Cat Scan 03/01/24 14:07 Completed ] Stat XR chest 1V portable [id number] Stat Exams 03/01/24 12:38 Completed CV. echo complete* [id number] Routine Ultrasound 03/01/24 17:21 Completed Pending at discharge Category Date Time Status CLARA Screen w/ Reflex Routine Lab 03/01/24 18:46 Results CLARA Screen w/ Reflex Routine Lab 03/01/24 21:53 Received Anti Double Stranded DNA AB Routine Lab 03/01/24 18:46 Received Anti-Neutrophil Cytoplasmic AB Routine Lab 03/01/24 18:46 Results Anti-Neutrophil Cytoplasmic AB Routine Lab 03/01/24 21:53 Received CPK [Creatine Phosphokinase] AM LABS Lab 03/09/24 04:00 Ordered Comprehensive Metabolic Panel AM LABS Lab 03/09/24 04:00 Ordered Comprehensive Metabolic Panel AM LABS Lab 03/10/24 04:00 Ordered Glomerular Basement AB IGG Routine Lab 03/01/24 18:46 Results MRSA [Methicillin Resistant S.aureu] Routine Lab 03/06/24 21:10 Received Magnesium AM LABS Lab 03/09/24 04:00 Ordered Magnesium AM LABS Lab 03/10/24 04:00 Ordered Phosphorus AM LABS Lab 03/09/24 04:00 Ordered Phosphorus AM LABS Lab 03/10/24 04:00 Ordered Radiology Impressions Chest X-Ray 03/01/24 12:38 IMPRESSION: 1. No acute cardiopulmonary abnormality. Chest/Abdomen/Pelvis CT 03/01/24 14:07 IMPRESSION: 1. No evidence of acute abnormality within limitations of a noncontrast exam. 2. Mild emphysematous changes. The presence of pulmonary emphysema on CT is an independent risk factor for lung cancer. In the absence of a history or active diagnosis of lung cancer, it is recommended that this patient with emphysema be evaluated for enrollment in a low dose CT lung cancer screening program. IMPRESSION: 1. No evidence of acute abnormality in the abdomen or pelvis within limitations of a noncontrast exam. Echocardiogram: CONCLUSIONS Suboptimal imaging. The ventricle is normal in size. There are no obvious wall motion disturbances. The left ventricular function is lower limit of normal to mildly globally hypokinetic. Ejection fraction is around 50%. Grade 1 diastolic dysfunction. Structurally normal mitral valve. Trace mitral valve regurgitation. Structurally normal trileaflet aortic valve. Moderate aortic valve calcification. Mild aortic valve stenosis, mean gradient 14.5 mmHg, MANJINDER 1.1 cm squared. Mild aortic valve regurgitation. There are no prior echocardiogram studies to compare. Dr. Dickson Rios MD (Electronically Signed) Final Date: 02 March 2024 Laboratory Results WBC 13.87 10^3/uL (3.29-11.43) H 03/07/24 04:26 RBC 4.26 10^6/uL (3.85-5.65) 03/07/24 04:26 Hgb 11.80 g/dL (11.27-16.99) 03/07/24 04:26 Hct 37.5 % (37-53) 03/07/24 04:26 MCV 88.0 fl (82-101) 03/07/24 04:26 MCH 27.7 pg (27-33) 03/07/24 04:26 MCHC 31.5 g/dL (30-55) 03/07/24 04:26 RDW 16.8 % (12.1-15.1) H 03/07/24 04:26 Plt Count 181 10^3/cmm (157-399) 03/07/24 04:26 MPV 9.9 fL (7.4-10.4) 03/07/24 04:26 Neut % (Auto) 80.1 % 03/07/24 04:26 Lymph % (Auto) 10.7 % 03/07/24 04:26 [place] % (Auto) 5.3 % 03/07/24 04:26 Eos % (Auto) 3.1 % 03/07/24 04:26 Baso % (Auto) 0.4 % 03/07/24 04:26 Neut # (Auto) 11.10 10^3/uL (1.8-7.7) H 03/07/24 04:26 Lymph # (Auto) 1.5 10^3/uL (0.8-4.8) 03/07/24 04:26 [place] # (Auto) 0.7 10^3/uL (0.2-0.9) 03/07/24 04: Eos # (Auto) 0.4 10^3/uL (0.0-0.8) 03/07/24 04: Baso # (Auto) 0.1 10^3/uL (0.0-0.1) 03/07/24 04: Nucleated RBC % (auto) 0 % 03/07/24 04: Nucleated RBCs # 0.0 /100WBC 03/07/24 04:26 ESR 94 mm/hr (0-10) H 03/01/24 12:58 Specimen Type Arterial 03/01/24 22:00 Sample Site Brachial, right 03/01/24 22:00 ABG pH 7.22 (7.35-7.45) L 03/01/24 22:00 ABG pCO2 28.9 mmHg (35-45) L 03/01/24 22:00 ABG pO2 109.0 mmHg (80.0-100.0) H 03/01/24 22:00 ABG PO2/FiO2 Ratio 464 03/01/24 12:46 ABG HCO3 11.9 mmol/L (22-26) L 03/01/24 22:00 ABG O2 Saturation 97.9 03/01/24 22:00 ABG Base Excess -14.3 mmol/L (-2.0-2.0) L 03/01/24 22:00 Lucian Test Pos 03/01/24 22:00 A-a O2 Gradient 0.3 mmHg (5-10) L 03/01/24 22:00 Hematocrit 40.9 % (42-52) L 03/01/24 22:00 Hgb O2 Saturation 96.0 % (95-100) 03/01/24 22:00 Carboxyhemoglobin 1.3 %THgb (0.4-20.1) 03/01/24 22:00 Methemoglobin 0.7 % (0.4-1.5) 03/01/24 22:00 Total Hemoglobin 13.3 g/dL (14-18) L 03/01/24 22:00 Sodium 135.0 mmol/L (131-143) 03/01/24 22:00 Potassium 5.2 mmol/L (3.5-5.0) H 03/01/24 22:00 Glucose 129.0 mg/dL (70-115) H 03/01/24 22:00 Ionized Calcium 0.7 mmol/L (1.1-1.4) L 03/01/24 22:00 O2 Delivery Device Nc 03/01/24 22:00 FiO2 21.0 % 03/01/24 12:46 Quality Control Manager ID [email or web address] 03/01/24 22:00 Sodium 146 mmol/L (136-145) H 03/08/24 05:30 Potassium 3.7 mmol/L (3.5-5.1) 03/08/24 05:30 Chloride 103 mmol/L (98-107) 03/08/24 05:30 Carbon Dioxide 32 mmol/L (22-29) H 03/08/24 05:30 Anion Gap 14.7 (5-19) 03/08/24 05:30 BUN 33 mg/dL (8-23) H 03/08/24 05:30 Creatinine 1.7 mg/dL (0.7-1.2) H 03/08/24 05:30 GFR Calculation 40.5 mL/min (90-130) L 03/08/24 05:30 Glucose 93 mg/dL (65-115) 03/08/24 05:30 Estimat Average Glucose 123 03/01/24 12:58 Hemoglobin A1c 5.9 % (4.0-6.0) 03/01/24 12:58 Calculated Osmolality 309 mOsm/kg (285-295) H 03/08/24 05:30 Lactic Acid 2.9 mmol/L (0.5-2.2) H 03/01/24 13:03 Lactic Acid (Sepsis) 1.8 mmol/L (0.5-2.2) 03/01/24 16:02 Uric Acid 9.6 mg/dL (3.4-7.0) H 03/04/24 04:45 Calcium 8.2 mg/dL (8.5-10.5) L 03/08/24 05:30 Phosphorus 3.6 mg/dL (2.5-4.5) 03/08/24 05:30 Magnesium 1.4 mg/dL (1.7-2.3) L 03/08/24 05:30 Iron 56 ug/dL (59-158) L 03/02/24 04:15 TIBC 194 mcg/dl 03/02/24 04:15 % Saturation 28.8 % (20-50) 03/02/24 04:15 Unsat Iron Binding 138 ug/dL (112-347) 03/02/24 04:15 Ferritin 206 ng/mL (30-400) 03/02/24 04:15 Total Bilirubin 0.2 mg/dL (0.15-1.2) 03/08/24 05:30 AST 18 U/L (0-40) 03/08/24 05:30 ALT 12 U/L (0-41) 03/08/24 05:30 Alkaline Phosphatase 59 U/L (40-130) 03/08/24 05:30 Lactate Dehydrogenase 536 U/L (135-225) H 03/01/24 19:01 Creatine Kinase 41 U/L (39-308) 03/08/24 05:30 Troponin T Baseline 173 ng/L (0-15) H* 03/01/24 12:58 Troponin T 120 Minute 160.4 ng/L (0-15) H 03/01/24 14:54 Delta Troponin T -12.6 ABS# (0-10) L 03/01/24 14:54 Troponin T Hi Sens 6Hr 133.2 ng/L (0-15) H 03/01/24 19:14 Troponin T Hi Sens 6Hr Delta -39.8 ng/L (0-12) L 03/01/24 19:14 C-Reactive Protein 406.2 mg/L (0.0-4.9) H 03/01/24 12:58 NT-Pro-B Natriuret Pep 72798 pg/mL (0-125) H 03/01/24 12:58 Total Protein 6.4 g/dL (6.6-8.7) L 03/08/24 05:30 Albumin 3.2 g/dL (3.5-5.2) L 03/08/24 05:30 Globulin 3.2 g/dL (1.3-4.6) 03/08/24 05:30 Triglycerides 176 mg/dL (0-150) H 03/08/24 05:30 Cholesterol 129 mg/dL (0-200) 03/08/24 05:30 LDL Cholesterol, Calc 55 mg/dL (50-129) 03/08/24 05:30 Total VLDL Cholesterol 35 mg/dL (0-30) H 03/08/24 05:30 HDL Cholesterol 39 mg/dL (60-100) L 03/08/24 05:30 Cholesterol/HDL Ratio 3.31 mg/dL (1.0-5.00) 03/08/24 05:30 Vitamin B12 325 pg/mL (232-1245) 03/07/24 04:26 25-OH Vitamin D Total < 6 ng/mL (30-100) L 03/02/24 04:15 Folate 3.6 ng/mL (4.5-32.2) L 03/08/24 05:30 Procalcitonin 1.32 ng/mL (0-0.5) H 03/01/24 12:58 TSH 15.99 uIU/mL (0.27-4.20) H 03/01/24 14:34 Free T4 1.01 ng/dL (0.82-1.77) 03/07/24 04:26 Free T3 2.0 PG/ML (2.0-4.4) 03/07/24 04:26 PTH Intact 229.4 pg/mL (15-65) H 03/01/24 12:58 Calcium (PTH Intact) 5.7 mg/dL (8.5-10.5) L* 03/01/24 12:58 Urine Color Dark yellow (Yellow) A 03/01/24 13:48 Urine Appearance Cloudy (CLEAR) A 03/01/24 13:48 Urine pH 5 (5-7) 03/01/24 13:48 Ur Specific [place] 1.030 (1.005-1.030) 03/01/24 13:48 Urine Protein 1+ (Negative) H 03/01/24 13:48 Urine Glucose (UA) Trace (Normal) H 03/01/24 13:48 Urine Ketones 1+ (Negative) H 03/01/24 13:48 Urine Blood 2+ (Negative) H 03/01/24 13:48 Urine Nitrate Negative (Negative) 03/01/24 13:48 Urine Bilirubin 1+ (Negative) H 03/01/24 13:48 Urine Urobilinogen Norm mg/dL (Negative) 03/01/24 13:48 Ur Leukocyte Esterase 2+ (Negative) H 03/01/24 13:48 Urine RBC 0-4 /hpf (0-2) H 03/01/24 13:48 Urine WBC 55-80 /hpf (0-5) H 03/01/24 13:48 Ur Squamous Epith Cells 40-55 /hpf (0-5) H 03/01/24 13:48 Amorphous Sediment Not Reportable 03/01/24 13:48 Urine Bacteria 1+ /hpf (NONE) H 03/01/24 13:48 Ur Random Sodium 56 mmol/L 03/02/24 02:23 Ur Random Potassium 44 mmol/L 03/01/24 13:48 Ur Random Chloride 27 mmol/L 03/01/24 13:48 Urine Creatinine 497 mg/dL (39-259) H 03/01/24 13:48 Ethylene Glycol <10.0 mg/L () 03/02/24 07:25 Serum Ketones Negative (Negative) 03/01/24 12:58 CLARA Screen Negative (NEGATIVE) 03/01/24 18:46 Complement C3 179 mg/dL (90-180) 03/01/24 19:01 Complement C4 37 mg/dL (10-40) 03/01/24 19:01 Hep Bs Antigen Non-reactive (Nonreactive) 03/02/24 04:15 Hep Bs Antibody < 3.5 (11.5-1000) L 03/02/24 04:15 Hep B Core Total Ab Non-reactive (Nonreactive) 03/01/24 12:58 Hepatitis C Antibody Non-reactive (Nonreactive) 03/02/24 04:15 Vitals Last Vital Signs Temp 98.1 F 03/08/24 07:38 Pulse 93 03/08/24 07:38 Resp 17 03/08/24 07:38 BP 135/84 03/08/24 07:38 Pulse Ox 97 03/08/24 07:38 O2 Del Method Room Air 03/08/24 07:38 O2 Flow Rate 2 03/07/24 15:53 Discharge Plan Discharge Patient Disposition: Xfer SNF Condition: Stable Prescriptions: New levothyroxine 50 mcg Tablet 50 mcg PO QAM Qty: 30 0RF cephalexin 500 mg Capsule 500 mg PO BID 3 Days Qty: 6 0RF calcium carbonate 200 mg calcium (500 mg) Tablet,Chewable 1,250 mg PO TID Qty: 90 0RF Vitamin D2 1,250 mcg (50,000 unit) Capsule 50,000 unit PO Q7D 30 Days Qty: 5 0RF Celexa 10 mg tablet 10 mg PO DAILY Qty: 30 0RF Continued (DME) wheelchair See Rx Instructions .Route .MEDSUPPLY Qty: 1 0RF Rx Instructions: As directed Ventolin HFA 90 mcg/actuation HFA aerosol inhaler 2 puff inhalation QID PRN (Reason: Shortness Of Breath) Discontinued lisinopril 10 mg tablet 10 mg PO DAILY Qty: 90 1RF Lasix 40 mg tablet 40 mg PO DAILY Qty: 30 0RF bupropion HCl [Wellbutrin SR] 100 mg tablet sustained-release 12 hr 100 mg PO QAM Qty: 30 1RF Discharge Orders: Discharge Order (Routine); Ordered 03/08/24 Ordered By: Alejo Lugo Referrals: [facility] [Outside] Bandar Jones MD [Primary Care Provider] - 1 week Discharge Diet: Cardiac Discharge Activity: Resume usual activity and Increase activity as tolerated Patient Instructions: Dialysis Diet (DC), Hemodialysis (DC), Opioid Safety Activity Restrictions/Additional Instructions: Repeat BMP in 1 week. Repeat thyroid panel in 1 month Please maintain oral hydration with up to 50 ounces of liquids daily. Goal blood pressure less than 140/90 mmHg. Discharge Attestations Time Spent in Discharge Care*: greater than 30 min Specific Discharge Activities: educating patient, discussing with pcp/other providers, discussing with supportive employment case manager/social workers/dc planners, documenting/other paperwork and evaluating patient/reviewing data Status at Discharge: Cognitive status at discharge: cognitively intact , Behavioral status at discharge: cooperative , Functional status at discharge: uses cane/walker , Overall status at discharge: patient is progressing back to baseline Quality Metrics Clinical Quality Measures [ No reported AMI, CVA or VTE this stay] Coding Level of Care Code 23592 Total time (in minutes) for Discharge: 60 Diagnoses Acute renal failure, unspecified acute renal failure type N17.9 Acute renal failure type: unspecified
[2024-03-08 11:38] VITALS: BP 156/78; PULSE 93; RESP 16; TEMP 36.4; O2SAT 99
[2024-03-08 12:04] LABS: ANCA Screen NEGATIVE (NEGATIVE)
--- NOTE | 2024-03-08 13:03 | PC.NURSE ---
report called to mariely at [facility]
[2024-03-08 16:19] LABS: Glomerular Bsmt Membrane IGG <1.0 AI
[2024-03-09 15:09] LABS: Methicillin-Resist S.aureu PCR NOT DETECTED (NOT DETECTED)
== END 2024-03-08 14:24 | disposition skilled nursing facility (03) | DRG 682 ==
LOC: ER 15:45 → ER IP 16:06 → ICU 18:15 → MEDSURG 03-02 19:58
PROVIDERS: Internal Medicine Nephrology; Admitting Provider Internal Medicine; Emergency Provider Emergency Medicine; PCP Family Medicine Adult Medicine; Visit Provider Student in an Organized Health Care Education/Training Program
DX: N17.9 Acute kidney failure, unspecified (principal); G93.41 Metabolic encephalopathy; I50.43 Acute on chronic combined systolic (congestive) and diastolic (congestive) heart failure; K65.0 Generalized (acute) peritonitis; E87.20 Acidosis, unspecified; M62.82 Rhabdomyolysis; N39.0 Urinary tract infection, site not specified; E87.1 Hypo-osmolality and hyponatremia; J44.1 Chronic obstructive pulmonary disease with (acute) exacerbation; L03.112 Cellulitis of left axilla; L03.111 Cellulitis of right axilla; L03.314 Cellulitis of groin; E87.5 Hyperkalemia; Z99.3 Dependence on wheelchair; W19.XXXA Unspecified fall, initial encounter; F32.A Depression, unspecified; Z63.4 Disappearance and death of family member; I95.9 Hypotension, unspecified; E87.6 Hypokalemia; E83.42 Hypomagnesemia; E83.39 Other disorders of phosphorus metabolism; E83.51 Hypocalcemia; Z99.81 Dependence on supplemental oxygen; F17.210 Nicotine dependence, cigarettes, uncomplicated; M54.9 Dorsalgia, unspecified; G89.29 Other chronic pain; I11.0 Hypertensive heart disease with heart failure; Z86.73 Personal history of transient ischemic attack (TIA), and cerebral infarction without residual deficits; E03.8 Other specified hypothyroidism; E66.9 Obesity, unspecified; Z68.30 Body mass index [BMI] 30.0-30.9, adult; B35.4 Tinea corporis; R21 Rash and other nonspecific skin eruption; T14.8XXA Other injury of unspecified body region, initial encounter; Y99.9 Unspecified external cause status; B96.89 Other specified bacterial agents as the cause of diseases classified elsewhere
CPT/HCPCS: 36415; 36600; 71045; 71250; 74176; 80048; 80051; 80053; 80061; 81001; 82009; 82306; 82310; 82330; 82436; 82550; 82570; 82607; 82693; 82728; 82746; 82805; 83036; 83520; 83540; 83550; 83605; 83615; 83735; 83880; 83970; 84100; 84133; 84145; 84300; 84439; 84443; 84481; 84484; 84550; 85025; 85651; 86036; 86038; 86140; 86160; 86225; 86705; 86706; 86803; 87040; 87340; 87641; 90935; 93005; 93306; 94640; 96365; 96372; 96375; 96376; 97110; 97116; 97161; 97530; 99285; J0612; J1644; J1815; J2020; J2185; J2543; J2919; J3475; J7030; J7070; J7613; Q3014

== ENCOUNTER 2024-03-10 07:59 | Observation (INO) | payer MEDICARE, SELFPAY ==
[2024-03-10] VITALS (59 sets, daily range): BP systolic 109–158; BP diastolic 68–109; PULSE 103–122; RESP 14–40; TEMP 36.8–37.2; O2SAT 90–100; BMI 33.6
--- NOTE | 2024-03-10 08:02 | XRR_ITS ---
PROCEDURE INFORMATION: Exam: XR Chest Exam date and time: 03/10/2024 9:05 AM Age: 68 years old Clinical indication: Dyspnea/cough TECHNIQUE: Imaging protocol: Radiologic exam of the chest. Views: 1 view. COMPARISON: [place] [id number] 03/01/2024 2:42 PM FINDINGS: Tubes, catheters and devices: There is a thoracic spinal stimulator. Lungs: Possible ill-defined airspace disease in the right upper lobe, potentially due to pneumonia. Questionable similar changes in the lung bases. Calcified pulmonary granuloma in the lateral left lung base. Pleural spaces: No pleural effusion or pneumothorax. Heart/Mediastinum: The cardiac silhouette is not enlarged. The mediastinal contours are normal. Bones/joints: No acute osseous abnormality. XR/XR chest 1V portable [id number] IMPRESSION: Suspect right upper lobe airspace disease, and possibly in both lung bases as well. This could be due to pneumonia given the history. This could be clarified with CT CHEST, as clinically directed.
--- NOTE | 2024-03-10 08:02 | ECG_ITS ---
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 Measurements Intervals [place] Rate: 110 P: 58 MA: 157 QRS: -14 QRSD: 105 T: 40 QT: 340 QTc: 461 Interpretive Statements SINUS TACHYCARDIA ABNORMAL RHYTHM ECG Compared to ECG 03/01/2024 21:42:58 Sinus rhythm no longer present First degree AV block no longer present Myocardial infarct finding no longer present Electronically Signed On 03-10-2024 23:27:32 CDT by Vishnu Sr M.D. [id number]
--- NOTE | 2024-03-10 08:20 | ED_ITS ---
HPI - SOB/Dyspnea 2 General: Chief Complaint: Shortness of Breath/Dyspnea Stated Complaint: sob Time Seen by Provider: 03/10/24 08:00 Source: patient Mode of arrival: EMS History of Present Illness: HPI Narrative: 68-year-old male presents to the emergen cy room via EMS from local assisted he was recently hospitalized for acute renal failure with congestive heart failure. Appears reviewing his old labs he had a UTI as well but his blood cultures did not grow anything out any urine culture was not done. He presents back today with increasing shortness of breath tachycardia orthopnea. He is usually on 2 L by nasal cannula he is now requiring 3. He does not have any chest pain at this time. MD elicited complaint: shortness of breath and cough Pertinent past history: congestive heart failure Onset (ago): hour(s) Context: recent illness Timing: constant Severity: moderate Exacerbating factors: lying flat, exertion and talking Relieving factors: oxygen, rest and upright position Known history of: congestive heart failure Associated symptoms: Reports orthopnea and palpitations; Deny abdominal pain, chest congestion, chest pain, cough, diaphoresis, dizziness, extremity pain, fever(s), hemoptysis, lightheadedness, myalgias, nausea, paresthesias, polydipsia, polyuria, rash, sense of impending doom, syncope or vomiting Treatment prior to arrival: oxygen Related Data: Home oxygen amount: 2 liters Review of Systems 2 Const: Denies: fever(s), chills or diaphoresis Card: Reports: palpitations, dyspnea on exertion and orthopnea; Denies: chest pain, lightheadedness or syncope Resp: Reports: dyspnea; Denies: hemoptysis or chest congestion GI: Denies: abdominal pain, nausea or vomiting : Denies: dysuria, urinary frequency or urinary urgency Musc: Denies: neck pain, back pain or extremity pain Skin/Breast: Denies: rash Neuro: Denies: dizziness Endo: Denies: polyuria or polydipsia PFSH ED 2 PFSH: Medical History CAD (coronary artery disease) Hx [place], Smoker Obesity (BMI 30.0-34.9) Chronic back pain Hx of arterial ischemic stroke Hx of myocardial infarction COPD (chronic obstructive pulmonary disease) Hydrocele CHF (congestive heart failure) Surgical History History of appendectomy History of back surgery Family History Father Cancer Mother No problems noted. Social History Smoking and tobacco/nicotine status: current every day tobacco/nicotine user Quit status (tobacco/nicotine): not considering quitting Alcohol intake: current Alcohol intake frequency: 0-2 Drinks per Day Alcohol type: beer Substance/Drug Use: never Marital status: / Physical Exam 2 Const: GENERAL APPEARANCE: cooperative and comfortable O RIENTATION/CONSCIOUSNESS: Yes awake, Yes oriented to person, Yes oriented to place and Yes oriented to time HENMT: COMMON NORMALS: normocephalic, atraumatic and hearing grossly normal bilaterally HEAD & SCALP: normocephalic and atraumatic Resp: COMMON NORMALS: normal respiratory effort, No retractions and No use of accessory muscles AUSCULTATION: crackles Cardio: COMMON NORMALS: regular rhythm and No murmurs present (Cardio) R ATE: tachycardic RHYTHM: regular rhythm GI: COMMON NORMALS: Soft to palpation and No hepatosplenomegaly present A USCULTATION: Yes normoactive bowel sounds PALPATION: Yes Soft to palpation, No Tenderness to palpation present (GI), No Guarding due to palpation present (GI) and Yes No hepatosplenomegaly present Extremity: COMMON NORMALS: normal to inspection, capillary refill normal, no clubbing, cyanosis or edema, no calf tenderness and no pedal edema Neuro: SENSORIUM/ORIENTATION: Yes oriented to person, Yes oriented to place and Yes oriented to time Skin: COMMON NORMALS: no rashes or lesions noted GENERAL SKIN EXAM: no rashes or lesions noted Course 2 Vital Signs: Vital signs: Vital Signs Temperature 98.2 F 03/10/24 08:01 Pulse Rate 109 H 03/10/24 14:07 Respiratory Rate 20 H 03/10/24 14:07 Blood Pressure 117/77 03/10/24 14:07 Pulse Oximetry 93 03/10/24 14:07 Oxygen Delivery Me thod Nasal Cannula 03/10/24 14:07 Oxygen Flow Rate 2 03/10/24 11:40 MDM - SOB/Dyspnea Medical Decision Making Chest x-ray shows what appears to be acute [place] worsening congestive heart failure being PE is elevated. White count also elevated but Pro-Aamir is negative. Creatinine has improved, is actually better from when the patient was discharged. He did go home without his Lasix. Concerned about reinitiating Lasix on an outpatient basis given his recent renal failure. Will place in observation. Medical Records I reviewed the patient's medical records. Lab Data I reviewed the patient's lab results. 03/10/24 08:51 03/10/24 08:51 Labs/Radiology: Radiology Impressions Chest X-Ray 03/10/24 08:02 IMPRESSION: Suspect right upper lobe airspace disease, and possibly in both lung bases as well. This could be due to pneumonia given the history. This could be clarified with CT CHEST, as clinically directed. Laboratory Results WBC 13.24 10^3/uL (3.29-11.43) H 03/10/24 08:51 RBC 4.49 10^6/uL (3.85-5.65) 03/10/24 08:51 Hgb 12.10 g/dL (11.27-16.99) 03/10/24 08:51 Hct 38.5 % (37-53) 03/10/24 08:51 MCV 85.7 fl (82-101) 03/10/24 08:51 MCH 26.9 pg (27-33) L 03/10/24 08:51 MCHC 31.4 g/dL (30-55) 03/10/24 08:51 RDW 17.4 % (12.1-15.1) H 03/10/24 08:51 Plt Count 144 10^3/cmm (157-399) L 03/10/24 08:51 MPV 9.8 fL (7.4-10.4) 03/10/24 08:51 Neut % (Auto) 78.8 % 03/10/24 08:51 Lymph % (Auto) 9.1 % 03/10/24 08:51 [place] % (Auto) 10.1 % 03/10/24 08:51 Eos % (Auto) 1.1 % 03/10/24 08:51 Baso % (Auto) 0.4 % 03/10/24 08:51 Neut # (Auto) 10.44 10^3/uL (1.8-7.7) H 03/10/24 08:51 Lymph # (Auto) 1.2 10^3/uL (0.8-4.8) 03/10/24 08:51 [place] # (Auto) 1.3 10^3/uL (0.2-0.9) H 03/10/24 08:51 Eos # (Auto) 0.2 10^3/uL (0.0-0.8) 03/10/24 08:51 Baso # (Auto) 0.1 10^3/uL (0.0-0.1) 03/10/24 08:51 Nucleated RBC % (auto) 0 % 03/10/24 08:51 Nucleated RBCs # 0.0 /100WBC 03/10/24 08:51 Specimen Type Arterial 03/10/24 08:22 Sample Site Radial, left 03/10/24 08:22 ABG pH 7.52 (7.35-7.45) H 03/10/24 08:22 ABG pCO2 34.5 mmHg (35-45) L 03/10/24 08:22 ABG pO2 61.8 mmHg (80.0-100.0) L 03/10/24 08:22 ABG PO2/FiO2 Ratio 294 03/10/24 08:22 ABG HCO3 28.0 mmol/L (22-26) H 03/10/24 08:22 ABG O2 Saturation 93.6 03/10/24 08:22 ABG Base Excess 5.1 mmol/L (-2.0-2.0) H 03/10/24 08:22 Lucian Test Pos 03/10/24 08:22 A-a O2 Gradient 5.9 mmHg (5-10) 03/10/24 08:22 Hematocrit 35.4 % (42-52) L 03/10/24 08:22 Hgb O2 Saturation 92.1 % (95-100) L 03/10/24 08:22 Carboxyhemoglobin 1.2 %THgb (0.4-20.1) 03/10/24 08:22 Methemoglobin 0.4 % (0.4-1.5) 03/10/24 08:22 Total Hemoglobin 11.6 g/dL (14-18) L 03/10/24 08:22 Sodium 142.0 mmol/L (131-143) 03/10/24 08:22 Potassium 3.9 mmol/L (3.5-5.0) 03/10/24 08:22 Glucose 104.0 mg/dL (70-115) 03/10/24 08:22 Ionized Calcium 1.1 mmol/L (1.1-1.4) 03/10/24 08:22 O2 Delivery Device Room air 03/10/24 08:22 FiO2 21.0 % 03/10/24 08:22 Analytical Lab Analyst ID Cak 03/10/24 08:22 Sodium 141 mmol/L (136-145) 03/10/24 08:51 Potassium 4.1 mmol/L (3.5-5.1) 03/10/24 08:51 Chloride 99 mmol/L (98-107) 03/10/24 08:51 Carbon Dioxide 27 mmol/L (22-29) 03/10/24 08:51 Anion Gap 19.1 (5-19) H 03/10/24 08:51 BUN 23 mg/dL (8-23) 03/10/24 08:51 Creatinine 1.2 mg/dL (0.7-1.2) 03/10/24 08:51 GFR Calculation 60.6 mL/min (90-130) L 03/10/24 08:51 Glucose 101 mg/dL (65-115) 03/10/24 08:51 Calculated Osmolality 296 mOsm/kg (285-295) H 03/10/24 08:51 Lactic Acid 1.7 mmol/L (0.5-2.2) 03/10/24 08:51 Calcium 8.2 mg/dL (8.5-10.5) L 03/10/24 08:51 Total Bilirubin 0.7 mg/dL (0.15-1.2) 03/10/24 08:51 AST 32 U/L (0-40) 03/10/24 08:51 ALT 14 U/L (0-41) 03/10/24 08:51 Alkaline Phosphatase 81 U/L (40-130) 03/10/24 08:51 Troponin T Baseline 67 ng/L (0-15) H 03/10/24 08:51 Troponin T 120 Minute 60.91 ng/L (0-15) H 03/10/24 10:48 Delta Troponin T -6.09 ABS# (0-10) L 03/10/24 10:48 NT-Pro-B Natriuret Pep 70501 pg/mL (0-125) H 03/10/24 08:51 Total Protein 7.6 g/dL (6.6-8.7) 03/10/24 08:51 Albumin 3.8 g/dL (3.5-5.2) 03/10/24 08:51 Globulin 3.8 g/dL (1.3-4.6) 03/10/24 08:51 Procalcitonin 0.09 ng/mL (0-0.5) 03/10/24 08:51 All radiology interpretation(s) finalized by discharge Discharge Plan Discharge Patient Disposition: Admitted As Inpatient Admit Provider: Shahriar Nuñez Clinical Impression: CHF (congestive heart failure), CKD (chronic kidney disease) Condition: Stable Coding Level of Care Code ED Position Classification Manager for Jacoby Chowdhury
[2024-03-10 08:33] LABS: ABG PCO2 34.5 mmHg (35-45); ABG PH Result 7.52 (7.35-7.45); Alveolar-Arterial Oxygen Gradi 5.9 mmHg (5-10); Arterial Blood Gas Hematocrit 35.4 % (42-52); Base Excess ABG 5.1 mmol/L (-2.0-2.0); Blood Gas Allen Test Pos; Blood Gas Operator Identificat CAK; Blood Gas Sample Site Radial, left; Blood Gas Sample Type Arterial; Carboxyhemoglobin 1.2 %THgb (0.4-20.1); HGB O2 Sat 92.1 % (95-100); Ionized Calcium Level - ABG 1.1 mmol/L (1.1-1.4); Methemoglobin 0.4 % (0.4-1.5); Oxygen Device ROOM AIR; Oxygen Saturation ABG 93.6; PO2 ABG 61.8 mmHg (80.0-100.0); PO2 FiO2 Ratio Arterial Blood 294; Potassium Level - ABG 3.9 mmol/L (3.5-5.0); Total Hemoglobin 11.6 g/dL (14-18)
--- NOTE | 2024-03-10 09:15 | PC.PHAR ---
[place] [facility] [place]
[2024-03-10 09:46] LABS: Lactic Sepsis W/Reflex 1.7 mmol/L (0.5-2.2)
[2024-03-10 09:47] LABS: Basophils # 0.1 10^3/uL (0.0-0.1); Basophils % 0.4 %; Eosinophils # 0.2 10^3/uL (0.0-0.8); Eosinophils % 1.1 %; Hematocrit 38.5 % (37-53); Lymphocytes # 1.2 10^3/uL (0.8-4.8); Lymphocytes % 9.1 %; Mean Corpuscular HGB Conc 31.4 g/dL (30-55); Mean Corpuscular Hemoglobin 26.9 pg (27-33); Mean Corpuscular Volume 85.7 fl (82-101); Mean Platelet Volume 9.8 fL (7.4-10.4); Monocytes # 1.3 10^3/uL (0.2-0.9); Monocytes % 10.1 %; Neutrophils # 10.44 10^3/uL (1.8-7.7); Neutrophils % 78.8 %; Nucleated Red Blood Cells % 0 %; Platelet Count 144 10^3/cmm (157-399); Red Blood Count 4.49 10^6/uL (3.85-5.65); Red Cell Distribution Width 17.4 % (12.1-15.1); Troponin(5th) Baseline 67 ng/L (0-15); White Blood Count 13.24 10^3/uL (3.29-11.43)
--- NOTE | 2024-03-10 09:58 | ECG_ITS ---
[facility] Test Date: 2024-03-10 Pat Name: James Zaragoza Department: Room: Gender: Male Belt Splicer: : 1955 Requested By: Luis Antonio Bray Order Number: [id number] Huong MD: Vishnu Sr M.D. Measurements Intervals [place] Rate: 110 P: 52 FL: 174 QRS: -3 QRSD: 95 T: 34 QT: 323 QTc: 438 Interpretive Statements SINUS TACHYCARDIA ABNORMAL RHYTHM ECG Compared to ECG 03/01/2024 21:42:58 Sinus rhythm no longer present First degree AV block no longer present Myocardial infarct finding no longer present Electronically Signed On 03-10-2024 23:28:49 CDT by Vishnu Sr M.D. [id number]
[2024-03-10 10:03] LABS: Alanine Aminotransferase 14 U/L (0-41); Albumin Level 3.8 g/dL (3.5-5.2); Alkaline Phosphatase 81 U/L (40-130); Anion Gap 19.1 (5-19); Aspartate Amino Transferase 32 U/L (0-40); Blood Urea Nitrogen 23 mg/dL (8-23); Calcium 8.2 mg/dL (8.5-10.5); Carbon Dioxide 27 mmol/L (22-29); Chloride 99 mmol/L (98-107); Creatinine Clr Calc Pharmacy 71.7625; Globulin 3.8 g/dL (1.3-4.6); Glomerular Filtration Rate 60.6 mL/min (90-130); Glucose 101 mg/dL (65-115); Osmolality Calculated 296 mOsm/kg (285-295); Potassium 4.1 mmol/L (3.5-5.1); Sodium 141 mmol/L (136-145); Total Bilirubin 0.7 mg/dL (0.15-1.2); Total Protein 7.6 g/dL (6.6-8.7)
[2024-03-10 10:24] LABS: NT Pro B Type Natriuretic Pept 42925 pg/mL (0-125)
[2024-03-10 10:40] LABS: Procalcitonin 0.09 ng/mL (0-0.5)
[2024-03-10 11:12] LABS: Troponin 5 2HR 60.91 ng/L (0-15); Troponin 5 2HR Delta -6.09 ABS# (0-10)
[2024-03-10] MEDS: FUROsemide 10 mg/mL SDV 10mL 60 MG IVP (11:43)
--- NOTE | 2024-03-10 11:58 | P.HP_ITS ---
Providers/Chief Complaint 2 Admitting Physician: Shahriar Nuñez MD Primary Care Provider: Bandar Jones MD Chief Complaint: sob History of Present Illness James Zaragoza is a 68 year old male who presents to the emergency department with shortness of breath. He reports it started last night. He does not feel like he can take a deep breath. He reports increased swelling. He was recently in the hospital, and discharged on 03/08. He denies any fever. Occasional cough. He reports he has not smoked since his last hospital stay. No wheezing. No vomiting or diarrhea. During his last hospital stay he had significant renal failure, and had reduction of his diuretics. In the emergency department the patient received some oxygen and 60 mg of Lasix IV. Review of Systems 2 Const: Denies: fever(s) or chills Card: Reports: edema; Denies: chest pain Resp: Reports: dyspnea GI: Denies: abdominal pain, nausea, vomiting, hematochezia or melena Medications/Allergies Home Medications Medication Instructions Recorded Confirmed Last Taken Type wheelchair #1 ea 02/11/24 03/10/24 Unknown Rx albuterol sulfate 90 mcg/actuation 2 puff inhalation QID PRN 03/01/24 03/10/24 03/10/24 History aerosol inhaler (Ventolin HFA) Shortness Of Breath calcium carbonate 1,250 mg (6.25 x 200 mg calcium 03/08/24 03/10/24 03/09/24 Rx (500 mg)) PO TID #90 tabs cephalexin 500 mg capsule 500 mg PO BID 3 days #6 caps 03/08/24 03/10/24 03/10/24 Rx citalopram 10 mg tablet (Celexa) 10 mg PO DAILY #30 tabs 03/08/24 03/10/24 03/10/24 Rx ergocalciferol (vitamin D2) 1,250 50,000 unit PO Q7D 30 days #5 caps 03/08/24 03/10/24 03/07/24 Rx mcg (50,000 unit) capsule (Vitamin D2) levothyroxine 50 mcg tablet 50 mcg PO QAM #30 tabs 03/08/24 03/10/24 03/10/24 Rx Allergies Allergy/AdvReac Type Severity Reaction Status Date / Time No Known Allergies Allergy Unverified 02/11/24 09:41 PFSH Acute 2 PFSH: Medical History CAD (coronary artery disease) Hx [place], Smoker Obesity (BMI 30.0-34.9) Chronic back pain Hx of arterial ischemic stroke Hx of myocardial infarction COPD (chronic obstructive pulmonary disease) Hydrocele CHF (congestive heart failure) Surgical History History of appendectomy History of back surgery Family History Father Cancer Mother No problems noted. Social History Smoking and tobacco/nicotine status: current every day tobacco/nicotine user Quit status (tobacco/nicotine): not considering quitting Alcohol intake: current Alcohol intake frequency: 0-2 Drinks per Day Alcohol type: beer Substance/Drug Use: never Marital status: / Vitals/I&O/Wt Last Vital Signs Temp 98.2 F 03/10/24 08:01 Pulse 114 H 03/10/24 11:40 Resp 29 H 03/10/24 11:40 BP 129/94 03/10/24 11:40 Pulse Ox 96 03/10/24 11:40 O2 Del Method Nasal Cannula 03/10/24 11:40 O2 Flow Rate 2 03/10/24 11:40 Weight last 48 hrs Weight 103.419 kg Physical Exam 2 Narrative: General exam no obvious distress, on 2 L of oxygen. HEENT: Atraumatic normocephalic. Oropharynx clear Neck is supple no lymphadenopathy thyromegaly Cardiovascular tachycardic, no murmur Lungs clear but with diminished breath sounds at the bases Abdomen is soft with positive bowel sounds. No obvious organomegaly Extremities no cyanosis clubbing. 1+ edema is noted. Data 03/10/24 08:51 03/10/24 08:51 Other Labs: ABG on room air demonstrated pH 7.52, pCO2 35, pO2 62 Lactic acid, LFTs normal. Calcium 8.2 and albumin 3.8. Troponin 67 with repeat of 60. BNP 43,000. Procalcitonin 0.09. Chest x-ray by my read consistent with interstitial edema. Spine stimulator noted. EKG per my read demonstrates sinus tachycardia, left axis deviation, no acute changes. Echocardiogram during last hospital stay demonstrated an EF around 50%, mild aortic valve regurgitation. Micro: Microbiology 03/10/24 08:40 Blood Culture - Preliminary Blood SPECIMEN COLLECTED 03/10/24 08:51 Blood Culture - Preliminary Blood SPECIMEN COLLECTED A&P Assessment and plan (1) Acute congestive heart failure: Patient appears to have acute congestive heart failure, diastolic predominance. His last EF was 50%. He does not show significant trend in troponin. He was recently in the hospital with severe renal failure, received dialysis, and diuretics werenot continued at discharge which was appropriate. He has felt increased swelling lately, culminating in shortness of breath occurring last night and initiation of 2 L of oxygen. He has used oxygen in the past, had a history of heart failure in the past, and has had a history of COPD as well. No history of hemoptysis CTA and earlier in January demonstrated no pulmonary embolism No focal pneumonia. Procalcitonin is not elevated. Lasix 60 mg IV given in the emergency department. Continue close monitoring, and reassess for repeat dose this afternoon. He will need daily Lasix with close follow-up of his creatinine on discharge. BMP, magnesium, CBC in the morning No reason to repeat echocardiogram currently. Initiate low-dose beta-elif (2) COPD (chronic obstructive pulmonary disease): Initiate budesonide twice daily DuoNeb 4 times daily Qualifiers: COPD type: emphysema Emphysema type: panlobular Qualified Code(s): J 43.1 - Panlobular emphysema Plan Recent history of renal failure, monitor creatinine closely Tobacco use. He reports he quit with his last hospital stay Other medical problems as outlined in past medical history Full code Lovenox for DVT prophylaxis Attestations 2 Medical Necessity Statement*: Will need less than 2 midnight stay for evaluation and treatment of congestive heart failure with IV diuretics. Diagnoses Acute congestive heart failure I50.9 Panlobular emphysema J43.1 COPD type: emphysema Emphysema type: panlobular Time Spent (min) 42
--- NOTE | 2024-03-10 14:02 | ECG_ITS ---
[facility] Test Date: 2024-03-10 Pat Name: James Zaragoza Department: Room: 104 Gender: Male Customer Care Agent: : 1955 Requested By: Luis Antonio Bray Order Number: [id number] Huong MD: Vishnu Sr M.D. Measurements Intervals [place] Rate: 107 P: 24 IN: 144 QRS: 0 QRSD: 91 T: 47 QT: 349 QTc: 467 Interpretive Statements SINUS TACHYCARDIA WITH OCCASIONAL VENTRICULAR PREMATURE COMPLEXES WITH OCCASIONAL SUPRAVENTRICULAR PREMATURE COMPLEXES ABNORMAL RHYTHM ECG Compared to ECG 03/10/2024 09:58:16 Ventricular premature complex(es) now present Electronically Signed On 03-10-2024 23:31:12 CDT by Vishnu Sr M.D. [id number]
[2024-03-10] MEDS: enoxaparin 40 mg/0.4 mL Syringe SUBCUT (15:11)
[2024-03-10 15:27] LABS: Troponin 5 6HR 59.98 ng/L (0-15)
[2024-03-10 15:28] LABS: Troponin 5 6HR Delta -7.02 ng/L (0-12)
[2024-03-10] MEDS: ipratropium-albuterol 3 mL Neb INHALATION (20:12)
[2024-03-10] MEDS: budesonide 0.5 mg/2 mL Neb INHALATION (20:12)
[2024-03-10] MEDS: metoprolol tartrate 25 mg Tablet 12.5 MG PO (20:26)
[2024-03-11] VITALS (8 sets, daily range): BP systolic 94–126; BP diastolic 60–92; PULSE 73–103; RESP 17–32; TEMP 36.6–36.9; O2SAT 92–97
[2024-03-11 05:40] LABS: Basophils # 0.1 10^3/uL (0.0-0.1); Basophils % 0.4 %; Eosinophils # 0.1 10^3/uL (0.0-0.8); Eosinophils % 0.8 %; Hematocrit 32.2 % (37-53); Lymphocytes # 1.4 10^3/uL (0.8-4.8); Lymphocytes % 10.2 %; Mean Corpuscular HGB Conc 31.7 g/dL (30-55); Mean Corpuscular Hemoglobin 27.3 pg (27-33); Mean Corpuscular Volume 86.3 fl (82-101); Mean Platelet Volume 9.8 fL (7.4-10.4); Monocytes # 1.7 10^3/uL (0.2-0.9); Monocytes % 11.9 %; Neutrophils % 76.1 %; Nucleated Red Blood Cells % 0 %; Platelet Count 133 10^3/cmm (157-399); Red Blood Count 3.73 10^6/uL (3.85-5.65); Red Cell Distribution Width 17.4 % (12.1-15.1); White Blood Count 13.92 10^3/uL (3.29-11.43)
[2024-03-11] MEDS: levothyroxine 50 mcg Tablet PO (05:50)
[2024-03-11 05:55] LABS: Alanine Aminotransferase 13 U/L (0-41); Albumin Level 3.2 g/dL (3.5-5.2); Alkaline Phosphatase 67 U/L (40-130); Anion Gap 18.1 (5-19); Aspartate Amino Transferase 22 U/L (0-40); Blood Urea Nitrogen 20 mg/dL (8-23); Calcium 7.4 mg/dL (8.5-10.5); Carbon Dioxide 25 mmol/L (22-29); Chloride 98 mmol/L (98-107); Creatinine Clr Calc Pharmacy 71.2963; Globulin 3.5 g/dL (1.3-4.6); Glomerular Filtration Rate 60.6 mL/min (90-130); Glucose 101 mg/dL (65-115); Magnesium 1.1 mg/dL (1.7-2.3); Osmolality Calculated 287 mOsm/kg (285-295); Potassium 4.1 mmol/L (3.5-5.1); Sodium 137 mmol/L (136-145); Total Bilirubin 0.8 mg/dL (0.15-1.2); Total Protein 6.7 g/dL (6.6-8.7)
--- NOTE | 2024-03-11 08:26 | PM.DCS ---
Discharge Providers Date of Admission: 03/10/24 11:24 Date of Discharge: March 11, 2024 Attending Provider at Admission: Shahriar Nuñez MD Attending Provider at Discharge: Shahriar Nuñez MD Primary Care Provider: Bandar Jones MD Diagnoses at Discharge Discharge Diagnosis (1) Acute congestive heart failure: Status: Acute (2) COPD (chronic obstructive pulmonary disease): Status: Acute Qualifiers: COPD type: emphysema Emphysema type: panlobular Qualified Code(s): J43.1 - Panlobular emphysema Reason for Visit Reason for Visit: sob Hospital Course Hospital Course James is a 68-year-old male who presented to the hospital with shortness of breath. He reported it started the night prior to coming in. He was recently in the hospital and taken off his diuretics secondary to renal failure. He reports increasing lower extremity edema at the nursing facility where he is doing rehab. He has not had any fevers, nor productive cough. During his hospital stay he was given 60 mg of Lasix IV, with resolution of many of his symptoms. Beta-elif, and ultimately low-dose aspirin was added to his regimen. He was given Lasix 20 mg a day, with close follow-up in CHF precautions. This may need to be increased. He will need a BMP next week. He was given opportunity ask questions and agreed with the plan. An echo was not performed as it was recently performed and demonstrated an EF of around 50%. He will get an outpatient nuclear stress test. I also instituted treatment for COPD as he has a long history of smoking recently stopped. He will take DuoNeb every 6 hours as needed and budesonide twice daily. He will finish up a short course of prednisone. Physical Exam Narrative: General exam no distress Neck is supple Cardiovascular regular rate and rhythm without murmur Lungs a few bilateral expiratory wheezes. Improved expansion Abdomen is soft Extremities no sinus clubbing or edema. Edema present from yesterday has resolved. Discharge Data Studies Completed and Pending Completed Studies During Hospitalization Category Date Time Status XR chest 1V portable [id number] Stat Exams 03/10/24 08:02 Completed Pending at discharge Category Date Time Status Blood Culture Stat Lab 03/10/24 08:40 Results Radiology Impressions Chest X-Ray 03/10/24 08:02 IMPRESSION: Suspect right upper lobe airspace disease, and possibly in both lung bases as well. This could be due to pneumonia given the history. This could be clarified with CT CHEST, as clinically directed. Laboratory Results WBC 13.92 10^3/uL (3.29-11.43) H 03/11/24 04:59 RBC 3.73 10^6/uL (3.85-5.65) L 03/11/24 04:59 Hgb 10.20 g/dL (11.27-16.99) L 03/11/24 04:59 Hct 32.2 % (37-53) L 03/11/24 04:59 MCV 86.3 fl (82-101) 03/11/24 04:59 MCH 27.3 pg (27-33) 03/11/24 04:59 MCHC 31.7 g/dL (30-55) 03/11/24 04:59 RDW 17.4 % (12.1-15.1) H 03/11/24 04:59 Plt Count 133 10^3/cmm (157-399) L 03/11/24 04:59 MPV 9.8 fL (7.4-10.4) 03/11/24 04:59 Neut % (Auto) 76.1 % 03/11/24 04:59 Lymph % (Auto) 10.2 % 03/11/24 04:59 [place] % (Auto) 11.9 % 03/11/24 04:59 Eos % (Auto) 0.8 % 03/11/24 04:59 Baso % (Auto) 0.4 % 03/11/24 04:59 Neut # (Auto) 10.60 10^3/uL (1.8-7.7) H 03/11/24 04:59 Lymph # (Auto) 1.4 10^3/uL (0.8-4.8) 03/11/24 04:59 [place] # (Auto) 1.7 10^3/uL (0.2-0.9) H 03/11/24 04:59 Eos # (Auto) 0.1 10^3/uL (0.0-0.8) 03/11/24 04:59 Baso # (Auto) 0.1 10^3/uL (0.0-0.1) 03/11/24 04:59 Nucleated RBC % (auto) 0 % 03/11/24 04:59 Nucleated RBCs # 0.0 /100WBC 03/11/24 04:59 Specimen Type Arterial 03/10/24 08:22 Sample Site Radial, left 03/10/24 08:22 ABG pH 7.52 (7.35-7.45) H 03/10/24 08:22 ABG pCO2 34.5 mmHg (35-45) L 03/10/24 08:22 ABG pO2 61.8 mmHg (80.0-100.0) L 03/10/24 08:22 ABG PO2/FiO2 Ratio 294 03/10/24 08:22 ABG HCO3 28.0 mmol/L (22-26) H 03/10/24 08:22 ABG O2 Saturation 93.6 03/10/24 08:22 ABG Base Excess 5.1 mmol/L (-2.0-2.0) H 03/10/24 08:22 Lucian Test Pos 03/10/24 08:22 A-a O2 Gradient 5.9 mmHg (5-10) 03/10/24 08:22 Hematocrit 35.4 % (42-52) L 03/10/24 08:22 Hgb O2 Saturation 92.1 % (95-100) L 03/10/24 08:22 Carboxyhemoglobin 1.2 %THgb (0.4-20.1) 03/10/24 08:22 Methemoglobin 0.4 % (0.4-1.5) 03/10/24 08:22 Total Hemoglobin 11.6 g/dL (14-18) L 03/10/24 08:22 Sodium 142.0 mmol/L (131-143) 03/10/24 08:22 Potassium 3.9 mmol/L (3.5-5.0) 03/10/24 08:22 Glucose 104.0 mg/dL (70-115) 03/10/24 08:22 Ionized Calcium 1.1 mmol/L (1.1-1.4) 03/10/24 08:22 O2 Delivery Device Room air 03/10/24 08:22 FiO2 21.0 % 03/10/24 08:22 Advertising Columnist ID Cak 03/10/24 08:22 Sodium 137 mmol/L (136-145) 03/11/24 04:59 Potassium 4.1 mmol/L (3.5-5.1) 03/11/24 04:59 Chloride 98 mmol/L (98-107) 03/11/24 04:59 Carbon Dioxide 25 mmol/L (22-29) 03/11/24 04:59 Anion Gap 18.1 (5-19) 03/11/24 04:59 BUN 20 mg/dL (8-23) 03/11/24 04:59 Creatinine 1.2 mg/dL (0.7-1.2) 03/11/24 04:59 GFR Calculation 60.6 mL/min (90-130) L 03/11/24 04:59 Glucose 101 mg/dL (65-115) 03/11/24 04:59 Calculated Osmolality 287 mOsm/kg (285-295) 03/11/24 04:59 Lactic Acid 1.7 mmol/L (0.5-2.2) 03/10/24 08:51 Calcium 7.4 mg/dL (8.5-10.5) L 03/11/24 04:59 Magnesium 1.1 mg/dL (1.7-2.3) L 03/11/24 04:59 Total Bilirubin 0.8 mg/dL (0.15-1.2) 03/11/24 04:59 AST 22 U/L (0-40) 03/11/24 04:59 ALT 13 U/L (0-41) 03/11/24 04:59 Alkaline Phosphatase 67 U/L (40-130) 03/11/24 04:59 Troponin T Baseline 67 ng/L (0-15) H 03/10/24 08:51 Troponin T 120 Minute 60.91 ng/L (0-15) H 03/10/24 10:48 Delta Troponin T -6.09 ABS# (0-10) L 03/10/24 10:48 Troponin T Hi Sens 6Hr 59.98 ng/L (0-15) H 03/10/24 15:00 Troponin T Hi Sens 6Hr Delta -7.02 ng/L (0-12) L 03/10/24 15:00 NT-Pro-B Natriuret Pep 88570 pg/mL (0-125) H 03/10/24 08:51 Total Protein 6.7 g/dL (6.6-8.7) 03/11/24 04:59 Albumin 3.2 g/dL (3.5-5.2) L 03/11/24 04:59 Globulin 3.5 g/dL (1.3-4.6) 03/11/24 04:59 Procalcitonin 0.09 ng/mL (0-0.5) 03/10/24 08:51 Vitals Last Vital Signs Temp 98.0 F 03/11/24 08:00 Pulse 91 03/11/24 08:00 Resp 27 H 03/11/24 08:00 BP 107/73 03/11/24 08:00 Pulse Ox 92 03/11/24 04:00 O2 Del Method Room Air 03/11/24 04:00 O2 Flow Rate 2 03/10/24 20:12 Discharge Plan Discharge Patient Disposition: Xfer SNF Condition: Stable Prescriptions: New ipratropium-albuterol 0.5 mg-3 mg(2.5 mg base)/3 mL Solution For Nebulization 3 ml inhalation Q6H Qty: 240 0RF prednisone 20 mg Tablet 40 mg PO DAILY Qty: 10 0RF budesonide 0.5 mg/2 mL Suspension For Nebulization 0.5 mg inhalation BID.RESPIRATORY Qty: 120 0RF metoprolol tartrate 25 mg Tablet 12.5 mg PO BID@0900,2100 Qty: 30 0RF Lasix 20 mg tablet 20 mg PO DAILY Qty: 30 0RF aspirin 81 mg capsule 81 mg PO DAILY Qty: 30 0RF Continued (DME) wheelchair See Rx Instructions .Route .MEDSUPPLY Qty: 1 0RF Rx Instructions: As directed levothyroxine 50 mcg Tablet 50 mcg PO QAM Qty: 30 0RF cephalexin 500 mg Capsule 500 mg PO BID 3 Days Qty: 6 0RF calcium carbonate 200 mg calcium (500 mg) Tablet,Chewable 1,250 mg PO TID Qty: 90 0RF ergocalciferol (vitamin D2) [Vitamin D2] 1,250 mcg (50,000 unit) Capsule 50,000 unit PO Q7D 30 Days Qty: 5 0RF citalopram [Celexa] 10 mg tablet 10 mg PO DAILY Qty: 30 0RF Discontinued albuterol sulfate [Ventolin HFA] 90 mcg/actuation HFA aerosol inhaler 2 puff inhalation QID PRN (Reason: Shortness Of Breath) Discharge Orders: Discharge Order (Routine); Ordered 03/11/24 Ordered By: Shahriar Nuñez Other Ambulatory Orders: Sestamibi Stress Test Request (Routine) Timeframe: 1 Week Facility: [facility] - Location: Cardiac Diagnostic Laboratory Ordered By: Shahriar Nuñez Referrals: [facility] [Outside] Bandar Jones MD [Primary Care Provider] - Celeste Farmer FNP [Nurse Practitioner] - 2 weeks Discharge Diet: Cardiac Discharge Activity: Increase activity as tolerated Patient Instructions: Metoprolol (By mouth) (Lopressor, Toprol XL), Furosemide (By mouth) (Lasix), Ipratropium (By breathing) (Atrovent HFA), Prednisone (By mouth) (predniSONE Intensol, Prednicot, Deltasone, Sherine), Aspirin (By mouth) (Katia Extra Strength, Katia Aspirin Children's,..., Budesonide (By breathing) (Flex de Pulmicort, Pulmicort Flexhaler,..., Heart Failure (DC), CHF Stoplight Activity Restrictions/Additional Instructions: Weight daily for 1 week. Notify nurse practitioner if weight greater than 2 pounds 2 days in a row Oxygen 2 L per nasal cannula, titrate for sat greater than or equal to 92% BMP Thursday of next week Take all medicine as prescribed Cardiac diet, low-salt Return for any concerns Nuclear stress test as an outpatient Cardiology follow-up Discharge Attestations Time Spent in Discharge Care*: greater than 30 min Status at Discharge: Cognitive status at discharge: cognitively intact, Behavioral status at discharge: cooperative, Quality Metrics Clinical Quality Measures [ No reported AMI, CVA or VTE this stay] Coding Level of Care Code 93890 Total time (in minutes) for Discharge: 35 Diagnoses Acute congestive heart failure I50.9 Panlobular emphysema J43.1 COPD type: emphysema Emphysema type: panlobular
[2024-03-11] MEDS: budesonide 0.5 mg/2 mL Neb INHALATION (08:28)
[2024-03-11] MEDS: ipratropium-albuterol 3 mL Neb INHALATION (08:28)
[2024-03-11] MEDS: FUROsemide 40 mg Tablet PO (08:46)
[2024-03-11] MEDS: citalopram 20 mg Tablet 10 MG PO (08:47)
[2024-03-11] MEDS: predniSONE 20 mg Tablet 40 MG PO (08:47)
[2024-03-11] MEDS: metoprolol tartrate 25 mg Tablet 12.5 MG PO (08:47)
[2024-03-11] MEDS: magnesium sulfate premix 2 GM/50 ML PIGGYBACK IV (08:47)
--- NOTE | 2024-03-11 09:54 | PC.NURSE ---
3 attempts to call report and all choices went to voice mail and no one would answer the phone. Message left and will reattempt later.
--- NOTE | 2024-03-11 10:15 | PC.NURSE ---
Cammie Mendez RN called from [facility] and received report.
--- NOTE | 2024-03-11 11:22 | PC.CHAP ---
Pastoral Care Encounter/Spiritual Assessment Type of Contact [] Declined sql server developer visit [] Patient/Family/Request visit [] Outpatient visit [] Follow-up visit [] Physician referral [] Code/Alert [x] Routine visit [] Staff referral [] Actively dying [] Patient sleeping [] Family support [] [] Out of room [] Palliative care [] [] Receiving care in room [] Pre-surgical visit [] Trauma [] Long length of stay [] ICU visit [] Other: Relational/Emotional Strength [x] Patient feels connected with others/family/visitors/staff [] Distress [] Loneliness/isolation [] Abandonment Spirituality of Patient [] Person of Eva [] Attends Moravian of their Eva [x] Believes in Prayer [] Reads Bible or Voodoo materials [] There are Spiritual issues to be addressed Network Mgr Interventions [x] Prayer [] Active listening [] Non-anxious presence [] Spiritual/emotional support [] Crisis/trauma care [] Spiritual counseling [] Bereavement support [] Provided bereavement packet [] Provided Bible/devotional materials [] Provided toy/stuffed animal, coloring book to patient or family member [] Provided Communion [] Anointing/[place] [] Salvation [] Completed spiritual assessment [] Other: Impact on Illness or Injury [] Angry [] Fearful [] Anxious [] Often cries [] Exhaustion [] Unable to work [] Unable to attend jehovah's witness [] Unable to walk/stand [] Unable to read [] Unable to drive [] Unable to eat/drink [] Unable to sleep [] Unable to be with family [] Patient intubated [] Other: Summary Time spent with patient 5 Min
--- NOTE | 2024-03-11 12:52 | PC.NURSE ---
Discharge Note Patient discharged to [[facility]] via [w/c to transportation vehicle] accompanied by [[employer] flatbed truck driver]. Discharge instructions reviewed with patient and/or loss control representative. Mobile pharmacy medications and/or prescriptions provided. Belongings/home medications returned.
== END 2024-03-11 12:55 | disposition skilled nursing facility (03) ==
LOC: ER 09:22 → CSU 11:59
PROVIDERS: Admitting Provider Internal Medicine; Emergency Provider Family Medicine; PCP Family Medicine Adult Medicine; Visit Provider Internal Medicine
DX: I50.9 Heart failure, unspecified (principal); J43.1 Panlobular emphysema; I25.2 Old myocardial infarction; I25.10 Atherosclerotic heart disease of native coronary artery without angina pectoris; F17.200 Nicotine dependence, unspecified, uncomplicated
CPT/HCPCS: 36415; 36600; 71045; 80051; 80053; 82330; 82805; 83605; 83735; 83880; 84145; 84484; 85025; 87040; 93005; 94640; 96365; 96372; 96375; 96376; 99285; G0378; J1650; J1940; J3475; J7512; J7626

== ENCOUNTER → 2024-04-08 10:18 | Outpatient (BNVA) | payer MEDICARE, SELFPAY | PROVIDERS: PCP Family Medicine Adult Medicine; Visit Provider Family Medicine Adult Medicine | DX: M62.82 Rhabdomyolysis (principal); N18.9 Chronic kidney disease, unspecified; E03.9 Hypothyroidism, unspecified | CPT/HCPCS: 80053; 84443; 85025 ==